=== PATIENT | male | born 1960 | race Caucasian/White ===

== ENCOUNTER 2018-02-20 08:46 | Day surgery (SDC) | payer OTHER ==
[2018-02-15 10:05] VITALS: BMI 37.0
[~2018-02-20 08:46] MED LIST: LACTATED RINGERS 1,000 ML IV SCH
[2018-02-20 09:04] VITALS: TEMP 97.6
[2018-02-20] MEDS ORDERED: PROPOFOL 10 MG/ML 20 ML VIAL IV ONE (10:11)
[2018-02-20] MEDS ORDERED: KETAMINE 10 MG/ML 20 ML VIAL ONE (10:11)
--- NOTE | 2018-02-20 10:12 | P.GSHP ---
History of Present Illness H&P Date: 02/20/18 Chief Complaint: Screening colonoscopy This is a 57-year-old male referred from [facility] clinic. Patient safe for screening colonoscopy. He's never had a colonoscopy before. Past Medical History Past Medical History: Asthma, GERD/Reflux, Hypertension, Sleep Apnea/CPAP/BIPAP Additional Past Medical History / Comment(s): seasonal allergies,occas. cough, has cpap History of Any Multi-Drug Resistant Organisms: None Reported Past Surgical History: Appendectomy Past Anesthesia/Blood Transfusion Reactions: No Reported Reaction Smoking Status: Never smoker - Past Family History Mother Family Medical History: No Reported History Medications and Allergies Home Medications Medication Instructions Recorded Confirmed Type Montelukast [Singulair] 10 mg PO DAILY 07/23/15 02/20/18 History Naproxen 500 mg PO Q12HR PRN 07/23/15 02/20/18 History Omeprazole [PriLOSEC] 20 mg PO DAILY 07/23/15 02/20/18 History Aspirin [Adult Low Dose Aspirin EC] 81 mg PO DAILY 04/19/16 02/20/18 History Budesonide-Formot 160-4.5 Mcg 2 puff INHALATION RT-BID 04/19/16 02/20/18 History [Symbicort 160-4.5 Mcg Inhaler] Atorvastatin [Lipitor] 40 mg PO HS 06/19/16 02/20/18 History Metoprolol Tartrate [Lopressor] 25 mg PO BID 06/19/16 02/20/18 History Vardenafil HCl [Levitra] 20 mg PO DAILY PRN 06/19/16 02/20/18 History Zolpidem [Ambien] 10 mg PO HS PRN #6 tab 06/19/16 02/20/18 Rx Allergies Allergy/AdvReac Type Severity Reaction Status Date / Time codeine Allergy Rash/Hives Verified 02/20/18 09:02 Surgical - Exam Vital Signs Temp Pulse Resp BP Pulse Ox 97.6 F 67 16 181/94 98 02/20/18 09:03 02/20/18 09:03 02/20/18 09:03 02/20/18 09:03 02/20/18 09:03 - General well developed, no distress - Eyes PERRL - ENT normal pinna - Neck no masses - Respiratory normal expansion - Cardiovascular Rhythm: regular - Abdomen Abdomen: soft, non tender Assessment and Plan Assessment: We will perform screening colonoscopy
--- NOTE | 2018-02-20 10:24 | P.OP ---
Date of Procedure: 02/20/18 Preoperative Diagnosis: Screening colonoscopy Postoperative Diagnosis: Normal colon Procedure(s) Performed: Colonoscopy Anesthesia: MAC Surgeon: Alex Melgar Pathology: none sent Condition: stable Disposition: PACU Description of Procedure: PROCEDURE: The patient was placed on the endoscopy table in the lateral position. Digital rectal examination was performed which revealed no abnormalities. The prostate was symmetrical without nodules. Flexible colonoscope was then placed in the patient's anus and passed throughout the entire colon. The ileocecal valve was visualized. The cecum, ascending, transverse, descending and sigmoid colon were normal. The rectum was normal as well. There were no masses, polyps or diverticula noted in the entire colon. SUMMARY OF FINDINGS: Normal colonoscopy.
[2018-02-20 11:11] VITALS: BP 150/80; PULSE 77; RESP 18
== END 2018-02-20 11:18 | disposition home or self-care (01) ==
LOC: ORWHC2ENDO 08:46
PROVIDERS: ATTEND Surgery
DX: Z12.11 Encounter for screening for malignant neoplasm of colon (principal); K21.9 Gastro-esophageal reflux disease without esophagitis; I10 Essential (primary) hypertension; E78.5 Hyperlipidemia, unspecified; J44.9 Chronic obstructive pulmonary disease, unspecified; G47.33 Obstructive sleep apnea (adult) (pediatric); Z99.89 Dependence on other enabling machines and devices; Z79.82 Long term (current) use of aspirin; Z79.51 Long term (current) use of inhaled steroids; Z79.899 Other long term (current) drug therapy; Z88.5 Allergy status to narcotic agent
CPT/HCPCS: J2704; G0121

== ENCOUNTER 2019-06-28 11:36 | Emergency (ER) | payer OTHER ==
[2019-06-28 11:48] VITALS: TEMP 98.4
[2019-06-28 12:06] LABS: Glucose,Whole Blood 329 mg/dL (75-99)
[2019-06-28] MEDS ORDERED: DIAZEPAM 5 MG/ML 2 ML INJ IVP STA (12:18)
[2019-06-28] MEDS ORDERED: SODIUM CHLORIDE 0.9% 1,000 ML IV STA (12:18)
[2019-06-28] MEDS ORDERED: MECLIZINE 25 MG TAB PO STA (12:18)
[2019-06-28] MEDS ORDERED: ONDANSETRON 4 MG/2 ML VIAL IVP STA (12:19)
--- NOTE | 2019-06-28 12:28 | ED ---
General Adult HPI - General Chief complaint: Dizziness Stated complaint: vision problems Time Seen by Provider: 06/28/19 11:45 Source: patient, RN notes reviewed, old records reviewed Mode of arrival: ambulatory Limitations: no limitations - History of Present Illness Initial comments: This is a 58-year-old male resents to the emergency department complaining of dizziness. 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 Patient states he came in and then has gotten continually worse per patient states anytime he moves his head everything starts to spin around. Patient states she's gets a slight headache and his temporal region bilaterally patient denies any numbness weakness. Patient denies any speech problems. Patient states he is very nauseated. Patient also states he has not had this before. Patient denies any new hearing deficit or ringing in ears. Patient states his vision appears to be a little blurred as well. Patient denies any chest pain palpitations difficulty breathing shortness of breath. Patient denies any abdominal pain. Patient denies any recent injury or fall. - Related Data Home Medications Medication Instructions Recorded Confirmed Montelukast [Singulair] 10 mg PO DAILY 07/23/15 02/20/18 Naproxen 500 mg PO Q12HR PRN 07/23/15 02/20/18 Omeprazole [PriLOSEC] 20 mg PO DAILY 07/23/15 02/20/18 Aspirin [Adult Low Dose Aspirin EC] 81 mg PO DAILY 04/19/16 02/20/18 Budesonide-Formot 160-4.5 Mcg 2 puff INHALATION RT-BID 04/19/16 02/20/18 [Symbicort 160-4.5 Mcg Inhaler] Atorvastatin [Lipitor] 40 mg PO HS 06/19/16 02/20/18 Metoprolol Tartrate [Lopressor] 25 mg PO BID 06/19/16 02/20/18 Vardenafil HCl [Levitra] 20 mg PO DAILY PRN 06/19/16 02/20/18 Previous Rx's Medication Instructions Recorded Zolpidem [Ambien] 10 mg PO HS PRN #6 tab 06/19/16 Meclizine [Antivert] 25 mg PO TID #20 tab 06/28/19 Allergies Allergy/AdvReac Type Severity Reaction Status Date / Time codeine Allergy Rash/Hives Verified 02/20/18 09:02 morphine Allergy Rash/Hives Verified 06/28/19 11:49 sulfacetamide Allergy Rash/Hives Verified 06/28/19 11:49 [From Sulfamide] Review of Systems ROS Statement: Those systems with pertinent positive or pertinent negative responses have been documented in the HPI. ROS Other: All systems not noted in ROS Statement are negative. Past Medical History Past Medical History: Asthma, GERD/Reflux, Hypertension, Sleep Apnea/CPAP/BIPAP Additional Past Medical History / Comment(s): seasonal allergies,occas. cough, has cpap History of Any Multi-Drug Resistant Organisms: None Reported Past Surgical History: Appendectomy Past Anesthesia/Blood Transfusion Reactions: No Reported Reaction Past Psychological History: No Psychological Hx Reported Smoking Status: Never smoker - Past Family History Mother Family Medical History: No Reported History General Exam - General Exam Comments Initial Comments: GENERAL: Patient is well-developed and well-nourished. Patient is nontoxic and well- hydrated and is in moderate distress. ENT: Neck is soft and supple. No significant lymphadenopathy is noted. Oropharynx is clear. Moist mucous membranes. Neck has full range of motion without eliciting any pain. EYES: The sclera were anicteric and conjunctiva were pink and moist. Extraocular movements were intact and pupils were equal round and reactive to light. Eyelids were unremarkable. PULMONARY: Unlabored respirations. Good breath sounds bilaterally. No audible rales rhonchi or wheezing was noted. CARDIOVASCULAR: There is a regular rate and rhythm without any murmurs gallops or rubs. ABDOMEN: Soft and nontender with normal bowel sounds. SKIN: Skin is clear with no lesions or rashes and otherwise unremarkable. NEUROLOGIC: Patient is alert and oriented x3. Cranial nerves II through XII are grossly intact. Motor and sensory are also intact. Normal speech, volume and content. Symmetrical smile. Cerebellar testing finger to nose was normal. MUSCULOSKELETAL: Normal extremities with adequate strength and full range of motion. No lower extremity swelling or edema. No calf tenderness. LYMPHATICS: No significant lymphadenopathy is noted PSYCHIATRIC: Normal psychiatric evaluation. Limitations: no limitations Course Vital Signs 06/28/19 06/28/19 11:44 15:09 Temperature 98.4 F Pulse Rate 69 71 Respiratory 16 16 Rate Blood Pressure 181/97 133/93 O2 Sat by Pulse 94 L 98 Oximetry Medical Decision Making - Medical Decision Making EKG shows normal sinus rhythm at 75 bpm MO interval 270 QRS 94 QT interval 398 QTC is 444 patient's EKG shows no acute abnormalities. CT of the brain shows no acute abnormality. CT angiogram of the head and neck show no acute abnormalities. Patient received Valium and Antivert and was feeling considerably better. Patient's sugar was elevated so I did give him some insulin here but he just got off the Medrol Dosepak this morning and he will be following up with his primary medical care doctor. - Lab Data Result diagrams: 06/28/19 11:59 06/28/19 15:01 Lab Results 06/28/19 06/28/19 06/28/19 Range/Units 11:59 11:59 11:59 WBC 9.6 (3.8-10.6) k/uL RBC 5.49 (4.30-5.90) m/uL Hgb 15.7 (13.0-17.5) gm/dL Hct 45.7 (39.0-53.0) % MCV 83.2 (80.0-100.0) fL MCH 28.6 (25.0-35.0) pg MCHC 34.3 (31.0-37.0) g/dL RDW 12.8 (11.5-15.5) % Plt Count 271 (150-450) k/uL Neutrophils % 69 % Lymphocytes % 21 % Monocytes % 6 % Eosinophils % 1 % Basophils % 2 % Neutrophils # 6.6 (1.3-7.7) k/uL Lymphocytes # 2.0 (1.0-4.8) k/uL Monocytes # 0.6 (0-1.0) k/uL Eosinophils # 0.1 (0-0.7) k/uL Basophils # 0.2 (0-0.2) k/uL PT 10.8 (9.0-12.0) sec INR 1.0 (<1.2) APTT 22.4 (22.0-30.0) sec Sodium (137-145) mmol/L Potassium (3.5-5.1) mmol/L Chloride (98-107) mmol/L Carbon Dioxide (22-30) mmol/L Anion Gap mmol/L BUN (9-20) mg/dL Creatinine (0.66-1.25) mg/dL Est GFR (CKD-EPI)AfAm (>60 ml/min/1.73 sqM) Est GFR (CKD-EPI)NonAf (>60 ml/min/1.73 sqM) Glucose (74-99) mg/dL POC Glucose (mg/dL) (75-99) mg/dL POC Glu Body Line Finisher ID Calcium (8.4-10.2) mg/dL Magnesium (1.6-2.3) mg/dL Total Bilirubin (0.2-1.3) mg/dL AST (17-59) U/L ALT (21-72) U/L Alkaline Phosphatase (38-126) U/L Troponin I (0.000-0.034) ng/mL Total Protein (6.3-8.2) g/dL Albumin (3.5-5.0) g/dL Urine Color Yellow Urine Appearance Clear (Clear) Urine pH 6.0 (5.0-8.0) Ur Specific Pella 1.042 H (1.001-1.035) Urine Protein Trace H (Negative) Urine Glucose (UA) 4+ H (Negative) Urine Ketones Trace H (Negative) Urine Blood Negative (Negative) Urine Nitrite Negative (Negative) Urine Bilirubin Negative (Negative) Urine Urobilinogen <2.0 (<2.0) mg/dL Ur Leukocyte Esterase Negative (Negative) 06/28/19 06/28/19 06/28/19 Range/Units 12:04 15:01 15:01 WBC (3.8-10.6) k/uL RBC (4.30-5.90) m/uL Hgb (13.0-17.5) gm/dL Hct (39.0-53.0) % MCV (80.0-100.0) fL MCH (25.0-35.0) pg MCHC (31.0-37.0) g/dL RDW (11.5-15.5) % Plt Count (150-450) k/uL Neutrophils % % Lymphocytes % % Monocytes % % Eosinophils % % Basophils % % Neutrophils # (1.3-7.7) k/uL Lymphocytes # (1.0-4.8) k/uL Monocytes # (0-1.0) k/uL Eosinophils # (0-0.7) k/uL Basophils # (0-0.2) k/uL PT (9.0-12.0) sec INR (<1.2) APTT (22.0-30.0) sec Sodium 139 (137-145) mmol/L Potassium 3.9 (3.5-5.1) mmol/L Chloride 106 (98-107) mmol/L Carbon Dioxide 28 (22-30) mmol/L Anion Gap 5 mmol/L BUN 19 (9-20) mg/dL Creatinine 0.91 (0.66-1.25) mg/dL Est GFR (CKD-EPI)AfAm >90 (>60 ml/min/1.73 sqM) Est GFR (CKD-EPI)NonAf >90 (>60 ml/min/1.73 sqM) Glucose 298 H (74-99) mg/dL POC Glucose (mg/dL) 329 H (75-99) mg/dL POC Glu Body Line Finisher ID Criss Card Calcium 8.2 L (8.4-10.2) mg/dL Magnesium 1.9 (1.6-2.3) mg/dL Total Bilirubin 1.0 (0.2-1.3) mg/dL AST 51 (17-59) U/L ALT 85 H (21-72) U/L Alkaline Phosphatase 117 (38-126) U/L Troponin I <0.012 (0.000-0.034) ng/mL Total Protein 6.2 L (6.3-8.2) g/dL Albumin 3.6 (3.5-5.0) g/dL Urine Color Urine Appearance (Clear) Urine pH (5.0-8.0) Ur Specific Pella (1.001-1.035) Urine Protein (Negative) Urine Glucose (UA) (Negative) Urine Ketones (Negative) Urine Blood (Negative) Urine Nitrite (Negative) Urine Bilirubin (Negative) Urine Urobilinogen (<2.0) mg/dL Ur Leukocyte Esterase (Negative) Disposition Clinical Impression: Vertigo, New onset type 2 diabetes mellitus Disposition: HOME SELF-CARE Condition: Good Instructions (If sedation given, give patient instructions): Vertigo (ED) Prescriptions: Meclizine [Antivert] 25 mg PO TID #20 tab Is patient prescribed a controlled substance at d/c from ED?: No Referrals: [facility],Clinic [Primary Care Provider] - 1-2 days Time of Disposition: 16:03
[2019-06-28 13:49] LABS: Basophils # (A) 0.2 k/uL (0-0.2); Basophils % (A) 2 %; Eosinophils # (A) 0.1 k/uL (0-0.7); Eosinophils % (A) 1 %; HCT 45.7 % (39.0-53.0); HGB 15.7 gm/dL (13.0-17.5); Lymphocytes % (A) 21 %; MCH 28.6 pg (25.0-35.0); MCHC 34.3 g/dL (31.0-37.0); MCV 83.2 fL (80.0-100.0); Mean Platelet Volume 7.6; Monocytes # (A) 0.6 k/uL (0-1.0); Monocytes % (A) 6 %; Neutrophils # (A) 6.6 k/uL (1.3-7.7); Neutrophils % (A) 69 %; Platelet Count 271 k/uL (150-450); RBC 5.49 m/uL (4.30-5.90); RDW 12.8 % (11.5-15.5); WBC 9.6 k/uL (3.8-10.6)
--- NOTE | 2019-06-28 13:57 | CT ---
EXAMINATION TYPE: CT brain wo con DATE OF EXAM: 06/28/2019 COMPARISON: Previous study dated 06/19/2016 HISTORY: vertigo CT DLP: 1088 mGycm Automated exposure control for dose reduction was used. FINDINGS: Central structures are midline. There is no evidence of hydrocephalus. No acute focal lesion, mass ef fect or midline shift is seen. I do not see evidence of intracranial blood. Visualized portions of the paranasal sinuses and mastoids are clear. The bony calvarium is intact. IMPRESSION: NO ACUTE INTRACRANIAL ABNORMALITY.
[2019-06-28 14:08] LABS: Appearance,Urine Clear (Clear); Bilirubin,Urine Negative (Negative); Blood,Urine Negative (Negative); Color,Urine Yellow; Glucose,Urine (UA) 4+ (Negative); Ketones,Urine Trace (Negative); Leukocyte Esterase,Urine Negative (Negative); Nitrite,Urine Negative (Negative); Partial Thromboplastin Time 22.4 sec (22.0-30.0); Protein,Urine Trace (Negative); Prothrombin Time 10.8 sec (9.0-12.0); Specific Gravity,Urine 1.042 (1.001-1.035); Urobilinogen,Urine <2.0 mg/dL (<2.0)
--- NOTE | 2019-06-28 14:30 | CT ---
EXAMINATION TYPE: CT angio head neck DATE OF EXAM: 06/28/2019 HISTORY: Vertigo COMPARISON: None CT DLP: mGycm. Automated Exposure Control for Dose Reduction was Utilized. TECHNIQUE: CTA scan of the neck is performed , patient injected with mL of , axial images are obtain ed, coronal and sagittal reformatted images are reviewed. Three-D reconstructed images are created on an independent workstation and reviewed. The contrast was Isovue 65 mL. There are 3-D post processed images. FINDINGS: There is normal branching pattern of the great vessels on the aortic arch. There is bilateral arteria l flow in the subclavian arteries. There is bilateral arterial flow in the vertebral arteries which a re fairly symmetric. There is arterial flow in the vertebrobasilar artery system. There is arterial flow in the common internal and external carotid arteries bilaterally. The carotid artery bifurcations appear widely patent. There is arterial flow in the anterior middle and posterior cerebral arteries. There is normal contra st opacification of the venous sinuses. There is no mass effect. There is no evidence of intracranial aneurysm or neovascularity. There is no mass effect. There is no evidence of hemodynamic stenosis of the intracranial arteries. IMPRESSION: Negative CT angiogram of the neck. Negative CT angiogram of the brain.
--- NOTE | 2019-06-28 14:31 | XR ---
EXAMINATION TYPE: XR chest 2V DATE OF EXAM: 06/28/2019 COMPARISON: NONE HISTORY: Chest pain TECHNIQUE: Frontal and lateral views of the chest are obtained. FINDINGS: There is no heart failure nor confluent pneumonic infiltrate. Costophrenic angles are brittany r. There are chest leads. Bony thorax is intact. IMPRESSION: No active cardiopulmonary disease.
[2019-06-28] MEDS ORDERED: KETOROLAC 30 MG/ML 1 ML VIAL IVP STA (15:16)
[2019-06-28 15:19] LABS: ALT 85 U/L (21-72); AST 51 U/L (17-59); African American GFR (CKD) >90 (>60 ml/min/1.73 sqM); Albumin 3.6 g/dL (3.5-5.0); Alkaline Phosphatase 117 U/L (38-126); Anion Gap 5 mmol/L; Blood Urea Nitrogen 19 mg/dL (9-20); Calcium 8.2 mg/dL (8.4-10.2); Carbon Dioxide 28 mmol/L (22-30); Chloride 106 mmol/L (98-107); Glucose 298 mg/dL (74-99); Magnesium 1.9 mg/dL (1.6-2.3); Potassium 3.9 mmol/L (3.5-5.1); Sodium 139 mmol/L (137-145); Total Protein 6.2 g/dL (6.3-8.2)
[2019-06-28] MEDS ORDERED: INSULIN ASPART (NovoLOG) 100 UNIT/ML VIAL SQ ONE (16:01)
[2019-06-28 16:17] VITALS: BP 150/93; PULSE 79; RESP 10
== END 2019-06-28 16:23 | disposition home or self-care (01) ==
LOC: EC 11:36
DX: E11.9 Type 2 diabetes mellitus without complications (principal); R42 Dizziness and giddiness; R51 Headache; R11.0 Nausea; J45.909 Unspecified asthma, uncomplicated; K21.9 Gastro-esophageal reflux disease without esophagitis; I10 Essential (primary) hypertension; G47.30 Sleep apnea, unspecified; Z88.2 Allergy status to sulfonamides; Z88.5 Allergy status to narcotic agent; Z79.51 Long term (current) use of inhaled steroids; Z79.82 Long term (current) use of aspirin; Z79.899 Other long term (current) drug therapy; Z99.89 Dependence on other enabling machines and devices; Z90.49 Acquired absence of other specified parts of digestive tract
CPT/HCPCS: 99285; 96374; 96375 ×2; 96361; 36415; 93005; 80053; 83735; 84484; 85025; 85610; 85730; 81003; 71046; 70496; 70450; 70498; J3360; J2405; J1885; Q9967

== ENCOUNTER 2020-03-31 21:27 | Emergency (ER) | payer OTHER ==
[2020-03-31 21:40] VITALS: RESP 20; TEMP 98.1
[2020-03-31] MEDS ORDERED: ONDANSETRON 4 MG/2 ML VIAL IVP STA (21:41)
--- NOTE | 2020-03-31 22:05 | XR ---
EXAMINATION TYPE: XR pelvis AP view DATE OF EXAM: 03/31/2020 COMPARISON: NONE HISTORY: Trauma. Pain. TECHNIQUE: Single view FINDINGS: Pelvic ring appears intact. Proximal femurs and hip joints appear intact. Sacroiliac joints appear normal. IMPRESSION: Negative exam. No fracture seen.
--- NOTE | 2020-03-31 22:08 | XR ---
EXAMINATION TYPE: XR chest 1V portable DATE OF EXAM: 03/31/2020 COMPARISON: 06/28/2019 HISTORY: Chest pain trauma. Fell from 8 foot ladder. TECHNIQUE: Single view FINDINGS: There is no heart failure nor confluent pneumonic infiltrate. There is no evidence of pleur al effusion or pneumothorax. I see no displaced rib fracture. There is probably some minimal atelect asis left lung base. IMPRESSION: Minimal atelectasis left lung base. No pneumothorax.
--- NOTE | 2020-03-31 22:20 | CT ---
EXAMINATION TYPE: CT brain cspine wo con DATE OF EXAM: 03/31/2020 COMPARISON: 07/23/2015 HISTORY: Fall with severe neck pain. Headache CT DLP: 2027.2 mGycm Automated exposure control for dose reduction was used. Exam performed with no contrast. Ventricles have normal size. There is no mass effect nor midline shift. There is no sign of intracran ial hemorrhage. The calvarium is intact. There is no evidence of cerebral edema. Skull base is intact . Cervical vertebra have normal alignment. There is hypertrophic degenerative disc changes from C4 to C 7. There is calcification of the posterior longitudinal ligament at the C6 level with some narrowing of the spinal canal. There is no compression fracture. There is multilevel narrowing of the spinal ca nal due to calcification and thickening along the posterior longitudinal ligament. The canal is also developmentally not adequate. IMPRESSION: Negative CT scan of the brain. No acute intracranial abnormality. No change compared to old exam. Spondylotic changes in the cervical spine with multilevel cervical spinal stenosis. There is moderate ly severe spinal stenosis at the C6 level due to thickening and calcification of the posterior longit udinal ligament. This appears slightly worse than old exam.
[2020-03-31] MEDS ORDERED: METOCLOPRAMIDE 5 MG/ML 2 ML VIAL IVP STA (22:26)
[2020-03-31 22:34] LABS: Basophils % (A) 0 %; Eosinophils # (A) 0.1 k/uL (0-0.7); Eosinophils % (A) 1 %; HCT 43.3 % (39.0-53.0); HGB 14.5 gm/dL (13.0-17.5); Lymphocytes # (A) 2.3 k/uL (1.0-4.8); Lymphocytes % (A) 26 %; MCH 27.9 pg (25.0-35.0); MCHC 33.5 g/dL (31.0-37.0); MCV 83.2 fL (80.0-100.0); Mean Platelet Volume 7.3; Monocytes # (A) 0.5 k/uL (0-1.0); Monocytes % (A) 6 %; Neutrophils # (A) 5.8 k/uL (1.3-7.7); Neutrophils % (A) 65 %; Platelet Count 253 k/uL (150-450); RBC 5.21 m/uL (4.30-5.90); RDW 13.4 % (11.5-15.5); WBC 8.8 k/uL (3.8-10.6)
[2020-03-31 22:43] LABS: INR 1.1 (<1.2); Partial Thromboplastin Time 22.5 sec (22.0-30.0); Prothrombin Time 10.8 sec (9.0-12.0)
[2020-03-31 22:47] LABS: ALT 61 U/L (4-49); AST 45 U/L (17-59); African American GFR (CKD) 73 (>60 ml/min/1.73 sqM); Albumin 4.1 g/dL (3.5-5.0); Alcohol <10 mg/dL; Alkaline Phosphatase 95 U/L (38-126); Anion Gap 7 mmol/L; Blood Urea Nitrogen 16 mg/dL (9-20); Calcium 8.7 mg/dL (8.4-10.2); Carbon Dioxide 26 mmol/L (22-30); Chloride 106 mmol/L (98-107); Glucose 143 mg/dL (74-99); Non-African American GFR(CKD) 63 (>60 ml/min/1.73 sqM); Potassium 3.7 mmol/L (3.5-5.1); Sodium 139 mmol/L (137-145); Total Bilirubin 0.6 mg/dL (0.2-1.3); Total Protein 6.6 g/dL (6.3-8.2)
--- NOTE | 2020-03-31 22:59 | XR ---
EXAMINATION TYPE: XR shoulder complete LT DATE OF EXAM: 03/31/2020 COMPARISON: NONE HISTORY: Fall. Shoulder pain TECHNIQUE: 3 views FINDINGS: There is some spurring at the glenohumeral joint. I see no fracture nor dislocation. AC lori nt appears normal. The left upper ribs appear intact. 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 No fracture seen.
--- NOTE | 2020-03-31 23:07 | ED ---
Fall HPI - General Chief Complaint: Fall Stated Complaint: fall Time Seen by Provider: 03/31/20 21:27 Source: patient, family, EMS, RN notes reviewed Mode of arrival: EMS - History of Present Illness Initial Comments: This is a 59-year-old male who was on a foot ladder when he apparently states the Q of from underneath him he ended up on the ground in soft sand the dirt flat on top of him. He denies a loss of consciousness does complain of head pain and some neck pain with some numbness to his left hand. Complains left shoulder pain. He does have a history of a recent injury to the left shoulder. He denies any back chest abdominal pain a loss of function to his upper or lower extremities at this time. He was brought in by EMS. He did have a cervical collar in place. MD Complaint: fall - Related Data Home Medications Medication Instructions Recorded Confirmed Montelukast [Singulair] 10 mg PO DAILY 07/23/15 02/20/18 Naproxen 500 mg PO Q12HR PRN 07/23/15 02/20/18 Omeprazole [PriLOSEC] 20 mg PO DAILY 07/23/15 02/20/18 Aspirin [Adult Low Dose Aspirin EC] 81 mg PO DAILY 04/19/16 02/20/18 Budesonide-Formot 160-4.5 Mcg 2 puff INHALATION RT-BID 04/19/16 02/20/18 [Symbicort 160-4.5 Mcg Inhaler] Atorvastatin [Lipitor] 40 mg PO HS 06/19/16 02/20/18 Metoprolol Tartrate [Lopressor] 25 mg PO BID 06/19/16 02/20/18 Vardenafil HCl [Levitra] 20 mg PO DAILY PRN 06/19/16 02/20/18 Previous Rx's Medication Instructions Recorded Zolpidem [Ambien] 10 mg PO HS PRN #6 tab 06/19/16 Meclizine [Antivert] 25 mg PO TID #20 tab 06/28/19 Orphenadrine [Norflex] 100 mg PO Q12H #7 tablet.er 03/31/20 Allergies Allergy/AdvReac Type Severity Reaction Status Date / Time codeine Allergy Rash/Hives Verified 03/31/20 21:40 morphine Allergy Rash/Hives Verified 08/19/20 21:40 sulfacetamide Allergy Rash/Hives Verified 03/31/20 21:40 [From Sulfamide] Review of Systems ROS Statement: Those systems with pertinent positive or pertinent negative responses have been documented in the HPI. ROS Other: All systems not noted in ROS Statement are negative. Past Medical History Past Medical History: Asthma, GERD/Reflux, Hypertension, Sleep Apnea/CPAP/BIPAP Additional Past Medical History / Comment(s): seasonal allergies,occas. cough, has cpap History of Any Multi-Drug Resistant Organisms: None Reported Past Surgical History: Appendectomy Past Anesthesia/Blood Transfusion Reactions: No Reported Reaction Past Psychological History: No Psychological Hx Reported Smoking Status: Never smoker Past Alcohol Use History: Rare Past Drug Use History: None Reported - Past Family History Mother Family Medical History: No Reported History General Exam - General Exam Comments Initial Comments: This is a well-developed well-nourished awake alert oriented times 3 male with a [place] Coma Scale coma scale 15 Limitations: no limitations General appearance: alert, anxious Head exam: Present: atraumatic, normocephalic, normal inspection Eye exam: Present: normal appearance, PERRL, EOMI. Absent: scleral icterus, conjunctival injection, periorbital swelling ENT exam: Present: normal exam, mucous membranes moist Neck exam: Present: normal inspection, other (Cervical collar in place no surgery or bruits no definitive step-off or crepitation is some tenderness palpation of the paraspinous musculature.). Absent: tenderness, meningismus, lymphadenopathy Respiratory exam: Present: normal lung sounds bilaterally. Absent: respiratory distress, wheezes, rales, rhonchi, stridor Cardiovascular Exam: Present: regular rate, normal rhythm, normal heart sounds. Absent: systolic murmur, diastolic murmur, rubs, gallop, clicks GI/Abdominal exam: Present: soft, normal bowel sounds. Absent: distended, tenderness, guarding, rebound, rigid, bruit, pulsatile mass Rectal exam: Present: deferred Extremities exam: Present: normal inspection, full ROM, tenderness (Tenderness palpation over left shoulder no step-off or crepitation no other extremity injuries noted good movement of all extremities no sensorimotor or basilar defic its), normal capillary refill. Absent: pedal edema, joint swelling, calf tenderness Back exam: Present: normal inspection Neurological exam: Present: alert, oriented X3, CN II-XII intact Psychiatric exam: Present: normal affect, normal mood Skin exam: Present: warm, dry, intact, normal color. Absent: rash Course Vital Signs 03/31/20 03/31/20 03/31/20 21:32 22:22 23:32 Temperature 98.1 F Pulse Rate 66 69 71 Respiratory 20 20 20 Rate Blood Pressure 167/98 153/103 156/93 O2 Sat by Pulse 97 97 96 Oximetry Medical Decision Making - Medical Decision Making I did reevaluate patient several occasions he did remove the cervical collar. Patient has some tenderness to palpation over the right posterior lateral neck musculature no midline tenderness no step-off or crepitation. The presentation is consistent with a cervical strain. Patient did get some relief after IV T oradol he does have Naprosyn at home I will write a prescription for Norflex for him. His daughter was a nurse's present as well as patient's patient will be discharged we did discuss the usual course of events for healing and recovery. - Lab Data Result diagrams: 03/31/20 22:15 03/31/20 22:15 Lab Results 03/31/20 03/31/20 03/31/20 Range/Units 22:15 22:15 22:15 WBC 8.8 (3.8-10.6) k/uL RBC 5.21 (4.30-5.90) m/uL Hgb 14.5 (13.0-17.5) gm/dL Hct 43.3 (39.0-53.0) % MCV 83.2 (80.0-100.0) fL MCH 27.9 (25.0-35.0) pg MCHC 33.5 (31.0-37.0) g/dL RDW 13.4 (11.5-15.5) % Plt Count 253 (150-450) k/uL Neutrophils % 65 % Lymphocytes % 26 % Monocytes % 6 % Eosinophils % 1 % Basophils % 0 % Neutrophils # 5.8 (1.3-7.7) k/uL Lymphocytes # 2.3 (1.0-4.8) k/uL Monocytes # 0.5 (0-1.0) k/uL Eosinophils # 0.1 (0-0.7) k/uL Basophils # 0.0 (0-0.2) k/uL PT 10.8 (9.0-12.0) sec INR 1.1 (<1.2) APTT 22.5 (22.0-30.0) sec Sodium 139 (137-145) mmol/L Potassium 3.7 (3.5-5.1) mmol/L Chloride 106 (98-107) mmol/L Carbon Dioxide 26 (22-30) mmol/L Anion Gap 7 mmol/L BUN 16 (9-20) mg/dL Creatinine 1.23 (0.66-1.25) mg/dL Est GFR (CKD-EPI)AfAm 73 (>60 ml/min/1.73 sqM) Est GFR (CKD-EPI)NonAf 63 (>60 ml/min/1.73 sqM) Glucose 143 H (74-99) mg/dL Calcium 8.7 (8.4-10.2) mg/dL Total Bilirubin 0.6 (0.2-1.3) mg/dL AST 45 (17-59) U/L ALT 61 H (4-49) U/L Alkaline Phosphatase 95 (38-126) U/L Troponin I (0.000-0.034) ng/mL Total Protein 6.6 (6.3-8.2) g/dL Albumin 4.1 (3.5-5.0) g/dL Serum Alcohol <10 mg/dL Blood Type Confirm 03/31/20 03/31/20 Range/Units 22:15 22:17 WBC (3.8-10.6) k/uL RBC (4.30-5.90) m/uL Hgb (13.0-17.5) gm/dL Hct (39.0-53.0) % MCV (80.0-100.0) fL MCH (25.0-35.0) pg MCHC (31.0-37.0) g/dL RDW (11.5-15.5) % Plt Count (150-450) k/uL Neutrophils % % Lymphocytes % % Monocytes % % Eosinophils % % Basophils % % Neutrophils # (1.3-7.7) k/uL Lymphocytes # (1.0-4.8) k/uL Monocytes # (0-1.0) k/uL Eosinophils # (0-0.7) k/uL Basophils # (0-0.2) k/uL PT (9.0-12.0) sec INR (<1.2) APTT (22.0-30.0) sec Sodium (137-145) mmol/L Potassium (3.5-5.1) mmol/L Chloride (98-107) mmol/L Carbon Dioxide (22-30) mmol/L Anion Gap mmol/L BUN (9-20) mg/dL Creatinine (0.66-1.25) mg/dL Est GFR (CKD-EPI)AfAm (>60 ml/min/1.73 sqM) Est GFR (CKD-EPI)NonAf (>60 ml/min/1.73 sqM) Glucose (74-99) mg/dL Calcium (8.4-10.2) mg/dL Total Bilirubin (0.2-1.3) mg/dL AST (17-59) U/L ALT (4-49) U/L Alkaline Phosphatase (38-126) U/L Troponin I 0.013 (0.000-0.034) ng/mL Total Protein (6.3-8.2) g/dL Albumin (3.5-5.0) g/dL Serum Alcohol mg/dL Blood Type Confirm A Positive - EKG Data -: EKG Interpreted by Me EKG shows normal: sinus rhythm EKG Comments: Sinus rhythm at 65. Interval 194 QRS 92 QT since QTC 446/[address]-T wave changes - Radiology Data Radiology results: report reviewed (I did review the imaging and report no acute findings.), image reviewed Disposition Clinical Impression: Fall, Cervical strain, acute, Left shoulder strain Disposition: HOME SELF-CARE Condition: Good Instructions (If sedation given, give patient instructions): Cervical Strain (DC), Rotator Cuff Injury (ED) Additional Instructions: Continue to use the Naprosyn you have a home as needed. Ice 24-48 hours and warm compresses afterwards. Prescriptions: Orphenadrine [Norflex] 100 mg PO Q12H #7 tablet.er Is patient prescribed a controlled substance at d/c from ED?: No Referrals: [facility],Clinic [Primary Care Provider] - 1-2 days
[2020-03-31] MEDS ORDERED: KETOROLAC 15 MG/ML 1 ML VIAL IVP STA (23:15)
[2020-03-31 23:33] VITALS: BP 156/93; PULSE 71
== END 2020-04-01 00:01 | disposition home or self-care (01) ==
LOC: EC 21:27
DX: S16.1XXA Strain of muscle, fascia and tendon at neck level, initial encounter (principal); S46.912A Strain of unspecified muscle, fascia and tendon at shoulder and upper arm level, left arm, initial encounter; K21.9 Gastro-esophageal reflux disease without esophagitis; I10 Essential (primary) hypertension; J45.909 Unspecified asthma, uncomplicated; G47.30 Sleep apnea, unspecified; Z79.51 Long term (current) use of inhaled steroids; Z79.82 Long term (current) use of aspirin; Z79.899 Other long term (current) drug therapy; Z88.5 Allergy status to narcotic agent; Z88.2 Allergy status to sulfonamides; Z99.89 Dependence on other enabling machines and devices; W19.XXXA Unspecified fall, initial encounter
CPT/HCPCS: 36415; 93005; 86900; 86901; 80053; 84484; 85025; 85610; 85730; 86850; 80320; 72170; 73030; 71045; 72125; 70450; 99285; 96374; 96375 ×2; J2765; J2405; J1885

== ENCOUNTER 2020-07-27 21:16 | Emergency (ER) | payer OTHER ==
[2020-07-27] MEDS ORDERED: PANTOPRAZOLE 40 MG/10 ML VIAL IVP STA (21:25)
[2020-07-27] MEDS ORDERED: ONDANSETRON 4 MG/2 ML VIAL IVP STA (21:25)
[2020-07-27] MEDS ORDERED: HYDROmorphone 0.5 MG/0.5 ML SYRINGE IVP STA (21:25)
[2020-07-27] MEDS ORDERED: SODIUM CHLORIDE 0.9% 1,000 ML IV STA (21:25)
--- NOTE | 2020-07-27 21:25 | ED ---
Abdominal Pain HPI - General Chief Complaint: Abdominal Pain Stated Complaint: ABD pain Time Seen by Provider: 07/27/20 21:23 Source: patient Mode of arrival: ambulatory Limitations: no limitations - History of Present Illness Initial Comments: 59-year-old male with history of diabetes presenting to emergency Department with chief complaint of abdominal pain. Patient reports the pain started earlier this morning and it goes from the left side across the abdomen to the right side. Patient reports this was a gradual onset pain but now the pain is sharp and cramping at the same time. Patient reports it comes and goes in ways. States he is also developed nausea with multiple episodes of nonbilious and nonbloody vomiting. He also reports having diarrhea over the last week after he was started on glipizide. He only takes metformin for his diabetes. Patient is about to be started on long acting insulin because his glucose is not well controlled. He denies any urinary symptoms. Denies any hematuria, hematochezia or melena. Denies testicular pain swelling or penile discharge. He denies any chest pain. Surgical history of appendectomy. - Related Data Home Medications Medication Instructions Recorded Confirmed Montelukast [Singulair] 10 mg PO DAILY 07/23/15 02/20/18 Naproxen 500 mg PO Q12HR PRN 07/23/15 02/20/18 Omeprazole [PriLOSEC] 20 mg PO DAILY 07/23/15 02/20/18 Aspirin [Adult Low Dose Aspirin EC] 81 mg PO DAILY 04/19/16 02/20/18 Budesonide-Formot 160-4.5 Mcg 2 puff INHALATION RT-BID 04/19/16 02/20/18 [Symbicort 160-4.5 Mcg Inhaler] Atorvastatin [Lipitor] 40 mg PO HS 06/19/16 02/20/18 Metoprolol Tartrate [Lopressor] 25 mg PO BID 06/19/16 02/20/18 Vardenafil HCl [Levitra] 20 mg PO DAILY PRN 06/19/16 02/20/18 Previous Rx's Medication Instructions Recorded Zolpidem [Ambien] 10 mg PO HS PRN #6 tab 06/19/16 Meclizine [Antivert] 25 mg PO TID #20 tab 06/28/19 Orphenadrine [Norflex] 100 mg PO Q12H #7 tablet.er 03/31/20 Ondansetron Odt [Zofran Odt] 4 mg PO Q8HR PRN #20 tab 07/27/20 Allergies Allergy/AdvReac Type Severity Reaction Status Date / Time codeine Allergy Rash/Hives Verified 07/27/20 21:21 morphine Allergy Rash/Hives Verified 03/31/20 21:40 sulfacetamide Allergy Rash/Hives Verified 03/31/20 21:40 [From Sulfamide] Review of Systems ROS Statement: Those systems with pertinent positive or pertinent negative responses have been documented in the HPI. ROS Other: All systems not noted in ROS Statement are negative. Past Medical History Past Medical History: Asthma, GERD/Reflux, Hypertension, Sleep Apnea/CPAP/BIPAP Additional Past Medical History / Comment(s): seasonal allergies,occas. cough, has cpap, positional apnea. History of Any Multi-Drug Resistant Organisms: None Reported Past Surgical History: Appendectomy Past Anesthesia/Blood Transfusion Reactions: No Reported Reaction Past Psychological History: No Psychological Hx Reported Smoking Status: Never smoker Past Alcohol Use History: Rare Past Drug Use History: None Reported - Past Family History Mother Family Medical History: No Reported History General Exam Limitations: no limitations General appearance: alert, in no apparent distress, obese Head exam: Present: atraumatic, normocephalic, normal inspection Eye exam: Present: normal appearance, PERRL, EOMI Pupils: Present: normal accommodation ENT exam: Present: normal exam, normal oropharynx, mucous membranes moist, TM's normal bilaterally, normal external ear exam Neck exam: Present: normal inspection, full ROM. Absent: tenderness Respiratory exam: Present: normal lung sounds bilaterally. Absent: respiratory distress, wheezes, rales Cardiovascular Exam: Present: regular rate, normal rhythm, normal heart sounds. Absent: systolic murmur, diastolic murmur GI/Abdominal exam: Present: soft, tenderness (Diffuse abdominal pain). Absent: distended, guarding, rebound, rigid Extremities exam: Present: normal inspection, full ROM, normal capillary refill. Absent: tenderness, pedal edema, joint swelling Back exam: Present: normal inspection, full ROM. Absent: tenderness, CVA tenderness (R), CVA tenderness (L) Neurological exam: Present: alert, oriented X3, normal gait Psychiatric exam: Present: normal affect, normal mood Skin exam: Present: warm, dry, intact, normal color Course Vital Signs 07/27/20 07/27/20 07/27/20 21:16 21:35 22:09 Temperature 98.2 F Pulse Rate 83 79 Respiratory 21 18 Rate Blood Pressure 194/125 158/106 Blood Pressure 150/104 [Left Arm Sitting] Blood Pressure 161/90 [Right Arm Sitting] O2 Sat by Pulse 98 94 L Oximetry 07/27/20 07/28/20 22:57 00:15 Temperature 97.6 F Pulse Rate 77 75 Respiratory 18 18 Rate Blood Pressure 146/93 155/98 Blood Pressure [Left Arm Sitting] Blood Pressure [Right Arm Sitting] O2 Sat by Pulse 93 L 95 Oximetry Medical Decision Making - Medical Decision Making 59-year-old male presenting to emergency Department with a chief complaint of abdominal pain nausea vomiting diarrhea. On physical examination, patient has diffuse abdominal pain. Patient was given Bentyl, antiemetics, IV fluids and analgesia. CBC shows mild leukocytosis of 12 care which I suspect is more reactive versus infectious. CMP and coags within normal limits. Initial troponin negative. EKG showing sinus rhythm. UA is unremarkable. Patient has had diarrhea for about 1 week after he began taking glipizide. However the nausea vomiting abdominal pain all started today with a gradual onset. No focal deficits. Equal and strong pulses in bilateral upper and lower extremities. CT of the abdomen reveals diverticulosis without diverticulitis. There is also an ileus with no detectable transition point. Patient does not have an appendix. On reevaluation, patient reports improvement in symptoms. Patient was advised to go on a clear liquid diet for the next 2-3 days. He was advised to follow with his primary care physician. Return parameters were thoroughly discussed the patient was understanding and agreeable. Case discussed with physician. - Lab Data Result diagrams: 07/27/20 21:49 07/27/20 21:49 Lab Results 07/27/20 07/27/20 07/27/20 Range/Units 21:49 21:49 21:49 WBC 12.0 H (3.8-10.6) k/uL RBC 5.90 (4.30-5.90) m/uL Hgb 16.3 (13.0-17.5) gm/dL Hct 48.4 (39.0-53.0) % MCV 82.1 (80.0-100.0) fL MCH 27.7 (25.0-35.0) pg MCHC 33.7 (31.0-37.0) g/dL RDW 13.1 (11.5-15.5) % Plt Count 284 (150-450) k/uL MPV 7.2 Neutrophils % 69 % Lymphocytes % 22 % Monocytes % 5 % Eosinophils % 2 % Basophils % 1 % Neutrophils # 8.3 H (1.3-7.7) k/uL Lymphocytes # 2.7 (1.0-4.8) k/uL Monocytes # 0.6 (0-1.0) k/uL Eosinophils # 0.2 (0-0.7) k/uL Basophils # 0.1 (0-0.2) k/uL PT (9.0-12.0) sec INR (<1.2) APTT (22.0-30.0) sec Sodium 139 (137-145) mmol/L Potassium 4.5 (3.5-5.1) mmol/L Chloride 107 (98-107) mmol/L Carbon Dioxide 23 (22-30) mmol/L Anion Gap 9 mmol/L BUN 15 (9-20) mg/dL Creatinine 1.09 (0.66-1.25) mg/dL Est GFR (CKD-EPI)AfAm 84 (>60 ml/min/1.73 sqM) Est GFR (CKD-EPI)NonAf 73 (>60 ml/min/1.73 sqM) Glucose 165 H (74-99) mg/dL Calcium 9.0 (8.4-10.2) mg/dL Total Bilirubin 0.9 (0.2-1.3) mg/dL AST 46 (17-59) U/L ALT 84 H (4-49) U/L Alkaline Phosphatase 100 (38-126) U/L Troponin I (0.000-0.034) ng/mL Total Protein 7.4 (6.3-8.2) g/dL Albumin 4.4 (3.5-5.0) g/dL Lipase 106 (23-300) U/L Urine Color Yellow Urine Appearance Clear (Clear) Urine pH 5.0 (5.0-8.0) Ur Specific [place] 1.050 H (1.001-1.035) Urine Protein 1+ H (Negative) Urine Glucose (UA) Negative (Negative) Urine Ketones Negative (Negative) Urine Blood Negative (Negative) Urine Nitrite Negative (Negative) Urine Bilirubin Negative (Negative) Urine Urobilinogen <2.0 (<2.0) mg/dL Ur Leukocyte Esterase Negative (Negative) Urine RBC 2 (0-5) /hpf Urine WBC 2 (0-5) /hpf Ur Squamous Epith Cells 1 (0-4) /hpf Urine Mucus Rare H (None) /hpf 07/27/20 07/27/20 Range/Units 21:49 21:49 WBC (3.8-10.6) k/uL RBC (4.30-5.90) m/uL Hgb (13.0-17.5) gm/dL Hct (39.0-53.0) % MCV (80.0-100.0) fL MCH (25.0-35.0) pg MCHC (31.0-37.0) g/dL RDW (11.5-15.5) % Plt Count (150-450) k/uL MPV Neutrophils % % Lymphocytes % % Monocytes % % Eosinophils % % Basophils % % Neutrophils # (1.3-7.7) k/uL Lymphocytes # (1.0-4.8) k/uL Monocytes # (0-1.0) k/uL Eosinophils # (0-0.7) k/uL Basophils # (0-0.2) k/uL PT 11.1 (9.0-12.0) sec INR 1.1 (<1.2) APTT 24.7 (22.0-30.0) sec Sodium (137-145) mmol/L Potassium (3.5-5.1) mmol/L Chloride (98-107) mmol/L Carbon Dioxide (22-30) mmol/L Anion Gap mmol/L BUN (9-20) mg/dL Creatinine (0.66-1.25) mg/dL Est GFR (CKD-EPI)AfAm (>60 ml/min/1.73 sqM) Est GFR (CKD-EPI)NonAf (>60 ml/min/1.73 sqM) Glucose (74-99) mg/dL Calcium (8.4-10.2) mg/dL Total Bilirubin (0.2-1.3) mg/dL AST (17-59) U/L ALT (4-49) U/L Alkaline Phosphatase (38-126) U/L Troponin I <0.012 (0.000-0.034) ng/mL Total Protein (6.3-8.2) g/dL Albumin (3.5-5.0) g/dL Lipase (23-300) U/L Urine Color Urine Appearance (Clear) Urine pH (5.0-8.0) Ur Specific [place] (1.001-1.035) Urine Protein (Negative) Urine Glucose (UA) (Negative) Urine Ketones (Negative) Urine Blood (Negative) Urine Nitrite (Negative) Urine Bilirubin (Negative) Urine Urobilinogen (<2.0) mg/dL Ur Leukocyte Esterase (Negative) Urine RBC (0-5) /hpf Urine WBC (0-5) /hpf Ur Squamous Epith Cells (0-4) /hpf Urine Mucus (None) /hpf - EKG Data EKG Comments: Sinus rhythm with no ST or T-wave changes Ventricular rate 78, VA 180, QRS 90, QTC 453. Disposition Clinical Impression: Ileus, Nausea vomiting and diarrhea Disposition: HOME SELF-CARE Condition: Stable Instructions (If sedation given, give patient instructions): Clear Liquid Diet (ED), Ileus (ED) Additional Instructions: Please follow clear liquid diet. Take prescribed medication as directed. Return to emergency department if symptoms worsen. Prescriptions: Ondansetron Odt [Zofran Odt] 4 mg PO Q8HR PRN #20 tab PRN Reason: Nausea Is patient prescribed a controlled substance at d/c from ED?: No Referrals: [facility],Clinic [Primary Care Provider] - 1-2 days Time of Disposition: 23:32
[2020-07-27] MEDS ORDERED: DICYCLOMINE 10 MG/ML 2 ML AMP IM STA (21:45)
[2020-07-27 21:57] LABS: Basophils # (A) 0.1 k/uL (0-0.2); Basophils % (A) 1 %; Eosinophils # (A) 0.2 k/uL (0-0.7); Eosinophils % (A) 2 %; HCT 48.4 % (39.0-53.0); HGB 16.3 gm/dL (13.0-17.5); Lymphocytes # (A) 2.7 k/uL (1.0-4.8); Lymphocytes % (A) 22 %; MCH 27.7 pg (25.0-35.0); MCHC 33.7 g/dL (31.0-37.0); MCV 82.1 fL (80.0-100.0); Mean Platelet Volume 7.2; Monocytes # (A) 0.6 k/uL (0-1.0); Monocytes % (A) 5 %; Neutrophils # (A) 8.3 k/uL (1.3-7.7); Neutrophils % (A) 69 %; Platelet Count 284 k/uL (150-450); RDW 13.1 % (11.5-15.5)
[2020-07-27 22:10] VITALS: RESP 18
[2020-07-27 22:18] LABS: Albumin 4.4 g/dL (3.5-5.0); Total Bilirubin 0.9 mg/dL (0.2-1.3); Total Protein 7.4 g/dL (6.3-8.2)
[2020-07-27 22:19] LABS: Potassium 4.5 mmol/L (3.5-5.1)
[2020-07-27 22:23] LABS: INR 1.1 (<1.2); Partial Thromboplastin Time 24.7 sec (22.0-30.0); Prothrombin Time 11.1 sec (9.0-12.0)
--- NOTE | 2020-07-27 23:06 | CT ---
EXAMINATION TYPE: CT abdomen pelvis w con DATE OF EXAM: 07/27/2020 COMPARISON: None HISTORY: DIFFUSE ABD PAIN CT DLP: 1947.8 mGycm Automated exposure control for dose reduction was used. CONTRAST: Performed with IV Contrast, patient injected with 100 mL of Isovue 300. Images obtained from the diaphragm to the floor the pelvis with IV contrast. There is some mild subsegmental atelectasis at the lung bases. There is no pleural effusion. Heart si ze is normal. There is no pericardial effusion. Stomach is intact. Liver spleen pancreas gallbladder appear intact. Bile ducts are not dilated. There is no evidence of pancreatic mass. There is no adrenal mass. Kidneys show satisfactory contrast opacification. There is no hydronephrosis. Ureters are not dilated. There is no retroperitoneal abigail opathy. Delayed images show normal renal excretion. Bladder distends smoothly. There is left-sided in guinal hernia that contains fat. Prostate is enlarged and measures 5.6 cm. There is no free fluid in the pelvis. There are colonic diverticula. There is no sign of diverticulitis. There are some mildly distended small bowel loops with air-fluid levels in the mid abdomen. Small bowel measures up to 3 cm . I see no intestinal wall thickening. Appendix is not definitely seen. There is no sign of thickened appendix. Terminal ileum appears normal. The lumbar vertebra have normal alignment. There is no compression fracture. There is mild vacuum dis c phenomenon. The bony pelvis is intact. There are a few small small bowel diverticula in the ileum. IMPRESSION: There is mild large and small bowel diverticulosis without diverticulitis. Distended ileum suggestive of small bowel ileus. No transition point seen.
[2020-07-27 23:14] LABS: Appearance,Urine Clear (Clear); Bilirubin,Urine Negative (Negative); Blood,Urine Negative (Negative); Color,Urine Yellow; Glucose,Urine (UA) Negative (Negative); Ketones,Urine Negative (Negative); Leukocyte Esterase,Urine Negative (Negative); Mucus,Urine Rare /hpf; Nitrite,Urine Negative (Negative); Protein,Urine 1+ (Negative); RBC,Urine 2 /hpf (0-5); Squamous Epithelial Cell,Urine 1 /hpf (0-4); Urobilinogen,Urine <2.0 mg/dL (<2.0); WBC,Urine 2 /hpf (0-5)
[2020-07-27] MEDS ORDERED: MECLIZINE 12.5 MG TAB PO STA (23:30)
[2020-07-28] MEDS ORDERED: ONDANSETRON 4 MG ODT STARTER PACK 2 TAB BTL PO STA (00:05)
[2020-07-28 00:20] VITALS: BP 155/98; PULSE 75; TEMP 97.6
== END 2020-07-28 00:25 | disposition home or self-care (01) ==
LOC: EC 21:16
DX: K56.7 Ileus, unspecified (principal); D72.829 Elevated white blood cell count, unspecified; K57.90 Diverticulosis of intestine, part unspecified, without perforation or abscess without bleeding; J45.909 Unspecified asthma, uncomplicated; K21.9 Gastro-esophageal reflux disease without esophagitis; I10 Essential (primary) hypertension; G47.30 Sleep apnea, unspecified; Z79.51 Long term (current) use of inhaled steroids; Z79.82 Long term (current) use of aspirin; Z79.899 Other long term (current) drug therapy; Z88.5 Allergy status to narcotic agent; Z88.2 Allergy status to sulfonamides; Z99.89 Dependence on other enabling machines and devices; Z90.89 Acquired absence of other organs
CPT/HCPCS: 36415; 93005; 80053; 83690; 84484; 85025; 85610; 85730; 81001; 74177; 99284; 96374; 96375 ×2; 96361 ×2; 96372; J0500; J2405; S0119; C9113; J1170; Q9967

== ENCOUNTER 2021-02-24 18:24 | Emergency (ER) | payer OTHER ==
[2021-02-24 18:50] VITALS: BP 134/91; PULSE 95; RESP 20; TEMP 98.1
[2021-02-24] MEDS ORDERED: SODIUM CHLORIDE 0.9% 50 ML IVPB ONE (20:00)
[2021-02-24] MEDS ORDERED: CASIRIVIMAB (REGN10933) (EUA) 600 MG, IMDEVIMAB (REGN10987) (EUA) 600 MG in SODIUM CHLO... IVPB ONE (20:15)
--- NOTE | 2021-02-24 20:32 | XR ---
EXAMINATION TYPE: XR chest 2V DATE OF EXAM: 02/24/2021 COMPARISON: NONE HISTORY: Short of breath TECHNIQUE: 2 views FINDINGS: Heart and mediastinum are normal. Lungs are clear. Costophrenic angles are clear. There are no hilar masses. Bony thorax is intact. IMPRESSION: Normal chest.
--- NOTE | 2021-02-24 20:46 | ED ---
URI HPI - General Chief Complaint: Upper Respiratory Infection Stated Complaint: BAM,COVID+ Time Seen by Provider: 02/24/21 19:00 Source: patient, RN notes reviewed Mode of arrival: ambulatory Limitations: no limitations - History of Present Illness Initial Comments: Patient is a 60-year-old male that presents to the emergency department complaining of mild upper respiratory tract symptoms for the past 3-4 days. He notes that he tested positive for Covid on 02/22/2021. He did show his positive test results. He was sent by his primary care to get the monoclonal antibody therapy. He notes he is also been vaccinated. Patient declined any shortness of breath difficulty breathing chest pain headache. He was a well-appearing 60-year-old male - Related Data Home Medications Medication Instructions Recorded Confirmed Montelukast [Singulair] 10 mg PO DAILY 07/23/15 02/20/18 Naproxen 500 mg PO Q12HR PRN 07/23/15 02/20/18 Omeprazole [PriLOSEC] 20 mg PO DAILY 07/23/15 02/20/18 Aspirin [Adult Low Dose Aspirin EC] 81 mg PO DAILY 04/19/16 02/20/18 Budesonide-Formot 160-4.5 Mcg 2 puff INHALATION RT-BID 04/19/16 02/20/18 [Symbicort 160-4.5 Mcg Inhaler] Atorvastatin [Lipitor] 40 mg PO HS 06/19/16 02/20/18 Metoprolol Tartrate [Lopressor] 25 mg PO BID 06/19/16 02/20/18 Vardenafil HCl [Levitra] 20 mg PO DAILY PRN 06/19/16 02/20/18 Previous Rx's Medication Instructions Recorded Zolpidem [Ambien] 10 mg PO HS PRN #6 tab 06/19/16 Meclizine [Antivert] 25 mg PO TID #20 tab 06/28/19 Orphenadrine [Norflex] 100 mg PO Q12H #7 tablet.er 03/31/20 Ondansetron Odt [Zofran Odt] 4 mg PO Q8HR PRN #20 tab 07/27/20 Allergies Allergy/AdvReac Type Severity Reaction Status Date / Time codeine Allergy Rash/Hives Verified 02/24/21 18:50 morphine Allergy Rash/Hives Verified 02/24/21 18:50 sulfacetamide Allergy Rash/Hives Verified 02/24/21 18:50 [From Sulfamide] Review of Systems ROS Statement: Those systems with pertinent positive or pertinent negative responses have been documented in the HPI. ROS Other: All systems not noted in ROS Statement are negative. Past Medical History Past Medical History: Asthma, GERD/Reflux, Hypertension, Sleep Apnea/CPAP/BIPAP Additional Past Medical History / Comment(s): seasonal allergies,occas. cough, has cpap, positional apnea. History of Any Multi-Drug Resistant Organisms: None Reported Past Surgical History: Appendectomy Past Anesthesia/Blood Transfusion Reactions: No Reported Reaction Past Psychological History: No Psychological Hx Reported Smoking Status: Never smoker Past Alcohol Use History: Rare Past Drug Use History: None Reported - Past Family History Mother Family Medical History: No Reported History General Exam Limitations: no limitations General appearance: alert, in no apparent distress Head exam: Present: atraumatic, normocephalic, normal inspection Eye exam: Present: normal appearance, PERRL, EOMI. Absent: scleral icterus, conjunctival injection, periorbital swelling Neck exam: Present: normal inspection Respiratory exam: Present: normal lung sounds bilaterally. Absent: respiratory distress, wheezes, rales, rhonchi, stridor Cardiovascular Exam: Present: regular rate, normal rhythm, normal heart sounds. Absent: systolic murmur, diastolic murmur, rubs, gallop, clicks Extremities exam: Present: normal inspection, full ROM, normal capillary refill. Absent: tenderness, pedal edema, joint swelling, calf tenderness Neurological exam: Present: alert, oriented X3 Psychiatric exam: Present: normal affect, normal mood Skin exam: Present: warm, dry, intact, normal color. Absent: rash Course Vital Signs 02/24/21 18:46 Temperature 98.1 F Pulse Rate 95 Respiratory 20 Rate Blood Pressure 134/91 O2 Sat by Pulse 98 Oximetry Medical Decision Making - Medical Decision Making 60-year-old male that presented to emergency department after getting up positive Covid test on 02/22/2021. He was sent by primary care to get monoclonal antibiotic therapy. Chest x-ray ordered. Chest x-ray negative. Monoclonal antibody therapy ordered. Patient was informed of the procedure and potential side effects and increased undergo infusion. Case discussed with Dr. Bautista, patient can discharge home after infusion with follow-up to primary care. Disposition Clinical Impression: COVID Disposition: HOME SELF-CARE Condition: Stable Instructions (If sedation given, give patient instructions): Coronavirus Disease 2019 (COVID-19) Additional Instructions: Please return to the Emergency Department if symptoms worsen or any other franny rns. Follow-up primary care in the next several days. Continue to do conservative management with Tylenol Motrin and oral fluid increase. Is patient prescribed a controlled substance at d/c from ED?: No Referrals: [facility],Clinic [Primary Care Provider] - 1-2 days Time of Disposition: 21:34
== END 2021-02-24 22:25 | disposition home or self-care (01) ==
LOC: EC 18:24
DX: U07.1 COVID-19 (principal); I10 Essential (primary) hypertension; J45.909 Unspecified asthma, uncomplicated; K21.9 Gastro-esophageal reflux disease without esophagitis; Z79.51 Long term (current) use of inhaled steroids; Z88.2 Allergy status to sulfonamides; Z88.5 Allergy status to narcotic agent; Z79.899 Other long term (current) drug therapy
CPT/HCPCS: 71046; 99283; 96365; Q0243

== ENCOUNTER → 2022-02-01 | Outpatient (CLI) | payer OTHER ==
--- NOTE | 2022-02-01 16:33 | CONS ---
CONSULTATION DATE OF SERVICE: 02/01/2022 61-year-old gentleman has been evaluated in [facility] for obstructive sleep apnea- hypopnea syndrome. HISTORY OF PRESENT ILLNESS SLEEP-WAKE EVALUATION: The patient has been diagnosed with obstructive sleep apnea about 10 years ago in another institution. Since that time he is using his CPAP equipment every night for the whole night and cannot sleep without CPAP. Presently, he has dream Station 1. CPAP unit which has been on recall from [employer]. Patient registered for getting a new machine but continued to use his machine because again he cannot sleep without CPAP. His sleep schedule from 11 p.m. to 7 or 9:00 am. No problems with falling asleep. No TV in bedroom. He usually sleeps on the side position. Occasionally, he may snore and he wakes up from sleep more than 6 times usually with episodes of nocturia. No history of hypnagogic hallucinations, sleep paralysis or cataplexy. During the day, sometimes patient feels sleepiness. [place] Sleepiness Scale increased to 10. I checked CPAP unit, which showed that the patient using it every night. Average usage 8.4 hours per night. Pressure is 11 cm of water. Mask fit at 99%, which is perfect. Apnea-hypopnea index although increased to 12.6 and 6% of periodic breathing has been documented by the machine. PAST MEDICAL HISTORY: Positive for hypertension, diabetes mellitus, acid reflux, allergy, headaches. PAST SURGICAL HISTORY: Appendectomy. MEDICATIONS: Loratadine 10 mg once a day, aspirin 81 mg once a day, pantoprazole 40 mg once a day, 10 mg times one, montelukast 10 mg x1, amlodipine 10 mg x1, atorvastatin 80 mg x1, losartan 50 mg x2, metformin 500 mg x2, insulin 40 units once a day. SOCIAL HISTORY: Negative for smoking, alcohol consumption occasional. FAMILY HISTORY: Hypertension, acid reflux, snoring. REVIEW OF SYSTEMS: Awakenings from sleep even while using CPAP equipment. PHYSICAL EXAMINATION: GENERAL: gentleman without distress. BP 133/84, HR 100, RR 16, height 5 feet 9-1/4 inches, weight 268.8 pounds, body mass index 39.3, temperature 97.4 oxygen saturation room air 97%. Oropharynx: Extremely low position of soft palate, Mallampati 4. Neck is extremely wide, neck 21 inches in circumference. Neck: Supple, no JVD. Thyroid is not palpable. LUNGS: Clear to percussion and to auscultation. Good air exchange. No wheezing or rhonchi. HEART: S1, S2 regular. No murmurs, gallops, or rubs. ABDOMEN: Obese. Soft and nontender. Bowel sounds are present. No organomegaly appreciated. EXTREMITIES: No clubbing or cyanosis. PHLEBOTOMY SUPPORT TECH: Awake, alert, and oriented X3. Cranial nerves 2 to 7 intact. There is no fasciculation or atrophy. noted. No focal deficits observed. IMPRESSION: 1. Obstructive sleep apnea-hypopnea syndrome for 10 years. The patient continues to use his CPAP equipment every night for the whole night. Reading from the machine showed increasing apnea-hypopnea index to 12.6. The patient has 6 awakenings from sleep, extremely low position of soft palate, Mallampati 4, wide neck; obstructive sleep apnea-hypopnea syndrome. 2. Obesity; body mass index 39.3. 3. Hypertension. 4. Diabetes mellitus. 5. History of acid reflux. 6. History of allergy. 7. Episodes of headaches. 8. Status post appendectomy. PLAN: 1. I adjusted AutoPAP to the range of the pressure 15 cm of water. 2. Patient should continue to use CPAP equipment every night for the whole night. 3. I will see patient for follow-up visit in 2 months to evaluate clinical response on changing of pressure. If patient will continue to have problems with multiple awakenings from sleep, we may proceed for the PAP titration. 4. Losing weight. 5. No driving if feeling sleepiness. 6. Sleep hygiene with regular time in bed for at least 8 hours. Thank you very much for referring this patient for consultation. Sincerely, Mor Soto MD, PhD, FAASM Diplomat of [place] [employer] Sleep Medicine Board of [place] [employer] [facility] [place] MMODL / IJN: [id number] /
== END ==
LOC: SLEEP 13:15
PROVIDERS: ATTEND Internal Medicine
DX: G47.33 Obstructive sleep apnea (adult) (pediatric) (principal); Z99.89 Dependence on other enabling machines and devices; E66.9 Obesity, unspecified; Z68.39 Body mass index [BMI] 39.0-39.9, adult; I10 Essential (primary) hypertension; E11.9 Type 2 diabetes mellitus without complications; Z87.19 Personal history of other diseases of the digestive system; Z87.09 Personal history of other diseases of the respiratory system; Z90.49 Acquired absence of other specified parts of digestive tract; Z79.4 Long term (current) use of insulin; Z79.84 Long term (current) use of oral hypoglycemic drugs; Z79.899 Other long term (current) drug therapy; Z88.5 Allergy status to narcotic agent; Z88.2 Allergy status to sulfonamides
CPT/HCPCS: 99211

== ENCOUNTER → 2022-05-15 | Outpatient (CLI) | payer OTHER ==
--- NOTE | 2022-05-15 11:55 | CT ---
EXAMINATION TYPE: CT sinus wo con DATE OF EXAM: 05/15/2022 COMPARISON: CT brain March 31, 2020 HISTORY: Chronic cough. Chronic sinusitis. CT DLP: 603.00 mGycm. Automated Exposure Control for Dose Reduction was Utilized. TECHNIQUE: CT scan of the sinuses is performed without contrast, axial images are obtained, coronal r eformatted images are also reviewed. FINDINGS: The paranasal sinuses including the frontal, ethmoid, sphenoid, and maxillary sinuses bila terally are well-aerated without abnormal opacification or suspicious air-fluid levels. The ostiomea abbi complex is patent bilaterally on coronal image 23. Visualized portion of mastoid air cells show no abnormal opacification. The globes are intact bilate rally. Some patchy cerumen deep in the external auditory canals bilaterally is present. Visualized b rain parenchyma is unremarkable. IMPRESSION: The sinuses are clear and the ostiomeatal complex is patent bilaterally.
== END | disposition home or self-care (01) ==
LOC: RADCTMAIN 10:10
PROVIDERS: ATTEND Otolaryngology
DX: R05.3 Chronic cough (principal)
CPT/HCPCS: 70486

== ENCOUNTER 2023-01-12 10:18 | Emergency (ER) | payer OTHER ==
[2023-01-12] MEDS ORDERED: FLUORESCEIN STRIPS 1 MG STRIP RIGHT EYE ONE (11:12)
--- NOTE | 2023-01-12 11:17 | ED ---
General Adult HPI - General Chief complaint: Eye Problems Stated complaint: r eye injury Time Seen by Provider: 01/12/23 10:48 Source: patient, RN notes reviewed Mode of arrival: ambulatory Limitations: no limitations - History of Present Illness Initial comments: 62-year-old male with past medical history significant for hypertension and diabetes presents to the emergency department with a chief complaint of right eye problem. Patient reports high problem that started last night. He is complaining of pain with movement. He reports that his noticed a bulge to his he this morning. He reports blurred vision. Denies injury or trauma. Denies contact lens use. Denies any fevers, purulent discharge, vision loss, headache, flashes or floaters, loss of vision. - Related Data Home Medications Medication Instructions Recorded Confirmed Montelukast [Singulair] 10 mg PO DAILY 07/23/15 02/20/18 Naproxen 500 mg PO Q12HR PRN 07/23/15 02/20/18 Omeprazole [PriLOSEC] 20 mg PO DAILY 07/23/15 02/20/18 Aspirin [Adult Low Dose Aspirin EC] 81 mg PO DAILY 04/19/16 02/20/18 Budesonide-Formot 160-4.5 Mcg 2 puff INHALATION RT-BID 04/19/16 02/20/18 [Symbicort 160-4.5 Mcg Inhaler] Atorvastatin [Lipitor] 40 mg PO HS 06/19/16 02/20/18 Metoprolol Tartrate [Lopressor] 25 mg PO BID 06/19/16 02/20/18 Vardenafil HCl [Levitra] 20 mg PO DAILY PRN 06/19/16 02/20/18 Previous Rx's Medication Instructions Recorded Zolpidem [Ambien] 10 mg PO HS PRN #6 tab 06/19/16 Meclizine [Antivert] 25 mg PO TID #20 tab 06/28/19 Orphenadrine [Norflex] 100 mg PO Q12H #7 tablet.er 03/31/20 Ondansetron Odt [Zofran Odt] 4 mg PO Q8HR PRN #20 tab 07/27/20 Allergies Allergy/AdvReac Type Severity Reaction Status Date / Time codeine Allergy Rash/Hives Verified 01/12/23 10:35 morphine Allergy Rash/Hives Verified 01/12/23 10:35 sulfacetamide Allergy Rash/Hives Verified 01/12/23 10:35 [From Sulfamide] Review of Systems ROS Statement: Those systems with pertinent positive or pertinent negative responses have been documented in the HPI. ROS Other: All systems not noted in ROS Statement are negative. Past Medical History Past Medical History: Asthma, Diabetes Mellitus, GERD/Reflux, Hypertension, Sleep Apnea/CPAP/BIPAP Additional Past Medical History / Comment(s): seasonal allergies,occas. cough, has cpap, positional apnea. History of Any Multi-Drug Resistant Organisms: None Reported Past Surgical History: Appendectomy Past Anesthesia/Blood Transfusion Reactions: No Reported Reaction Past Psychological History: No Psychological Hx Reported Smoking Status: Never smoker Past Alcohol Use History: Rare Past Drug Use History: None Reported - Past Family History Mother Family Medical History: No Reported History General Exam - General Exam Comments Initial Comments: General: Alert, in no acute distress Head: atraumatic normocephalic. Eyes PERRL, EOMI intact, mucous membranes moist Respiratory: Lungs clear to auscultation bilaterally Cardiovascular: Heart rate regular rate and rhythm Abdominal: Soft without guarding or rebound Extremities: Normal inspection with full range of motion and normal capillary refill Neuroogic: alert and oriented 3, CN II-XII intact, able to ambulate with steady gait Skin: warm dry and intact with normal coloral Eye: Visual acuity performed on patient. 20/40 of the right 20/25 of the left Extraocular eye movements are intact. Right eye is mildly injected. No discharge noted. The reflex present in both eyes. Ocular pressures 18 in the left, 15 in the right Limitations: no limitations Course Vital Signs 01/12/23 01/12/23 10:33 12:30 Temperature 98.2 F 98.1 F Pulse Rate 83 77 Respiratory 18 16 Rate Blood Pressure 137/82 129/69 O2 Sat by Pulse 99 99 Oximetry Medical Decision Making - Medical Decision Making Was pt. sent in by a medical professional or institution (HERNANDEZ Adamson, DRAFTER (CAD) ELECTR[employer], urgent care, hospital, or [facility]...) When possible be specific @ -[No] Did you speak to anyone other than the patient for history (EMS, parent, family, police, friend...)? What history was obtained from this source @ -[No] Did you review nursing and triage notes (agree or disagree)? Why? @ -[I reviewed and agree with nursing and triage notes] Were old charts reviewed (outside hosp., previous admission, EMS record, old EKG, old radiological studies, urgent care reports/EKG's, [facility] records)? Report findings @ -[No old charts were reviewed] Differential Diagnosis (chest pain, altered mental status, abdominal pain women, abdominal pain men, vaginal bleeding, weakness, fever, dyspnea, syncope, headache, dizziness, GI bleed, back pain, seizure, CVA, palpatations, mental health, musculoskeletal)? @ -[not applicable] EKG interpreted by me (3pts min.). @ -[As above] X-rays interpreted by me (1pt min.). @ -[None done] CT interpreted by me (1pt min.). @ -[None done] U/S interpreted by me (1pt. min.). @ -[None done] What testing was considered but not performed or refused? (CT, X-rays, U/S, labs)? Why? @ -[None] What meds were considered but not given or refused? Why? @ -[None] Did you discuss the management of the patient with other professionals (professionals i.e. , PA, DRAFTER (CAD) ELECTRICAL, lab, RT, psych nurse, social sciences lecturer, hog slaughterer, teacher, police or patrol park officer, trimming caser)? Give summary @ -East discussed with Dr. Mcclain who recommends the patient follow up with his office outpatient. They report they have an appointment at 3 PM for the patient. Was smoking cessation discussed for >3mins.? @ -[No] Was critical care preformed (if so, how long)? @ -[No] Were there social determinants of health that impacted care today? How? (Homelessness, low income, unemployed, alcoholism, drug addiction, transportation, low edu. Level, literacy, decrease access to med. care, care home, rehab)? @ -[No] Was there de-escalation of care discussed even if they declined (Discuss DNR or withdrawal of care, Hospice)? DNR status @ -[No] What co-morbidities impacted this encounter? (DM, HTN, Smoking, COPD, CAD, Cancer, CVA, ARF, Chemo, Hep., AIDS, mental health diagnosis, sleep apnea, morbid obesity)? @ -[None] Was patient admitted / discharged? Hospital course, mention meds given and route, prescriptions, significant lab abnormalities, going to OR and other pertinent info. @ -Discharged. This is a 62-year-old male who presents the emergency department with eye problem. Patient had a thorough history and physical exam performed in the ED. Physical exam essentially unremarkable. Heart rate regular rate and rhythm, lungs are to auscultation bilaterally, abdomen soft non-tender. Right eye with ocular movements intact. Pupils are equal and reactive. Visual acuity right eye is 20/40. I pressure is 15. With Dr. Ruiz, truck mechanic on-call who recommends the patient be discharged and to have him follow-up with his office this afternoon. Patient is agreeable to the plan. And able tingling with a steady gait. . Return precautions were discussed at length. Patient discharged in stable condition. Case discussed with Dr. Cordero, [facility] who agrees with plan of care Undiagnosed new problem with uncertain prognosis? @ -[No] Drug Therapy requiring intensive monitoring for toxicity (Heparin, Nitro, Insulin, Cardizem)? @ -[No] Were any procedures done? @ -[No] Diagnosis/symptom? @ -Right Eye problem Acute, or Chronic, or Acute on Chronic? @ Acute Uncomplicated (without systemic symptoms) or Complicated (systemic symptoms)? @ -uncomplicated Side effects of treatment? @ -[No] Exacerbation, Progression, or Severe Exacerbation? @ -[No] Poses a threat to life or bodily function? How? (Chest pain, [place], [place], pneumonia, PE, COPD, DKA, ARF, appy, cholecystitis, CVA, Diverticulitis, Homicidal, Suicidal, threat to staff... and all critical care pts) @ -low likelihood Disposition Clinical Impression: Mass of right eye Disposition: HOME SELF-CARE Condition: Stable Additional Instructions: Please head to Dr. Levine in [place] after discharge Please return to the nearest emergency department with sudden vision loss, blurred vision, headache, Is patient prescribed a controlled substance at d/c from ED?: No Referrals: [facility],Clinic [Primary Care Provider] - 1-2 days Luis Ruiz MD [STAFF PHYSICIAN] - 1-2 days Time of Disposition: 12:12
[2023-01-12] MEDS ORDERED: ONDANSETRON 4 MG ODT STARTER PACK 2 TAB BTL PO STA (12:24)
[2023-01-12 12:32] VITALS: BP 129/69; PULSE 77; RESP 16; TEMP 98.1
== END 2023-01-12 12:32 | disposition home or self-care (01) ==
LOC: EC 10:18
DX: H53.8 Other visual disturbances (principal); I10 Essential (primary) hypertension; E11.9 Type 2 diabetes mellitus without complications; G47.30 Sleep apnea, unspecified; J45.909 Unspecified asthma, uncomplicated; K21.9 Gastro-esophageal reflux disease without esophagitis; Z79.51 Long term (current) use of inhaled steroids; Z79.82 Long term (current) use of aspirin; Z79.899 Other long term (current) drug therapy; Z88.2 Allergy status to sulfonamides; Z88.5 Allergy status to narcotic agent
CPT/HCPCS: 99283; S0119

== ENCOUNTER 2023-04-04 01:52 | Inpatient (IN) | payer OTHER ==
[2023-04-04] MEDS ORDERED: KETOROLAC 15 MG/ML 1 ML VIAL IVP STA ×2 (02:26→04:21)
--- NOTE | 2023-04-04 02:31 | ED ---
General Adult HPI - General Chief complaint: Back Pain/Injury Stated complaint: BACK PAIN Time Seen by Provider: 04/04/23 02:20 Source: patient Mode of arrival: ambulatory Limitations: no limitations - History of Present Illness Initial comments: Dictation was produced using [employer] dictation software. please excuse any grammatical, word or spelling errors. Chief Complaint: 62-year-old male presents emergency Department with colicky right back pain History of Present Illness: Patient 62-year-old male for the last 6 hours he's been having colicky right-sided flank pain. Patient states that he was [place] when his symptoms started. He has no history of kidney stones. The last hour he is developed nausea and vomiting. Patient denies any radiation to the groin. No abdominal pain. The ROS documented in this emergency department record has been reviewed and confirmed by me. Those systems with pertinent positive or negative responses have been documented in the HPI. All other systems are other negative and/or noncontributory. - Related Data Home Medications Medication Instructions Recorded Confirmed Montelukast [Singulair] 10 mg PO DAILY 07/23/15 02/20/18 Naproxen 500 mg PO Q12HR PRN 07/23/15 02/20/18 Omeprazole [PriLOSEC] 20 mg PO DAILY 07/23/15 02/20/18 Aspirin [Adult Low Dose Aspirin EC] 81 mg PO DAILY 04/19/16 02/20/18 Budesonide-Formot 160-4.5 Mcg 2 puff INHALATION RT-BID 04/19/16 02/20/18 [Symbicort 160-4.5 Mcg Inhaler] Atorvastatin [Lipitor] 40 mg PO HS 06/19/16 02/20/18 Metoprolol Tartrate [Lopressor] 25 mg PO BID 06/19/16 02/20/18 Vardenafil HCl [Levitra] 20 mg PO DAILY PRN 06/19/16 02/20/18 Previous Rx's Medication Instructions Recorded Zolpidem [Ambien] 10 mg PO HS PRN #6 tab 06/19/16 Meclizine [Antivert] 25 mg PO TID #20 tab 06/28/19 Orphenadrine [Norflex] 100 mg PO Q12H #7 tablet.er 03/31/20 Ondansetron Odt [Zofran Odt] 4 mg PO Q8HR PRN #20 tab 07/27/20 Allergies Allergy/AdvReac Type Severity Reaction Status Date / Time codeine Allergy Rash/Hives Verified 04/04/23 02:08 morphine Allergy Rash/Hives Verified 04/04/23 02:08 sulfacetamide Allergy Rash/Hives Verified 04/04/23 02:08 [From Sulfamide] Review of Systems ROS Statement: Those systems with pertinent positive or pertinent negative responses have been documented in the HPI. ROS Other: All systems not noted in ROS Statement are negative. Past Medical History Past Medical History: Asthma, Diabetes Mellitus, GERD/Reflux, Hypertension, Sleep Apnea/CPAP/BIPAP Additional Past Medical History / Comment(s): seasonal allergies,occas. cough, has cpap, positional apnea. History of Any Multi-Drug Resistant Organisms: None Reported Past Surgical History: Appendectomy Past Anesthesia/Blood Transfusion Reactions: No Reported Reaction Past Psychological History: No Psychological Hx Reported Smoking Status: Never smoker Past Alcohol Use History: Rare Past Drug Use History: None Reported - Past Family History Mother Family Medical History: No Reported History General Exam - General Exam Comments Initial Comments: PHYSICAL EXAM: General Impression: Alert and oriented x3, no acute distress secondary to pain HEENT: Normocephalic atraumatic, extra-ocular movements intact, pupils equal and reactive to light bilaterally, mucous membranes moist. Cardiovascular: Heart regular rate and rhythm Chest: Able to complete full sentences, no retractions, no tachypnea Abdomen: abdomen soft, non-tender, non-distended, no organomegaly Musculoskeletal: Pulses present and equal in all extremities, no peripheral edema Motor: no focal deficits noted Neurological: CN II-XII grossly intact, no focal motor or sensory deficits noted Skin: Intact with no visualized rashes Psych: Normal affect and mood Limitations: no limitations Course Vital Signs 04/04/23 04/04/23 04/04/23 02:06 02:13 06:05 Temperature 97.7 F 97.0 F L Pulse Rate 92 76 64 Respiratory 20 20 18 Rate Blood Pressure 172/102 152/87 138/68 O2 Sat by Pulse 97 97 96 Oximetry Medical Decision Making - Medical Decision Making Was pt. sent in by a medical professional or institution (, PA, [employer], urgent care, hospital, or fci...) When possible be specific @ -No Did you speak to anyone other than the patient for history (EMS, parent, family, police, friend...)? What history was obtained from this source @ -No Did you review nursing and triage notes (agree or disagree)? Why? @ -I reviewed and agree with nursing and triage notes Were old charts reviewed (outside hosp., previous admission, EMS record, old EKG, old radiological studies, urgent care reports/EKG's, fci records)? Report findings @ -No old charts were reviewed Differential Diagnosis (chest pain, altered mental status, abdominal pain women, abdominal pain men, vaginal bleeding, musculoskeletal, weakness, fever, dyspnea, syncope, headache, dizziness, GI bleed, back pain, seizure, CVA, palpatations, mental health)? @ -Differential Abdominal Pain Men: Appendicitis, cholecystitis, diverticulosis, ischemic bowel, pancreatitis, hepatitis, UTI, gastroenteritis, AAA, incarcerated hernia, bowel obstruction, constipation, inflammatory bowel, hepatitis, peptic ulcer disease, splenic infarction, perforated viscus, testicular torsion, this is not meant to be an all-inclusive list EKG interpreted by me (3pts min.). @ -None done X-rays interpreted by me (1pt min.). @ -None done CT interpreted by me (1pt min.). @ - right-sided nephrolithiasis with obstructing stone in distal right ureter U/S interpreted by me (1pt. min.). @ -None done What testing was considered but not performed or refused? (CT, X-rays, U/S, labs)? Why? @ -None What meds were considered but not given or refused? Why? @ -None Did you discuss the management of the patient with other professionals (professionals i.e. , PA, [employer], lab, RT, psych nurse, psychotherapist social worker, grounds/maintenance specialist, teacher, asset protection officer, case briefer)? Give summary @ -Case discussed with on-call urology, Dr. Quintero for admission Was smoking cessation discussed for >3mins.? @ -No Was critical care preformed (if so, how long)? @ -No Were there social determinants of health that impacted care today? How? (Homelessness, low income, unemployed, alcoholism, drug addiction, transportation, low edu. Level, literacy, decrease access to med. care, prison, rehab)? @ -No Was there de-escalation of care discussed even if they declined (Discuss DNR or withdrawal of care, Hospice)? DNR status @ -No What co-morbidities impacted this encounter? (DM, HTN, Smoking, COPD, CAD, Cancer, CVA, ARF, Chemo, Hep., AIDS, mental health diagnosis, sleep apnea, morbid obesity)? @ -None Was patient admitted / discharged? Hospital course, mention meds given and route, prescriptions, significant lab abnormalities, going to OR and other pertinent info. @ -62-year-old male presents emergency Department with right-sided flank pain as upon arrival are within acceptable limits. Laboratory evaluation shows mild stress-induced leukocytosis. Slightly elevated renal markers. Urinalysis shows red blood cells of 97. No signs of urinary tract infection. CT shows obstructing nephrolithiasis with 3 mm stone in the distal ureter. Patient provided bedside at 7:55 AM after having had fluids and analgesics. Symptoms are still severe. Clinical presentation consistent with intractable kidney stone pain. Case discussed Dr. Quintero for admission. Undiagnosed new problem with uncertain prognosis? @ -No Drug Therapy requiring intensive monitoring for toxicity (Heparin, Nitro, Insulin, Cardizem)? @ -No Were any procedures done? @ -No Diagnosis/symptom? Acute, or Chronic, or Acute on Chronic? Uncomplicated (without systemic symptoms) or Complicated (systemic symptoms)? @ -1. Obstructing nephrolithiasis, complicated by intractable pain Side effects of treatment? @ -No Exacerbation, Progression, or Severe Exacerbation? @ -No Poses a threat to life or bodily function? How? (Chest pain, [place], [place], pneumonia, PE, COPD, DKA, ARF, appy, cholecystitis, CVA, Diverticulitis, Homicidal, Suicidal, threat to staff... and all critical care pts) @ -No - Lab Data Result diagrams: 04/04/23 02:44 04/04/23 02:44 Lab Results 04/04/23 04/04/23 04/04/23 Range/Units 02:44 02:44 02:44 WBC 11.0 H (3.8-10.6) k/uL RBC 4.36 (4.30-5.90) m/uL Hgb 12.8 L (13.0-17.5) gm/dL Hct 37.7 L (39.0-53.0) % MCV 86.5 (80.0-100.0) fL MCH 29.3 (25.0-35.0) pg MCHC 33.9 (31.0-37.0) g/dL RDW 13.3 (11.5-15.5) % Plt Count 248 (150-450) k/uL MPV 7.7 Neutrophils % 85 % Lymphocytes % 9 % Monocytes % 5 % Eosinophils % 0 % Basophils % 0 % Neutrophils # 9.4 H (1.3-7.7) k/uL Lymphocytes # 1.0 (1.0-4.8) k/uL Monocytes # 0.5 (0-1.0) k/uL Eosinophils # 0.0 (0-0.7) k/uL Basophils # 0.0 (0-0.2) k/uL Sodium 137 (137-145) mmol/L Potassium 4.3 (3.5-5.1) mmol/L Chloride 106 (98-107) mmol/L Carbon Dioxide 22 (22-30) mmol/L Anion Gap 9 mmol/L BUN 40 H (9-20) mg/dL Creatinine 1.75 H (0.66-1.25) mg/dL Est GFR (CKD-EPI)AfAm 47 (>60 ml/min/1.73 sqM) Est GFR (CKD-EPI)NonAf 40 (>60 ml/min/1.73 sqM) Glucose 222 H (74-99) mg/dL Calcium 8.6 (8.4-10.2) mg/dL Urine Color Yellow Urine Appearance Cloudy (Clear) Urine pH 5.0 (5.0-8.0) Ur Specific [place] 1.026 (1.001-1.035) Urine Protein Negative (Negative) Urine Glucose (UA) 1+ H (Negative) Urine Ketones Negative (Negative) Urine Blood Moderate H (Negative) Urine Nitrite Negative (Negative) Urine Bilirubin Negative (Negative) Urine Urobilinogen <2.0 (<2.0) mg/dL Ur Leukocyte Esterase Negative (Negative) Urine RBC 97 H (0-5) /hpf Urine WBC 1 (0-5) /hpf Ur Squamous Epith Cells 1 (0-4) /hpf Uric Acid Crystals Moderate H (None) /hpf Hyaline Casts 8 H (0-2) /lpf Urine Mucus Rare H (None) /hpf Disposition Clinical Impression: Kidney stone Disposition: ADMITTED IP TO THIS HOSP Condition: Fair Referrals: [facility],Clinic [Primary Care Provider] - 1-2 days Decision Time: 07:55
[2023-04-04 03:02] LABS: African American GFR (CKD) 47 (>60 ml/min/1.73 sqM); Anion Gap 9 mmol/L; Blood Urea Nitrogen 40 mg/dL (9-20); Calcium 8.6 mg/dL (8.4-10.2); Carbon Dioxide 22 mmol/L (22-30); Chloride 106 mmol/L (98-107); Glucose 222 mg/dL (74-99); Non-African American GFR(CKD) 40 (>60 ml/min/1.73 sqM); Potassium 4.3 mmol/L (3.5-5.1); Sodium 137 mmol/L (137-145)
[2023-04-04 03:08] LABS: Basophils % (A) 0 %; Eosinophils % (A) 0 %; HCT 37.7 % (39.0-53.0); HGB 12.8 gm/dL (13.0-17.5); Lymphocytes % (A) 9 %; MCH 29.3 pg (25.0-35.0); MCHC 33.9 g/dL (31.0-37.0); MCV 86.5 fL (80.0-100.0); Mean Platelet Volume 7.7; Monocytes # (A) 0.5 k/uL (0-1.0); Monocytes % (A) 5 %; Neutrophils # (A) 9.4 k/uL (1.3-7.7); Neutrophils % (A) 85 %; Platelet Count 248 k/uL (150-450); RBC 4.36 m/uL (4.30-5.90); RDW 13.3 % (11.5-15.5)
[2023-04-04 03:44] LABS: Appearance,Urine Cloudy (Clear); Bilirubin,Urine Negative (Negative); Blood,Urine Moderate (Negative); Color,Urine Yellow; Glucose,Urine (UA) 1+ (Negative); Hyaline Casts,Urine 8 /lpf (0-2); Ketones,Urine Negative (Negative); Leukocyte Esterase,Urine Negative (Negative); Mucus,Urine Rare /hpf; Nitrite,Urine Negative (Negative); Protein,Urine Negative (Negative); RBC,Urine 97 /hpf (0-5); Specific Gravity,Urine 1.026 (1.001-1.035); Squamous Epithelial Cell,Urine 1 /hpf (0-4); Uric Acid Crystals,Urine Moderate /hpf; Urobilinogen,Urine <2.0 mg/dL (<2.0); WBC,Urine 1 /hpf (0-5)
--- NOTE | 2023-04-04 07:42 | CT ---
EXAMINATION TYPE: CT abdomen pelvis wo con DATE OF EXAM: 04/04/2023 COMPARISON: 07/27/2020 INDICATION: Abdominal pain right-sided kidney stone DLP: 1472 mGycm, Automated exposure control for dose reduction was used. CONTRAST: 0 mL of Isovue 300. Study performed without Oral Contrast TECHNIQUE: Axial images were obtained from above the diaphragm to the pubic rami in the axial plane a t 5 mm thick sections. Reconstructed images are reviewed on the computer in the coronal plane. FINDINGS: Limited CT sections are obtained the lung bases. The lung bases are clear. Minimal pericardial effu vidal may be present. CT ABDOMEN: Liver: Normal Spleen: Normal Pancreas: Normal Adrenal glands: The adrenal glands are normal. Gallbladder: Normal Kidneys: No masses are evident. No cysts are present. There is a 0.3 cm calcification in the mid rig ht hemipelvis which appears to be within the right ureter. There is mild right hydroureter some periu reteral inflammatory change may be present. Minimal prominence of the right renal collecting system i s present. Aorta: Normal Inferior vena cava: Normal. CT PELVIS: Fat-containing left inguinal hernia may be present. No loops of bowel are involved. Loops of bowel within the abdomen and pelvis are normal. There are loops of bowel which are incom pletely distended or lack oral contrast limiting their evaluation. Appendix: Not identified. No dilated tubular structure or inflammatory changes are evident. Urinary bladder: Small right urinary bladder diverticulum may be present. Genitourinary structures: Prostate is prominent. Osseous structures: No suspicious lytic or sclerotic lesions. IMPRESSIONS: 1. 0.3 cm partially obstructing mid right hemipelvis ureteral stone. Mild right hydroureter and mini mal prominence of the right renal collecting system is present.
[2023-04-04] MEDS ORDERED: MORPHINE SULFATE 4 MG/ML SYRINGE IV STA (07:48)
[2023-04-04] MEDS ORDERED: SODIUM CHLORIDE 0.9% 1,000 ML IV STA ×2 (07:48)
[2023-04-04] MEDS ORDERED: ONDANSETRON 4 MG/2 ML VIAL IVP STA ×2 (07:48→08:33)
[2023-04-04] MEDS ORDERED: NALOXONE 0.4 MG/ML 1 ML VIAL IV PRN (07:50)
[2023-04-04] MEDS ORDERED: ACETAMINOPHEN IV (For NPO) 1,000 MG in EMPTY BAG 1 BAG IVPB STA (08:33)
--- NOTE | 2023-04-04 10:05 | P.GSHP ---
History of Present Illness H&P Date: 04/04/23 Chief Complaint: Right renal colic The patient is a 62-year-old white male with no prior history of urolithiasis. Yesterday evening, he experienced acute onset of right flank pain associated with nausea and vomiting. His symptoms have been intractable. CT scan shows moderate right hydronephrosis due to a 3 mm right distal ureteral calculus. - Constitutional Constitutional: Denies chills, Denies fever - Gastrointestinal Gastrointestinal: Reports nausea, Reports vomiting - Genitourinary (Male) Genitourinary: Reports flank pain, Reports kidney stones, Denies dysuria, Denies hematuria Past Medical History Past Medical History: Asthma, Diabetes Mellitus, GERD/Reflux, Hypertension, Sleep Apnea/CPAP/BIPAP Additional Past Medical History / Comment(s): seasonal allergies,occas. cough, has cpap, positional apnea. History of Any Multi-Drug Resistant Organisms: None Reported Past Surgical History: Appendectomy Past Anesthesia/Blood Transfusion Reactions: No Reported Reaction Past Psychological History: No Psychological Hx Reported Smoking Status: Never smoker Past Alcohol Use History: Rare Past Drug Use History: None Reported - Past Family History Mother Family Medical History: No Reported History Medications and Allergies Home Medications Medication Instructions Recorded Confirmed Type Montelukast [Singulair] 10 mg PO DAILY 07/23/15 02/20/18 History Naproxen 500 mg PO Q12HR PRN 07/23/15 02/20/18 History Omeprazole [PriLOSEC] 20 mg PO DAILY 07/23/15 02/20/18 History Aspirin [Adult Low Dose Aspirin EC] 81 mg PO DAILY 04/19/16 02/20/18 History Budesonide-Formot 160-4.5 Mcg 2 puff INHALATION RT-BID 04/19/16 02/20/18 History [Symbicort 160-4.5 Mcg Inhaler] Atorvastatin [Lipitor] 40 mg PO HS 06/19/16 02/20/18 History Metoprolol Tartrate [Lopressor] 25 mg PO BID 06/19/16 02/20/18 History Vardenafil HCl [Levitra] 20 mg PO DAILY PRN 06/19/16 02/20/18 History Zolpidem [Ambien] 10 mg PO HS PRN #6 tab 06/19/16 02/20/18 Rx Meclizine [Antivert] 25 mg PO TID #20 tab 06/28/19 Rx Orphenadrine [Norflex] 100 mg PO Q12H #7 tablet.er 03/31/20 Rx Ondansetron Odt [Zofran Odt] 4 mg PO Q8HR PRN #20 tab 07/27/20 Rx Allergies Allergy/AdvReac Type Severity Reaction Status Date / Time codeine Allergy Rash/Hives Verified 04/04/23 02:08 morphine Allergy Rash/Hives Verified 04/04/23 02:08 sulfacetamide Allergy Rash/Hives Verified 04/04/23 02:08 [From Sulfamide] Surgical - Exam Vital Signs Temp Pulse Resp BP Pulse Ox 97.7 F 92 20 172/102 97 04/04/23 02:06 04/04/23 02:06 04/04/23 02:06 04/04/23 02:06 04/04/23 02:06 - General well developed, well nourished, severe pain - Neck no masses, trachea midline - Respiratory normal respiratory effort - Abdomen Soft, non-tender, non-distended, no mass. No left CVA tenderness. Moderate right CVA tenderness. - Psychiatric oriented to time, oriented to person, oriented to place, speech is normal, memory intact Results - Labs 04/04/23 02:44 04/04/23 02:44 Abnormal Lab Results - Last 24 Hours (Table) 04/04/23 04/04/23 04/04/23 Range/Units 02:44 02:44 02:44 WBC 11.0 H (3.8-10.6) k/uL Hgb 12.8 L (13.0-17.5) gm/dL Hct 37.7 L (39.0-53.0) % Neutrophils # 9.4 H (1.3-7.7) k/uL BUN 40 H (9-20) mg/dL Creatinine 1.75 H (0.66-1.25) mg/dL Glucose 222 H (74-99) mg/dL Urine Glucose (UA) 1+ H (Negative) Urine Blood Moderate H (Negative) Urine RBC 97 H (0-5) /hpf Uric Acid Crystals Moderate H (None) /hpf Hyaline Casts 8 H (0-2) /lpf Urine Mucus Rare H (None) /hpf Diabetes panel 04/04/23 Range/Units 02:44 Sodium 137 (137-145) mmol/L Potassium 4.3 (3.5-5.1) mmol/L Chloride 106 (98-107) mmol/L Carbon Dioxide 22 (22-30) mmol/L BUN 40 H (9-20) mg/dL Creatinine 1.75 H (0.66-1.25) mg/dL Glucose 222 H (74-99) mg/dL Calcium 8.6 (8.4-10.2) mg/dL Calcium panel 04/04/23 Range/Units 02:44 Calcium 8.6 (8.4-10.2) mg/dL Pituitary panel 04/04/23 Range/Units 02:44 Sodium 137 (137-145) mmol/L Potassium 4.3 (3.5-5.1) mmol/L Chloride 106 (98-107) mmol/L Carbon Dioxide 22 (22-30) mmol/L BUN 40 H (9-20) mg/dL Creatinine 1.75 H (0.66-1.25) mg/dL Glucose 222 H (74-99) mg/dL Calcium 8.6 (8.4-10.2) mg/dL Adrenal panel 04/04/23 Range/Units 02:44 Sodium 137 (137-145) mmol/L Potassium 4.3 (3.5-5.1) mmol/L Chloride 106 (98-107) mmol/L Carbon Dioxide 22 (22-30) mmol/L BUN 40 H (9-20) mg/dL Creatinine 1.75 H (0.66-1.25) mg/dL Glucose 222 H (74-99) mg/dL Calcium 8.6 (8.4-10.2) mg/dL - Imaging CT scan - abdomen: report reviewed, image reviewed Assessment and Plan (1) Calculus of ureter Current Visit: Yes Status: Acute Code(s): N20.1 - CALCULUS OF URETER SNOMED Code(s): 78071821 (2) Hydronephrosis with renal and ureteral calculous obstruction Current Visit: Yes Status: Acute Code(s): N13.2 - HYDRONEPHROSIS WITH RENAL AND URETERAL CALCULOUS OBSTRUCTION SNOMED Code(s): 409394858 Plan: The patient is admitted for parenteral analgesics, antibiotics, and IV hydration. He was advised that the calculus has a greater than 75% chance of passing. However, his pain is severe and intractable, and he thus desires intervention. I have advised him to undergo cystoscopy with right ureteral stent insertion, hopefully later today, to relieve ureteral obstruction. He would then require a secondary procedure consisting of cystoscopy, right ureteral stent removal, right ureteroscopy with laser lithotripsy and/or stone basketing in 2-3 weeks. He was made aware of potential risks, which include anesthesia, ureteral injury, and inability to successfully place a stent. He wishes to proceed with this. Time with Patient: Greater than 30
[2023-04-04] MEDS: HYDROmorphone 0.5 MG/0.5 ML SYRINGE IVP PRN ×2 (10:21→18:26)
[2023-04-04 12:49] LABS: Glucose,Whole Blood 139 mg/dL (70-110)
[2023-04-04] MEDS ORDERED: SODIUM CHLORIDE 0.9% 1,000 ML IV ONE (14:57)
[2023-04-04 15:03] LABS: Glucose,Whole Blood 149 mg/dL (70-110)
[2023-04-04] MEDS ORDERED: MIDAZOLAM 2 MG/2 ML VIAL ONE (16:05)
[2023-04-04] MEDS ORDERED: fentaNYL (PF) 50 MCG/ML 2 ML AMP ONE (16:05)
[2023-04-04] MEDS ORDERED: SUCCINYLCHOLINE CHLORIDE 200 MG/10 ML VIAL IV ONE (16:05)
[2023-04-04] MEDS ORDERED: PROPOFOL 10 MG/ML 20 ML VIAL IV ONE (16:05)
[2023-04-04] MEDS ORDERED: LIDOCAINE 4% LTA KIT (4 ML) TOPICAL ONE (16:05)
[2023-04-04] MEDS ORDERED: LIDOCAINE 2% INJ 20 MG/ML (2 ML VIAL) ONE (16:05)
[2023-04-04] MEDS ORDERED: IOPAMIDOL-370 100ML BTL MISCELLANE ONE (16:55)
[2023-04-04] MEDS ORDERED: LACTATED RINGERS 1,000 ML IV ONE (17:10)
--- NOTE | 2023-04-04 17:32 | P.OP ---
Date of Procedure: 04/04/23 Preoperative Diagnosis: Right ureteral calculus Postoperative Diagnosis: Same Procedure(s) Performed: Cystoscopy, right ureteroscopy, right ureteral stent insertion Anesthesia: MATTEOA Surgeon: Joseph Dave Estimated Blood Loss (ml): 10 IV fluids (ml): 700 Pathology: other (Right ureteral calculus, sent for chemical analysis) Condition: stable Disposition: PACU Indications for Procedure: The patient is a 62-year-old white male with no prior history of urolithiasis. Yesterday evening, he experienced acute onset of right flank pain associated with nausea and vomiting. His symptoms have been intractable. CT scan shows moderate right hydronephrosis due to a 3 mm right distal ureteral calculus, and he desires ureteroscopic removal of the calculus. Operative Findings: Right distal ureteral calculus at ureterovesical junction, successfully removed. Description of Procedure: The patient was taken to the operating room and placed in the dorsolithotomy position, with legs supported in Mk stirrups. The external genitalia was prepped and draped sterilely. The 30 lens was used to introduce the 22-Khmer Storz cystoscopic sheath through the urethra and into the bladder under direct vision. The prostatic urethra showed evidence of significant lateral lobe enlargement along with a small median lobe. The bladder was examined in its entirety. No tumors were seen. The left ureteral orifice appeared normal. A calculus was impacted at the right ureteral orifice. The cystoscope was removed, and the A[facility]I semirigid ureteroscope was advanced into the bladder under direct vision. Some oozing was noted from the vesicle neck, making identification of the right ureteral orifice difficult. Ultimately, the ureteral orifice was identified and a calculus was no longer seen at the orifice. The ureteral orifice was cannulated, and the ureteroscope was slowly advanced. However, the caliber of the ureter was narrowed and the ureteroscope could not be advanced beyond this point. Therefore, a 0.035 inch Glidewire was passed through the ureteroscope and up to the right renal pelvis. The ureteroscope was removed, and a 15-Khmer, 4 cm balloon dilating catheter was passed over the wire and used to dilate the distal ureter. Once this was completed, ureteroscopy was repeated and it was possible to advance the ureteroscope up to the right ureteral pelvic junction. No calculi were seen within the ureter. As the ureteroscope was withdrawn, the Glidewire was passed through the ureteroscope and up to the right renal pelvis. Pullout ureteroscopy showed no evidence of ureteral trauma. The Glidewire was backloaded into the cystoscope, which was passed into the bladder. A 26 cm, 4.8-Khmer double-J ureteral stent was placed over the wire. Proper stent positioning was verified fluoroscopically and endoscopically. The bladder was emptied, and the calculus was retrieved. It was sent for chemical analysis. The cystoscope was then removed, and the string attached to the stent was secured to the patient's penis using a Tegaderm dressing. The patient tolerated the procedure well and was taken to the recovery room in stable condition.
--- NOTE | 2023-04-04 17:54 | FL ---
Intraoperative/procedural fluoroscopic services were provided for cystoscopy with right ureteral sten t insertion. Total fluoroscopy time is 18.7 seconds with a total of 1 submitted image to PACS. Total DAP 3.2329 Gycm2. Please see the operative note for further details.
[2023-04-04] MEDS: ONDANSETRON 4 MG/2 ML VIAL IVP PRN (18:16)
[2023-04-04] MEDS ORDERED: KETOROLAC 15 MG/ML 1 ML VIAL IVP PRN (18:38)
[2023-04-04] MEDS: hydrALAZINE HCL 25 MG TAB PO SCH (20:22)
[2023-04-04] MEDS: LOSARTAN 50 MG TAB PO SCH (20:22)
[2023-04-04] MEDS: metFORMIN 500 MG TAB PO SCH (20:22)
[2023-04-04] MEDS: PANTOPRAZOLE 40 MG TABLET PO SCH (20:22)
[2023-04-04] MEDS: NAPROXEN 250 MG TAB PO SCH (20:22)
[2023-04-04] MEDS ORDERED: INSULIN DETEMIR (LEVEMIR) 100 UNIT/ML SYR SQ SCH (21:00)
[2023-04-04] MEDS ORDERED: ATORVASTATIN 80 MG TAB PO SCH (21:00)
[2023-04-04 22:06] VITALS: RESP 18
[2023-04-05] MEDS: HYDROmorphone 0.5 MG/0.5 ML SYRINGE IVP PRN (04:52)
[2023-04-05] MEDS: ONDANSETRON 4 MG/2 ML VIAL IVP PRN (07:26)
[2023-04-05 07:33] VITALS: BP 143/79; PULSE 59; TEMP 97.8
--- NOTE | 2023-04-05 08:28 | P.DS ---
Providers Date of admission: 04/04/23 07:51 Expected date of discharge: 04/05/23 Attending physician: Joseph Dave Primary care physician: [facility] Clinic - Discharge Diagnosis(es) (1) Calculus of ureter Current Visit: Yes Status: Acute (2) Hydronephrosis with renal and ureteral calculous obstruction Current Visit: Yes Status: Acute Hospital Course: The patient was admitted and treated with IV hydration, parenteral analgesics, and parenteral antibiotics. He desired ureteroscopic removal of the calculus. Cystoscopy revealed a calculus impacted at the right ureteral orifice, which ultimately passed into the bladder. Right ureteroscopy was performed to confirm the absence of any additional ureteral calculi, and a ureteral stent was placed. The patient experienced pain and nausea following the procedure, which was much improved the morning of discharge, though he did report mild nausea at that time. Urine was blood-tinged. He was afebrile with stable vital signs. Procedures: Cystoscopy, right ureteroscopy, right ureteral stent insertion on 04/04/2023. Patient Condition at Discharge: Good Plan - Discharge Summary New Discharge Prescriptions: New HYDROcodone/APAP 5-325MG [Gormania 5-325] 1 - 2 tab PO Q4HR PRN #6 tab PRN Reason: Severe Pain (Scale 7 To 10) Ketorolac [Toradol] 10 mg PO Q6HR PRN #6 tab PRN Reason: Mild To Moderate Pain (1 - 6) Ondansetron [Zofran] 4 mg PO Q6HR PRN #10 tab PRN Reason: Nausea And Vomiting No Action Omeprazole [PriLOSEC] 20 mg PO BID Naproxen 500 mg PO BID Aspirin [Adult Low Dose Aspirin EC] 81 mg PO DAILY metFORMIN HCL [Glucophage] 500 mg PO BID Insulin Glargine,Hum.rec.anlog [Insulin Glargine Solostar] 40 units SQ HS Empagliflozin [Jardiance] 10 mg PO DAILY Atorvastatin Calcium [Lipitor] 80 mg PO HS Losartan [Cozaar] 50 mg PO BID Loratadine [Claritin] 10 mg PO DAILY hydrALAZINE HCL 25 mg PO TID amLODIPine [Norvasc] 10 mg PO DAILY Tamsulosin HCl [Flomax] 0.4 mg PO DAILY Discharge Medication List Naproxen 500 mg PO BID 07/23/15 [History] Omeprazole [PriLOSEC] 20 mg PO BID 07/23/15 [History] Aspirin [Adult Low Dose Aspirin EC] 81 mg PO DAILY 04/19/16 [History] Atorvastatin Calcium [Lipitor] 80 mg PO HS 04/04/23 [History] Empagliflozin [Jardiance] 10 mg PO DAILY 04/04/23 [History] Insulin Glargine,Hum.rec.anlog [Insulin Glargine Solostar] 40 units SQ HS 04/04/23 [History] Loratadine [Claritin] 10 mg PO DAILY 04/04/23 [History] Losartan [Cozaar] 50 mg PO BID 04/04/23 [History] Tamsulosin HCl [Flomax] 0.4 mg PO DAILY 04/04/23 [History] amLODIPine [Norvasc] 10 mg PO DAILY 04/04/23 [History] hydrALAZINE HCL 25 mg PO TID 04/04/23 [History] metFORMIN HCL [Glucophage] 500 mg PO BID 04/04/23 [History] HYDROcodone/APAP 5-325MG [Gormania 5-325] 1 - 2 tab PO Q4HR PRN #6 tab 04/05/23 [Rx] Ketorolac [Toradol] 10 mg PO Q6HR PRN #6 tab 04/05/23 [Rx] Ondansetron [Zofran] 4 mg PO Q6HR PRN #10 tab 04/05/23 [Rx] Follow up Appointment(s)/Referral(s): [facility],Clinic [Primary Care Provider] - 1-2 days Activity/Diet/Wound Care/Special Instructions: Drink plenty of fluids. Diet as tolerated. Activity as tolerated. Discharge Disposition: HOME SELF-CARE
[2023-04-05] MEDS: PANTOPRAZOLE 40 MG TABLET PO SCH (08:32)
[2023-04-05] MEDS: LOSARTAN 50 MG TAB PO SCH (08:32)
[2023-04-05] MEDS: NAPROXEN 250 MG TAB PO SCH (08:32)
[2023-04-05] MEDS: metFORMIN 500 MG TAB PO SCH (08:32)
[2023-04-05] MEDS: hydrALAZINE HCL 25 MG TAB PO SCH (08:32)
[2023-04-05] MEDS ORDERED: ASPIRIN 81 MG PO SCH (09:00)
[2023-04-05] MEDS ORDERED: LORATADINE 10 MG TAB PO SCH (09:00)
[2023-04-05] MEDS ORDERED: DAPAGLIFLOZIN PROPANEDIOL 5 MG TABLET PO SCH (09:00)
[2023-04-05] MEDS ORDERED: TAMSULOSIN 0.4 MG CAP.ER.24H PO SCH (09:00)
[2023-04-05] MEDS ORDERED: amLODIPine 10 MG TAB PO SCH (09:00)
== END 2023-04-05 10:46 | disposition home or self-care (01) | DRG 661 ==
LOC: EC 01:52 → 4SSUR 07:51
PROVIDERS: ADMIT Urology; ATTEND Urology
PROC: 0TC68ZZ Extirpation of Matter from Right Ureter, Via Natural or Artificial Opening Endoscopic (ICD-10-PCS; principal; 2023-04-04 08:25)
PROC: 0T768DZ Dilation of Right Ureter with Intraluminal Device, Via Natural or Artificial Opening Endoscopic (ICD-10-PCS; principal; 2023-04-04 08:25)
DX: N13.2 Hydronephrosis with renal and ureteral calculous obstruction (principal); I10 Essential (primary) hypertension; E11.9 Type 2 diabetes mellitus without complications; K21.9 Gastro-esophageal reflux disease without esophagitis; J45.909 Unspecified asthma, uncomplicated; G47.30 Sleep apnea, unspecified; Z88.5 Allergy status to narcotic agent; Z88.8 Allergy status to other drugs, medicaments and biological substances; Z88.2 Allergy status to sulfonamides; Z79.899 Other long term (current) drug therapy; Z79.82 Long term (current) use of aspirin; Z79.51 Long term (current) use of inhaled steroids
CPT/HCPCS: 36415; 74176; 80048; 81001; 82365; 85025; 96361; 96374; 96375; 96376; 99285

== ENCOUNTER 2023-04-09 23:10 | Inpatient (IN) | payer OTHER ==
[2023-04-09 23:18] VITALS: TEMP 97.9
[2023-04-10] MEDS ORDERED: KETOROLAC 15 MG/ML 1 ML VIAL IVP STA (00:36)
[2023-04-10] MEDS ORDERED: ONDANSETRON 4 MG/2 ML VIAL IVP STA (00:36)
[2023-04-10] MEDS ORDERED: SODIUM CHLORIDE 0.9% 1,000 ML IV STA ×3 (00:36→02:07)
[2023-04-10 01:37] LABS: Basophils % (A) 0 %; Eosinophils # (A) 0.1 k/uL (0-0.7); Eosinophils % (A) 1 %; HCT 43.5 % (39.0-53.0); HGB 14.6 gm/dL (13.0-17.5); Lymphocytes # (A) 1.5 k/uL (1.0-4.8); Lymphocytes % (A) 10 %; MCH 28.9 pg (25.0-35.0); MCHC 33.6 g/dL (31.0-37.0); MCV 85.8 fL (80.0-100.0); Mean Platelet Volume 7.8; Monocytes # (A) 0.8 k/uL (0-1.0); Monocytes % (A) 6 %; Neutrophils # (A) 12.2 k/uL (1.3-7.7); Neutrophils % (A) 82 %; Platelet Count 300 k/uL (150-450); RBC 5.06 m/uL (4.30-5.90); RDW 13.3 % (11.5-15.5); WBC 14.8 k/uL (3.8-10.6)
[2023-04-10 01:39] LABS: ALT 24 U/L (4-49); AST 23 U/L (17-59); African American GFR (CKD) 42 (>60 ml/min/1.73 sqM); Albumin 3.9 g/dL (3.5-5.0); Alkaline Phosphatase 98 U/L (38-126); Anion Gap 9 mmol/L; Blood Urea Nitrogen 35 mg/dL (9-20); Carbon Dioxide 28 mmol/L (22-30); Chloride 99 mmol/L (98-107); Glucose 156 mg/dL (74-99); Lipase 113 U/L (23-300); Non-African American GFR(CKD) 36 (>60 ml/min/1.73 sqM); Potassium 3.9 mmol/L (3.5-5.1); Sodium 136 mmol/L (137-145); Total Bilirubin 0.7 mg/dL (0.2-1.3); Total Protein 6.9 g/dL (6.3-8.2)
[2023-04-10 01:40] LABS: Amorphous Sediment,Urine Few /hpf; Appearance,Urine Cloudy (Clear); Bacteria,Urine Moderate /hpf; Bilirubin,Urine Negative (Negative); Blood,Urine Large (Negative); Color,Urine Yellow; Glucose,Urine (UA) Trace (Negative); Hyaline Casts,Urine 32 /lpf (0-2); Ketones,Urine Negative (Negative); Leukocyte Esterase,Urine Large (Negative); Mucus,Urine Occasional /hpf; Nitrite,Urine Negative (Negative); Protein,Urine 1+ (Negative); RBC,Urine >182 /hpf (0-5); Specific Gravity,Urine 1.025 (1.001-1.035); Squamous Epithelial Cell,Urine <1 /hpf (0-4); Urobilinogen,Urine <2.0 mg/dL (<2.0); WBC,Urine 86 /hpf (0-5)
--- NOTE | 2023-04-10 02:57 | ED ---
Back Pain HPI - General Source: patient Limitations: no limitations <Marline Fisher - Last Filed: 04/12/23 16:01> <Darin Bautista - Last Filed: 04/13/23 00:19> - General Chief Complaint: Back Pain/Injury Stated Complaint: kidney stones Time Seen by Provider: 04/10/23 00:29 - History of Present Illness Initial Comments: Patient is 62-year-old male who presents the emergency department for right back pain. Patient had kidney stone removal and stent placement with Dr. Dave on 04/04. States he has been feeling well and barely using pain medication until tonight. He has pain in his right back similar to his previous pain however has new onset burning with urination and increased blood in urine.. He denies fever and chills. No abdominal pain. He's had nausea with several episodes of vomiting today. Denies change in bowel pattern. Patient was supposed to get stent removed this Sunday. (Marline Fishre) - Related Data Home Medications Medication Instructions Recorded Confirmed Naproxen 500 mg PO BID 07/23/15 04/10/23 Omeprazole [PriLOSEC] 20 mg PO BID 07/23/15 04/10/23 Aspirin [Adult Low Dose Aspirin EC] 81 mg PO DAILY 04/19/16 04/10/23 Atorvastatin Calcium [Lipitor] 80 mg PO HS 04/04/23 04/10/23 Empagliflozin [Jardiance] 10 mg PO DAILY 04/04/23 04/10/23 Insulin Glargine,Hum.rec.anlog 40 units SQ HS 04/04/23 04/10/23 [Insulin Glargine Solostar] Loratadine [Claritin] 10 mg PO DAILY 04/04/23 04/10/23 Losartan [Cozaar] 50 mg PO BID 04/04/23 04/10/23 Tamsulosin HCl [Flomax] 0.4 mg PO DAILY 04/04/23 04/10/23 amLODIPine [Norvasc] 10 mg PO DAILY 04/04/23 04/10/23 hydrALAZINE HCL 25 mg PO TID 04/04/23 04/10/23 metFORMIN HCL [Glucophage] 500 mg PO BID 04/04/23 04/10/23 Previous Rx's Medication Instructions Recorded HYDROcodone/APAP 5-325MG [[place] 1 - 2 tab PO Q4HR PRN #6 tab 04/05/23 5-325] Ketorolac [Toradol] 10 mg PO Q6HR PRN #6 tab 04/05/23 Ondansetron [Zofran] 4 mg PO Q6HR PRN #10 tab 04/05/23 cefUROXime axetiL [Ceftin] 500 mg PO BID 4 Days #8 tab 04/10/23 Allergies Allergy/AdvReac Type Severity Reaction Status Date / Time codeine Allergy Hypotension Verified 04/10/23 07:02 lisinopril Allergy Unknown Verified 04/10/23 07:02 morphine Allergy Rash/Hives Verified 04/10/23 07:02 sulfacetamide Allergy Rash/Hives Verified 04/10/23 07:02 [From Sulfamide] hydrocodone AdvReac Flushing Verified 04/10/23 07:02 Review of Systems ROS Other: All systems not noted in ROS Statement are negative. <Marline Fisher - Last Filed: 04/12/23 16:01> ROS Other: All systems not noted in ROS Statement are negative. <Darin Bautista - Last Filed: 04/13/23 00:19> ROS Statement: Those systems with pertinent positive or pertinent negative responses have been documented in the HPI. Past Medical History Past Medical History: Asthma, Diabetes Mellitus, GERD/Reflux, Hypertension, Sleep Apnea/CPAP/BIPAP Additional Past Medical History / Comment(s): seasonal allergies,occas. cough, has cpap, positional apnea. History of Any Multi-Drug Resistant Organisms: None Reported Past Surgical History: Appendectomy Past Anesthesia/Blood Transfusion Reactions: No Reported Reaction Past Psychological History: No Psychological Hx Reported Smoking Status: Never smoker Past Alcohol Use History: Rare Past Drug Use History: None Reported - Past Family History Mother Family Medical History: No Reported History <Marline Fisher - Last Filed: 04/12/23 16:01> General Exam Limitations: no limitations General appearance: alert Eye exam: Present: normal appearance, PERRL, EOMI. Absent: scleral icterus, conjunctival injection, periorbital swelling Respiratory exam: Present: normal lung sounds bilaterally. Absent: respiratory distress, wheezes, rales, rhonchi, stridor Cardiovascular Exam: Present: regular rate, normal rhythm, normal heart sounds. Absent: systolic murmur, diastolic murmur, rubs, gallop, clicks GI/Abdominal exam: Present: soft, normal bowel sounds. Absent: distended, tenderness, guarding, rebound, rigid Back exam: Present: normal inspection, full ROM, CVA tenderness (R). Absent: CVA tenderness (L) Neurological exam: Present: alert Psychiatric exam: Present: normal affect, normal mood Skin exam: Present: warm, dry, intact, normal color. Absent: rash <Marline Fisher - Last Filed: 04/12/23 16:01> Course Vital Signs 04/09/23 04/10/23 04/10/23 23:14 04:21 06:45 Temperature 97.9 F Pulse Rate 102 H 72 66 Respiratory 18 16 16 Rate Blood Pressure 180/110 90/51 107/65 O2 Sat by Pulse 97 97 98 Oximetry 04/10/23 04/10/23 04/10/23 08:30 12:00 14:39 Temperature Pulse Rate 64 70 77 Respiratory 18 14 17 Rate Blood Pressure 104/68 117/74 120/74 O2 Sat by Pulse 99 95 99 Oximetry Medical Decision Making - Lab Data Result diagrams: 04/10/23 01:10 04/10/23 01:10 <Marline Fisher - Last Filed: 04/12/23 16:01> - Lab Data Result diagrams: 04/10/23 01:10 04/10/23 01:10 <Darin Bautista - Last Filed: 04/13/23 00:19> - Medical Decision Making Was pt. sent in by a medical professional or institution (, PA, FAREBOX REPAIRER, urgent care, hospital, or skilled nursing...) When possible be specific @ -No Did you speak to anyone other than the patient for history (EMS, parent, family, police, friend...)? What history was obtained from this source @ -No Did you review nursing and triage notes (agree or disagree)? Why? @ -I reviewed and agree with nursing and triage notes Were old charts reviewed (outside hosp., previous admission, EMS record, old EKG, old radiological studies, urgent care reports/EKG's, skilled nursing records)? Report findings @ Reviewed recent admission and urology operating note patient had kidney stone and stent placement Differential Diagnosis (chest pain, altered mental status, abdominal pain women, abdominal pain men, vaginal bleeding, weakness, fever, dyspnea, syncope, headache, dizziness, GI bleed, back pain, seizure, CVA, palpatations, mental health)? @ -Differential Abdominal Pain Men: Appendicitis, cholecystitis, diverticulosis, ischemic bowel, pancreatitis, hepatitis, UTI, gastroenteritis, AAA, incarcerated hernia, bowel obstruction, constipation, inflammatory bowel, hepatitis, peptic ulcer disease, splenic infarction, perforated viscus, testicular torsion, this is not meant to be an all-inclusive list EKG interpreted by me (3pts min.). @ -As above X-rays interpreted by me (1pt min.). @ -None done CT interpreted by me (1pt min.). @ -None done U/S interpreted by me (1pt. min.). @ -None done What testing was considered but not performed or refused? (CT, X-rays, U/S, labs)? Why? @ -None What meds were considered but not given or refused? Why? @ -None Did you discuss the management of the patient with other professionals (geraldo duran i.e. , PA, FAREBOX REPAIRER, lab, RT, psych nurse, rn social work, meat molder, teacher, field artillery officer, leather case finisher)? Give summary @ -No Was smoking cessation discussed for >3mins.? @ -No Was critical care preformed (if so, how long)? @ -No Were there social determinants of health that impacted care today? How? (Homelessness, low income, unemployed, alcoholism, drug addiction, transportati on, low edu. Level, literacy, decrease access to med. care, residential, rehab)? @ -No Was there de-escalation of care discussed even if they declined (Discuss DNR or withdrawal of care, Hospice)? DNR status @ -No What co-morbidities impacted this encounter? (DM, HTN, Smoking, COPD, CAD, Cancer, CVA, ARF, Chemo, Hep., AIDS, mental health diagnosis, sleep apnea, morbid obesity)? @ -None Was patient admitted / discharged? Hospital course, mention meds given and route, prescriptions, significant lab abnormalities, going to OR and other pertinent info. @ -Patient presenting with right back pain and dysuria after recent kidney stone removal and stent placement. He is afebrile.Laboratory studies reveal leukocytosis of 14.8, increased from previous visit 11.0. There is acute kidney injury, creatinine at 1.92, BUN 35. Urinalysis shows evidence of infection. Blood cultures obtained and patient started on IV Rocephin. He was given large IV bolus. His pain improved significantly. Patient did not have any further episodes of vomiting. Patient to be admitted for UTI, concern for pyelephritis, and LELIA. Case discussed with Dr. Kuhn who accepts admission. Upon discussing admission with patient and he expresses concern with severe headache he has had for 2 weeks. Pain is around his temples. States he feels numbness around his lips. Denies visual symptoms denies focal weakness. Denies recent head trauma and fall. Patient is very anxious he expresses concern for aneurysm. No personal family history of aneurysm. Patient requesting CT he states he is supposed to get one outpatient on Sunday. CT obtained results pending Undiagnosed new problem with uncertain prognosis? @ -No Drug Therapy requiring intensive monitoring for toxicity (Heparin, Nitro, Insulin, Cardizem)? @ -No Were any procedures done? @ -No Diagnosis/symptom? @ -UTI, LELIA, headache Acute, or Chronic, or Acute on Chronic? @ acute Uncomplicated (without systemic symptoms) or Complicated (systemic symptoms)? @ -uncomplicated Side effects of treatment? @ -No Exacerbation, Progression, or Severe Exacerbation? @ -No Poses a threat to life or bodily function? How? (Chest pain, [place], [place], pneumonia, PE, COPD, DKA, ARF, appy, cholecystitis, CVA, Diverticulitis, Homicidal, Suicidal, threat to staff... and all critical care pts) @ Yes Dr. Bautista is my attending (Marline Fisher) CT abdomen and pelvis is interpreted by myself reveals no evidence of obvious acute process. Patient has right-sided ureteral stent present without any obvious acute issue. Patient's brain CT is interpreted by myself and showed no obvious acute intracranial process. (Darin Bautista) - Lab Data Lab Results 04/10/23 04/10/23 04/10/23 Range/Units 01:10 01:10 01:10 WBC 14.8 H (3.8-10.6) k/uL RBC 5.06 (4.30-5.90) m/uL Hgb 14.6 (13.0-17.5) gm/dL Hct 43.5 (39.0-53.0) % MCV 85.8 (80.0-100.0) fL MCH 28.9 (25.0-35.0) pg MCHC 33.6 (31.0-37.0) g/dL RDW 13.3 (11.5-15.5) % Plt Count 300 (150-450) k/uL MPV 7.8 Neutrophils % 82 % Lymphocytes % 10 % Monocytes % 6 % Eosinophils % 1 % Basophils % 0 % Neutrophils # 12.2 H (1.3-7.7) k/uL Lymphocytes # 1.5 (1.0-4.8) k/uL Monocytes # 0.8 (0-1.0) k/uL Eosinophils # 0.1 (0-0.7) k/uL Basophils # 0.0 (0-0.2) k/uL Sodium 136 L (137-145) mmol/L Potassium 3.9 (3.5-5.1) mmol/L Chloride 99 (98-107) mmol/L Carbon Dioxide 28 (22-30) mmol/L Anion Gap 9 mmol/L BUN 35 H (9-20) mg/dL Creatinine 1.92 H (0.66-1.25) mg/dL Est GFR (CKD-EPI)AfAm 42 (>60 ml/min/1.73 sqM) Est GFR (CKD-EPI)NonAf 36 (>60 ml/min/1.73 sqM) Glucose 156 H (74-99) mg/dL Plasma Lactic Acid Ap (0.7-2.0) mmol/L Calcium 9.0 (8.4-10.2) mg/dL Total Bilirubin 0.7 (0.2-1.3) mg/dL AST 23 (17-59) U/L ALT 24 (4-49) U/L Alkaline Phosphatase 98 (38-126) U/L Total Protein 6.9 (6.3-8.2) g/dL Albumin 3.9 (3.5-5.0) g/dL Lipase 113 (23-300) U/L Urine Color Yellow Urine Appearance Cloudy (Clear) Urine pH 5.0 (5.0-8.0) Ur Specific [place] 1.025 (1.001-1.035) Urine Protein 1+ H (Negative) Urine Glucose (UA) Trace H (Negative) Urine Ketones Negative (Negative) Urine Blood Large H (Negative) Urine Nitrite Negative (Negative) Urine Bilirubin Negative (Negative) Urine Urobilinogen <2.0 (<2.0) mg/dL Ur Leukocyte Esterase Large H (Negative) Urine RBC >182 H (0-5) /hpf Urine WBC 86 H (0-5) /hpf Ur Squamous Epith Cells <1 (0-4) /hpf Amorphous Sediment Few H (None) /hpf Urine Bacteria Moderate H (None) /hpf Hyaline Casts 32 H (0-2) /lpf Urine Mucus Occasional H (None) /hpf 04/10/23 Range/Units 01:10 WBC (3.8-10.6) k/uL RBC (4.30-5.90) m/uL Hgb (13.0-17.5) gm/dL Hct (39.0-53.0) % MCV (80.0-100.0) fL MCH (25.0-35.0) pg MCHC (31.0-37.0) g/dL RDW (11.5-15.5) % Plt Count (150-450) k/uL MPV Neutrophils % % Lymphocytes % % Monocytes % % Eosinophils % % Basophils % % Neutrophils # (1.3-7.7) k/uL Lymphocytes # (1.0-4.8) k/uL Monocytes # (0-1.0) k/uL Eosinophils # (0-0.7) k/uL Basophils # (0-0.2) k/uL Sodium (137-145) mmol/L Potassium (3.5-5.1) mmol/L Chloride (98-107) mmol/L Carbon Dioxide (22-30) mmol/L Anion Gap mmol/L BUN (9-20) mg/dL Creatinine (0.66-1.25) mg/dL Est GFR (CKD-EPI)AfAm (>60 ml/min/1.73 sqM) Est GFR (CKD-EPI)NonAf (>60 ml/min/1.73 sqM) Glucose (74-99) mg/dL Plasma Lactic Acid Ap 1.2 (0.7-2.0) mmol/L Calcium (8.4-10.2) mg/dL Total Bilirubin (0.2-1.3) mg/dL AST (17-59) U/L ALT (4-49) U/L Alkaline Phosphatase (38-126) U/L Total Protein (6.3-8.2) g/dL Albumin (3.5-5.0) g/dL Lipase (23-300) U/L Urine Color Urine Appearance (Clear) Urine pH (5.0-8.0) Ur Specific [place] (1.001-1.035) Urine Protein (Negative) Urine Glucose (UA) (Negative) Urine Ketones (Negative) Urine Blood (Negative) Urine Nitrite (Negative) Urine Bilirubin (Negative) Urine Urobilinogen (<2.0) mg/dL Ur Leukocyte Esterase (Negative) Urine RBC (0-5) /hpf Urine WBC (0-5) /hpf Ur Squamous Epith Cells (0-4) /hpf Amorphous Sediment (None) /hpf Urine Bacteria (None) /hpf Hyaline Casts (0-2) /lpf Urine Mucus (None) /hpf Disposition <Marline Fisher - Last Filed: 04/12/23 16:01> <Darin Bautista - Last Filed: 04/13/23 00:19> Clinical Impression: UTI (urinary tract infection), LELIA (acute kidney injury), Headache Disposition: ADMITTED IP TO THIS HOSP Condition: Fair
--- NOTE | 2023-04-10 05:12 | P.HPIM ---
History of Present Illness H&P Date: 04/10/23 Patient is a 62-year-old male with a PMH of recent right-sided kidney stone status post ureteroscopic removal with stent placement on 04/04 who presented to the emergency room with complaints of right flank pain, nausea, and dysuria. The patient reports that he is doing well following the recent removal of right- sided kidney stone with stent placement until earlier tonight when he initially developed a mild right-sided flank pain, similar to his initial onset of the kidney stone. The patient quickly worsened to a 10 out of 10, with associated nausea without emesis, with no alleviating or exacerbating features. He denied experiencing fevers or chills. Also denied chest pain, shortness of breath, cough. The patient does also report a headache ongoing for the past several months for which he was scheduled [facility] Patient did request however that the emergency room provider ordered a CT brain which was performed. The report was not available for review at the time of documentation. CT abdomen and pelvis was obtained by her report would not be available for several hours thereby study was reviewed with the ED provider. No obvious stones or hydronephrosis noted as per the ED provider. The patient was afebrile in the emergency room. Laboratory evaluation was remarkable for leukocytosis at 14.8, sodium 136, BUN 35, and creatinine 1.92 with a UA grossly abnormal. ED documentation reviewed and case discussed with ED provider. Review of systems: Pertinent positives and negatives as discussed in HPI, a complete review of s ystems was performed and all other systems are negative. Physical examination: Vital signs reviewed General: non toxic, no distress, appears at stated age, normal weight Derm: no unusual rashes/lesions, warm Head: atraumatic, normocephalic, symmetric Eyes: EOMI, no lid lag, anicteric sclera, pupils equal round reactive to light ENT: Nose and ears atraumatic Neck: No cervical lymphadenopathy, trachea midline, supple Mouth: no lip lesion, mucus membranes moist Cardiovascular: S1S2 reg, no murmur, positive dorsalis pedis pulse bilateral, no edema Lungs: CTA bilateral, no rhonchi, no rales, no accessory muscle use Abdominal: soft, right CVA tenderness noted, no guarding Ext: muscle strength 5 out of 5 in all 4 extremities grossly, no gross muscle atrophy, no contractures, Neuro: CN II-XI grossly intact, no gross focal neuro deficits Psych: Alert, oriented, appropriate affect Assessment: # Right-sided pyelonephritis # Acute kidney injury Imaging: CT abdomen and pelvis was obtained by her report would not be available for several hours thereby study was reviewed with the ED provider. No obvious stones or hydronephrosis noted as per the ED provider. Data Review: The patient was afebrile in the emergency room. Laboratory evaluation was r emarkable for leukocytosis at 14.8, sodium 136, BUN 35, and creatinine 1.92 with a UA grossly abnormal. Plan: Continue ceftriaxone 2 g every 24 hours Follow-up urine culture F/u BMP C/w IVFs NS 130 ml/hr Pain control DVT prophylaxis: Lovenox subq The patient is admitted with an anticipated greater than 2 midnight stay for evaluation of pyelonephritis CODE STATUS: Full Code Discussed with: Patient Anticipated discharge place: Home Past Medical History Past Medical History: Asthma, Diabetes Mellitus, GERD/Reflux, Hypertension, Sleep Apnea/CPAP/BIPAP Additional Past Medical History / Comment(s): seasonal allergies,occas. cough, has cpap, positional apnea. History of Any Multi-Drug Resistant Organisms: None Reported Past Surgical History: Appendectomy Past Anesthesia/Blood Transfusion Reactions: No Reported Reaction Past Psychological History: No Psychological Hx Reported Smoking Status: Never smoker Past Alcohol Use History: Rare Past Drug Use History: None Reported - Past Family History Mother Family Medical History: No Reported History Medications and Allergies Home Medications Medication Instructions Recorded Confirmed Type Naproxen 500 mg PO BID 07/23/15 04/04/23 History Omeprazole [PriLOSEC] 20 mg PO BID 07/23/15 04/04/23 History Aspirin [Adult Low Dose Aspirin EC] 81 mg PO DAILY 04/19/16 04/04/23 History Atorvastatin Calcium [Lipitor] 80 mg PO HS 04/04/23 04/04/23 History Empagliflozin [Jardiance] 10 mg PO DAILY 04/04/23 04/04/23 History Insulin Glargine,Hum.rec.anlog 40 units SQ HS 04/04/23 04/04/23 History [Insulin Glargine Solostar] Loratadine [Claritin] 10 mg PO DAILY 04/04/23 04/04/23 History Losartan [Cozaar] 50 mg PO BID 04/04/23 04/04/23 History Tamsulosin HCl [Flomax] 0.4 mg PO DAILY 04/04/23 04/04/23 History amLODIPine [Norvasc] 10 mg PO DAILY 04/04/23 04/04/23 History hydrALAZINE HCL 25 mg PO TID 04/04/23 04/04/23 History metFORMIN HCL [Glucophage] 500 mg PO BID 04/04/23 04/04/23 History HYDROcodone/APAP 5-325MG [[place] 1 - 2 tab PO Q4HR PRN #6 tab 04/05/23 Rx 5-325] Ketorolac [Toradol] 10 mg PO Q6HR PRN #6 tab 04/05/23 Rx Ondansetron [Zofran] 4 mg PO Q6HR PRN #10 tab 04/05/23 Rx Allergies Allergy/AdvReac Type Severity Reaction Status Date / Time codeine Allergy Hypotension Verified 04/04/23 14:47 lisinopril Allergy Unknown Verified 04/04/23 14:47 morphine Allergy Rash/Hives Verified 04/04/23 14:47 sulfacetamide Allergy Rash/Hives Verified 04/04/23 14:47 [From Sulfamide] hydrocodone AdvReac Flushing Verified 04/04/23 14:47 Physical Exam Vitals: Vital Signs Temp Pulse Resp BP Pulse Ox 04/10/23 04:21 72 16 90/51 97 04/09/23 23:14 97.9 F 102 H 18 180/110 97 Intake and Output 04/09/23 04/09/23 04/10/23 14:59 22:59 06:59 Other: Weight 119.748 kg Results CBC & Chem 7: 04/10/23 01:10 04/10/23 01:10 Labs: Abnormal Lab Results - Last 24 Hours (Table) 04/10/23 04/10/23 04/10/23 Range/Units 01:10 01:10 01:10 WBC 14.8 H (3.8-10.6) k/uL Neutrophils # 12.2 H (1.3-7.7) k/uL Sodium 136 L (137-145) mmol/L BUN 35 H (9-20) mg/dL Creatinine 1.92 H (0.66-1.25) mg/dL Glucose 156 H (74-99) mg/dL Urine Protein 1+ H (Negative) Urine Glucose (UA) Trace H (Negative) Urine Blood Large H (Negative) Ur Leukocyte Esterase Large H (Negative) Urine RBC >182 H (0-5) /hpf Urine WBC 86 H (0-5) /hpf Amorphous Sediment Few H (None) /hpf Urine Bacteria Moderate H (None) /hpf Hyaline Casts 32 H (0-2) /lpf Urine Mucus Occasional H (None) /hpf
--- NOTE | 2023-04-10 05:40 | CT ---
EXAMINATION TYPE: CT abdomen pelvis wo con DATE OF EXAM: 04/10/2023 HISTORY: Pt. had kidney stone removed x5 days ago. Pt. c/o N/V, lower abdominal and right flank pain CT DLP: 1360.4 mGycm. Automated Exposure Control for Dose Reduction was Utilized. TECHNIQUE: CT scan of the abdomen and pelvis is performed without oral or IV contrast. COMPARISON: Prior CT 6 days ago FINDINGS: Within the limitations of a non-contrast study, the following observations are made. LUNG BASES: Mild bibasilar linear atelectasis and/or scarring is redemonstrated. Some coronary artery calcification is again seen. Trace pericardial effusion redemonstrated LIVER/GB: No significant abnormality is appreciated. PANCREAS: Mild generalized atrophy redemonstrated. SPLEEN: Incidental small splenule axial image 46 redemonstrated. ADRENALS: No significant abnormality is seen. KIDNEYS: No left-sided renal calculus or hydronephrosis. New right double-J ureter stent. I do not distinctly see prior visualized 3 mm distal right ureter ca lculus. No new right renal or ureter calculus clearly seen. No intraluminal calculus in the poorly di stended bladder. No right-sided hydronephrosis. Small right lateral bladder diverticulum axial image 136 redemonstrated. BOWEL: No significant abnormality is seen. GENITAL ORGANS: Enlarged prostate consistent with BPH. Adjacent tiny pelvic phleboliths redemonstrate d. LYMPH NODES: No greater than 1cm abdominal or pelvic lymph nodes are appreciated. OSSEOUS STRUCTURES: Sacralized left L5 segment redemonstrated. OTHER: Small fat-containing left inguinal hernia redemonstrated. Stable tiny fat-containing umbilical hernia sagittal image 80. IMPRESSION: There is new right double-J ureter stent which appears satisfactory in position. Prior vi sualized 3 mm distal ureter calculus not clearly seen. No new right sided calculi or worsening hydron ephrosis. No new or acute finding seen on noncontrast CT.
--- NOTE | 2023-04-10 05:42 | CT ---
EXAMINATION TYPE: CT brain wo con DATE OF EXAM: 04/10/2023 HISTORY: Pt. c/o N/V,HEADACHE,PT TO HAVE CATSCAN ON SUNDAY FOR SAME ISSUE, DOING TODAY INSTEAD CT DLP: 1262.4 mGycm. Automated Exposure Control for Dose Reduction was Utilized. TECHNIQUE: CT scan of the head is performed without contrast. COMPARISON: CT brain March 31, 2020. FINDINGS: There is no acute intracranial hemorrhage or midline shift identified. Ventricles and sul ci within normal limits in size for patient's age. Allen-white matter differentiation is preserved. S oft tissue density consistent with cerumen is seen in the deep right external auditory canal axial im age 15. The globes are intact and the visualized sinuses are clear. IMPRESSION: No acute intracranial hemorrhage or midline shift. No significant change from prior CT.
[2023-04-10] MEDS ORDERED: NALOXONE 0.4 MG/ML 1 ML VIAL IV PRN (05:43)
[2023-04-10] MEDS ORDERED: ACETAMINOPHEN TAB 325 MG TAB PO PRN (05:43)
[2023-04-10] MEDS ORDERED: ONDANSETRON 4 MG/2 ML VIAL IVP PRN (06:00)
[2023-04-10] MEDS ORDERED: KETOROLAC 15 MG/ML 1 ML VIAL IVP PRN (08:00)
[2023-04-10] MEDS ORDERED: SODIUM CHLORIDE 0.9% 1,000 ML IV SCH (08:45)
--- NOTE | 2023-04-10 08:47 | P.GSCN ---
History of Present Illness Consult date: 04/10/23 History of present illness: 62-year-old gentleman recently in the hospital with a right ureteral calculus. This required surgery by to remove the stone. A stent was placed. He had been doing well over the weekend but developed severe pain and in the emergency room last night. He had no fever. He had nausea and vomiting flank pain. He feels much better this morning. He is due to have the stent removed tomorrow. The patient had a computed tomography scan in the emergency room identifying the right double-J catheter without any other abnormality noted. Review of Systems All systems: negative - Constitutional Denies fever, Denies weight loss - EENT Eyes: denies blurred vision Ears, nose, mouth and throat: Denies dysphagia - Cardiovascular Denies chest pain, Denies shortness of breath - Respiratory Denies cough, Denies 7 - Gastrointestinal Reports as per HPI - Genitourinary Denies dysuria, Denies hematuria - Integumentary Denies rash, Denies unusual bruising - Neurological Denies headaches, Denies syncope - Hematologic/Lymphatic Denies easy bleeding, Denies easy bruising Past Medical History Past Medical History: Asthma, Diabetes Mellitus, GERD/Reflux, Hypertension, Sleep Apnea/CPAP/BIPAP Additional Past Medical History / Comment(s): seasonal allergies,occas. cough, has cpap, positional apnea. History of Any Multi-Drug Resistant Organisms: None Reported Past Surgical History: Appendectomy Past Anesthesia/Blood Transfusion Reactions: No Reported Reaction Past Psychological History: No Psychological Hx Reported Smoking Status: Never smoker Past Alcohol Use History: Rare Past Drug Use History: None Reported - Past Family History Mother Family Medical History: No Reported History Medications and Allergies Home Medications Medication Instructions Recorded Confirmed Type Naproxen 500 mg PO BID 07/23/15 04/10/23 History Omeprazole [PriLOSEC] 20 mg PO BID 07/23/15 04/10/23 History Aspirin [Adult Low Dose Aspirin EC] 81 mg PO DAILY 04/19/16 04/10/23 History Atorvastatin Calcium [Lipitor] 80 mg PO HS 04/04/23 04/10/23 History Empagliflozin [Jardiance] 10 mg PO DAILY 04/04/23 04/10/23 History Insulin Glargine,Hum.rec.anlog 40 units SQ 04/04/23 04/10/23 History [Insulin Glargine Solostar] Loratadine [Claritin] 10 mg PO DAILY 04/04/23 04/10/23 History Losartan [Cozaar] 50 mg PO BID 04/04/23 04/10/23 History Tamsulosin HCl [Flomax] 0.4 mg PO DAILY 04/04/23 04/10/23 History amLODIPine [Norvasc] 10 mg PO DAILY 04/04/23 04/10/23 History hydrALAZINE HCL 25 mg PO TID 04/04/23 04/10/23 History metFORMIN HCL [Glucophage] 500 mg PO BID 04/04/23 04/10/23 History HYDROcodone/APAP 5-325MG [[place] 1 - 2 tab PO Q4HR PRN #6 tab 04/05/23 04/10/23 R x 5-325] Ketorolac [Toradol] 10 mg PO Q6HR PRN #6 tab 04/05/23 04/10/23 Rx Ondansetron [Zofran] 4 mg PO Q6HR PRN #10 tab 04/05/23 04/10/23 Rx Allergies Allergy/AdvReac Type Severity Reaction Status Date / Time codeine Allergy Hypotension Verified 04/10/23 07:02 lisinopril Allergy Unknown Verified 04/10/23 07:02 morphine Allergy Rash/Hives Verified 04/10/23 07:02 sulfacetamide Allergy Rash/Hives Verified 04/10/23 07:02 [From Sulfamide] hydrocodone AdvReac Flushing Verified 04/10/23 07:02 Surgical - Exam Vital Signs Temp Pulse Resp BP Pulse Ox 97.9 F 102 H 18 180/110 97 04/09/23 23:14 04/09/23 23:14 04/09/23 23:14 04/09/23 23:14 04/09/23 23:14 - General well developed, well nourished, no distress - Eyes normal ocular movement, no icteric - ENT no hearing loss, no congestion - Neck no masses, trachea midline - Respiratory normal respiratory effort, clear to auscultation - Abdomen Abdomen: soft, non tender, no guarding, no rigid, no rebound - Integumentary no rash, no abnormal pigmentation - Neurologic no disoriented, no combative - Psychiatric oriented to time, oriented to person, oriented to place, speech is normal, memory intact Results - Labs 04/10/23 01:10 04/10/23 01:10 Abnormal Lab Results - Last 24 Hours (Table) 04/10/23 04/10/23 04/10/23 Range/Units 01:10 01:10 01:10 WBC 14.8 H (3.8-10.6) k/uL Neutrophils # 12.2 H (1.3-7.7) k/uL Sodium 136 L (137-145) mmol/L BUN 35 H (9-20) mg/dL Creatinine 1.92 H (0.66-1.25) mg/dL Glucose 156 H (74-99) mg/dL Urine Protein 1+ H (Negative) Urine Glucose (UA) Trace H (Negative) Urine Blood Large H (Negative) Ur Leukocyte Esterase Large H (Negative) Urine RBC >182 H (0-5) /hpf Urine WBC 86 H (0-5) /hpf Amorphous Sediment Few H (None) /hpf Urine Bacteria Moderate H (None) /hpf Hyaline Casts 32 H (0-2) /lpf Urine Mucus Occasional H (None) /hpf Diabetes panel 04/10/23 Range/Units 01:10 Sodium 136 L (137-145) mmol/L Potassium 3.9 (3.5-5.1) mmol/L Chloride 99 (98-107) mmol/L Carbon Dioxide 28 (22-30) mmol/L BUN 35 H (9-20) mg/dL Creatinine 1.92 H (0.66-1.25) mg/dL Glucose 156 H (74-99) mg/dL Calcium 9.0 (8.4-10.2) mg/dL AST 23 (17-59) U/L ALT 24 (4-49) U/L Alkaline Phosphatase 98 (38-126) U/L Total Protein 6.9 (6.3-8.2) g/dL Albumin 3.9 (3.5-5.0) g/dL Calcium panel 04/10/23 Range/Units 01:10 Calcium 9.0 (8.4-10.2) mg/dL Albumin 3.9 (3.5-5.0) g/dL Pituitary panel 04/10/23 Range/Units 01:10 Sodium 136 L (137-145) mmol/L Potassium 3.9 (3.5-5.1) mmol/L Chloride 99 (98-107) mmol/L Carbon Dioxide 28 (22-30) mmol/L BUN 35 H (9-20) mg/dL Creatinine 1.92 H (0.66-1.25) mg/dL Glucose 156 H (74-99) mg/dL Calcium 9.0 (8.4-10.2) mg/dL Adrenal panel 04/10/23 Range/Units 01:10 Sodium 136 L (137-145) mmol/L Potassium 3.9 (3.5-5.1) mmol/L Chloride 99 (98-107) mmol/L Carbon Dioxide 28 (22-30) mmol/L BUN 35 H (9-20) mg/dL Creatinine 1.92 H (0.66-1.25) mg/dL Glucose 156 H (74-99) mg/dL Calcium 9.0 (8.4-10.2) mg/dL Total Bilirubin 0.7 (0.2-1.3) mg/dL AST 23 (17-59) U/L ALT 24 (4-49) U/L Alkaline Phosphatase 98 (38-126) U/L Total Protein 6.9 (6.3-8.2) g/dL Albumin 3.9 (3.5-5.0) g/dL - Imaging CT scan - abdomen: report reviewed, image reviewed CT scan - pelvis: report reviewed, image reviewed Assessment and Plan Assessment: Impression: Stent pain, right ureter status post right ureteroscopy laser lithotripsy with stent placement. Recommendations: Patient is comfortable from a urologic standpoint he can be discharged home. He should follow-up with tomorrow for stent removal.
[2023-04-10 08:49] LABS: Glucose,Whole Blood 84 mg/dL (70-110)
[2023-04-10] MEDS ORDERED: ENOXAPARIN 40 MG/0.4 ML SYRINGE SQ SCH (09:00)
[2023-04-10] MEDS ORDERED: diphenhydrAMINE 50 MG/ML 1 ML VIAL IVP STA (11:12)
[2023-04-10] MEDS ORDERED: PROCHLORPERAZINE INJ 10 MG/2 ML VIAL IVP STA (11:12)
[2023-04-10] MEDS ORDERED: ACETAMINOPHEN IV (For NPO) 1,000 MG in EMPTY BAG 1 BAG IVPB STA (11:12)
--- NOTE | 2023-04-10 13:52 | P.DS ---
Providers Date of admission: 04/10/23 05:44 Expected date of discharge: 04/10/23 Attending physician: Bella Kuhn MD Consults: 04/10/23 05:43 Consult Physician Routine Consulting Provider: Daniel Grant Consult Reason/Comments: uti, recent ureteral stent Do you want consulting provider notified?: Yes Primary care physician: [facility] Hospital Course: Discharge Diagnosis: Acute cystitis with hematuria status post recent ureteral stent placement. Patient discharged home on Ceftin 500 mg twice daily for an additional 4 days to complete antibiotic treatment course of 5 days. Patient instructed to return to the emergency department immediately if he develops a fever or return of flank pain, or becomes unable to urinate. Acute kidney injury, creatinine 1.9 with baseline creatinine of 1.0. Patient discharged home with prescription for repeat BMP in 3 days. Patient received a total of 3 L of IV fluid hydration during hospitalization. He was instructed to hold Toradol, losartan, and naproxen and that he may resume these medications only once instructed by or cleared by urologist after follow-up labs are completed in 3 days. Leukocytosis, likely reactive however patient does have a diagnosed UTI. Patient was discharged home with antibiotics for treatment of acute cystitis with hematuria. Patient provided with prescription to have repeat labs completed in 3 days. Urologist, Dr. Grant stated patient may be discharged and he will follow up with patient's urine culture results and repeat labs and place additional orders as indicated based upon these findings. Urine cultures and blood culture was sent to lab for evaluation at time of admission. Hospital Course: Patient is a very pleasant 62-year-old male with a past medical history of recently diagnosed right ureteral calculus and underwent right ureteroscopy and laser lithotripsy with stent placement on 04/04/[address] Grant, urologist.. Patient was discharged home and reported initially feeling well but later developing severe right lower flank pain accompanied by nausea, vomiting, and dysuria. Patient reports initially the pain felt like he was passing a kidney stone as he previously had in the past but reports this pain quickly worsened so he came to the emergency department for evaluation. He underwent CT abdomen and pelvis without contrast which revealed a new right double-J ureter stent which reported to be in satisfactory position. Prior visualized 3 mm distal ureteral calculus was not seen and no new right sided calculi or worsening hydronephrosis was present. Patient also reports headache 5 days and a brain CT was completed which was negative for acute intercranial process with no significant changes noted when compared to previous CT completed 03/31/2020. Labs were completed and reviewed. CBC showing elevated WBC count of 14.8. BMP showing acute kidney injury with BUN of 35, creatinine 1.92, and GFR of 36 with baseline creatinine of 1.0. Liver profile was unremarkable. Lipase also normal findings at 113. Urinalysis was positive for protein, glucose, blood, leukocytes, greater than 182 RBCs, and 86 WBCs. Patient was started on IV fluid hydration for acute kidney injury and antibiotics with Rocephin 2 g IVPB for treatment of acute cystitis with hematuria and admitted under our services. He was medicated with Offirmev, Benadryl, and Compazine for treatment of headache. Patient reported for resolution of previous reported right lower flank pain and headache and was requesting discharge. He was evaluated by urologist who plans on removing ureteral stent later this week. Discussed in detail with urologist, Dr. Villa concerns of discharge with recurrent UTI, leukocytosis, and acute kidney injury. He is requesting patient be discharged and follow-up in his office for further evaluation and scheduling of ureteral stent removal this week. Dr. Grant reports he will follow up on patient's urine culture results and repeat labs for close monitoring of renal function and leukocytosis outpatient. Patient instructed that he may be discharged but will need to follow up as directed and take antibiotics exactly as prescribed. Patient discharged home on Ceftin 500 mg twice daily for an additional 4 days to complete a full 5 day treatment course with antibiotics. Patient also instructed verbally and with written instructions to hold Toradol, losartan, and naproxen and that he may resume these medications once instructed by or cleared by urologist after follow-up labs are completed in 3 days. Patient instructed he will need to return to the emergency department immediately if he develops a fever, return of flank pain, or he becomes unable to urinate.Patient discharged at this time and instructed he will need to follow up with his PCP in 1-2 days and urologist as scheduled. Physical exam: Vital signs reviewed and stable. General: Nontoxic, no distress and appears stated age. Derm: Skin warm and dry, normal coloration for ethnicity. Head: Atraumatic, normocephalic and symmetric. Eyes: EOMs intact, no lid lag, and anicteric sclera Mouth: no lip lesions, mucus membranes moist Cardiovascular: regular rate and rhythm with normal S1S2, no murmur, positive posterior tibial pulses bilaterally, and cap refill < 2 seconds. Lungs: Respirations even, regular, and unlabored on room air. Lungs CTA bilaterally, no rhonchi, no rales, no wheezing, and no accessory muscle usage. Abdominal: soft, nontender to palpation, no guarding, no appreciable organomegaly. No CVA tenderness. Ext: ROM intact. No gross muscle atrophy, no edema, no contractures Neuro: Speech clear, face symmetrical and CN II-XII grossly intact with no noted focal neuro deficits Psych: Alert and oriented to person, place, time, and situation. Appropriate and pleasant affect. A total of 38 minutes of time were spent preparing this complex discharge summary. Pt was discharged on 04/10/23 at 1:50 PM. Patient was seen independently by Nurse Practitioner. This document was prepared using [employer] dictation software. Please allow for errors in metrology specialist while rare they do occur. Kevin Alfaro NP rendered care for this patient independently, reviewed the findings and plan as documented in the note above. I did not physically speak with or examine the patient on this date. Patient Condition at Discharge: Fair Plan - Discharge Summary New Discharge Prescriptions: New cefUROXime axetiL [Ceftin] 500 mg PO BID 4 Days #8 tab Continue Omeprazole [PriLOSEC] 20 mg PO BID Aspirin [Adult Low Dose Aspirin EC] 81 mg PO DAILY metFORMIN HCL [Glucophage] 500 mg PO BID Insulin Glargine,Hum.rec.anlog [Insulin Glargine Solostar] 40 units SQ HS Empagliflozin [Jardiance] 10 mg PO DAILY Atorvastatin Calcium [Lipitor] 80 mg PO HS Loratadine [Claritin] 10 mg PO DAILY HYDROcodone/APAP 5-325MG [[place] 5-325] 1 - 2 tab PO Q4HR PRN #6 tab PRN Reason: Severe Pain (Scale 7 To 10) hydrALAZINE HCL 25 mg PO TID amLODIPine [Norvasc] 10 mg PO DAILY Tamsulosin HCl [Flomax] 0.4 mg PO DAILY Ondansetron [Zofran] 4 mg PO Q6HR PRN #10 tab PRN Reason: Nausea And Vomiting No Action Naproxen 500 mg PO BID Losartan [Cozaar] 50 mg PO BID Ketorolac [Toradol] 10 mg PO Q6HR PRN #6 tab PRN Reason: Mild To Moderate Pain (1 - 6) Discharge Medication List Naproxen 500 mg PO BID 07/23/15 [History] Omeprazole [PriLOSEC] 20 mg PO BID 07/23/15 [History] Aspirin [Adult Low Dose Aspirin EC] 81 mg PO DAILY 04/19/16 [History] Atorvastatin Calcium [Lipitor] 80 mg PO HS 04/04/23 [History] Empagliflozin [Jardiance] 10 mg PO DAILY 04/04/23 [History] Insulin Glargine,Hum.rec.anlog [Insulin Glargine Solostar] 40 units SQ HS 04/04/23 [History] Loratadine [Claritin] 10 mg PO DAILY 04/04/23 [History] Losartan [Cozaar] 50 mg PO BID 04/04/23 [History] Tamsulosin HCl [Flomax] 0.4 mg PO DAILY 04/04/23 [History] amLODIPine [Norvasc] 10 mg PO DAILY 04/04/23 [History] hydrALAZINE HCL 25 mg PO TID 04/04/23 [History] metFORMIN HCL [Glucophage] 500 mg PO BID 04/04/23 [History] HYDROcodone/APAP 5-325MG [[place] 5-325] 1 - 2 tab PO Q4HR PRN #6 tab 04/05/23 [Rx] Ketorolac [Toradol] 10 mg PO Q6HR PRN #6 tab 04/05/23 [Rx] Ondansetron [Zofran] 4 mg PO Q6HR PRN #10 tab 04/05/23 [Rx] cefUROXime axetiL [Ceftin] 500 mg PO BID 4 Days #8 tab 04/10/23 [Rx] Follow up Appointment(s)/Referral(s): Daniel Grant MD [STAFF PHYSICIAN] - 3 Days [facility]Clinic [Primary Care Provider] - 1-2 days Ambulatory/Diagnostic Orders: Basic Metabolic Panel [LAB.AMB] Time Frame: 3 Days, Location: None Selected Complete Blood Count w/diff [LAB.AMB] Time Frame: 3 Days, Location: None Selected Patient Instructions/Handouts: Kidney Stones (DC), Urinary Tract Infection in Men (DC), Acute Headache (ED) Activity/Diet/Wound Care/Special Instructions: Activity: As tolerated. Take breaks as needed. Diet: Heart healthy and carb consistent diet. Avoid salts, or foods with hidden salts such as canned or boxed foods and frozen dinners. Extra salt makes your heart work harder and traps the fluid in your body for longer. Special Instructions: Take all of your medications as directed and remember to keep all of your doctor's appointments and follow-up as needed. Hold naproxen, Toradol, and losartan 3 days until repeat labs are completed and you are instructed/cleared to resume by your urologist Dr. Grant whom stated he will be following up with your urine cultures results and renal function later this week when your stent is removed. It is also important for you to return to the emergency department immediately if you develop a fever, return of flank pain or you become unable to urinate. Thank you for allowing us to participate in your care, it was truly a pleasure having you for our patient!!! Discharge Disposition: HOME SELF-CARE
[2023-04-10 14:40] VITALS: BP 120/74; PULSE 77; RESP 17
== END 2023-04-10 14:56 | disposition home or self-care (01) | DRG 690 ==
LOC: EC 23:10 → 4SSUR 04-10 05:44
PROVIDERS: ADMIT Internal Medicine; ATTEND Internal Medicine
DX: N30.01 Acute cystitis with hematuria (principal); N17.9 Acute kidney failure, unspecified; B95.61 Methicillin susceptible Staphylococcus aureus infection as the cause of diseases classified elsewhere; I10 Essential (primary) hypertension; G47.30 Sleep apnea, unspecified; J45.909 Unspecified asthma, uncomplicated; E11.9 Type 2 diabetes mellitus without complications; K21.9 Gastro-esophageal reflux disease without esophagitis; Z79.82 Long term (current) use of aspirin; Z79.84 Long term (current) use of oral hypoglycemic drugs; Z79.899 Other long term (current) drug therapy; Z87.442 Personal history of urinary calculi; Z88.5 Allergy status to narcotic agent; Z79.4 Long term (current) use of insulin
CPT/HCPCS: 36415; 70450; 74176; 80053; 81001; 83605; 83690; 85025; 87040; 87077; 87086; 87186; 96361; 96365; 96367; 96372; 96375; 96376; 99285

== ENCOUNTER → 2023-04-13 | Outpatient (CLI) | payer OTHER ==
--- NOTE | 2023-04-13 14:11 | CT ---
EXAMINATION TYPE: CT brain wo con CT DLP: 1071.8 mGycm, Automated exposure control for dose reduction was used. DATE OF EXAM: 04/13/2023 12:06 PM COMPARISON: Prior CT Brain from 04/10/2023 . CLINICAL INDICATION:Male, 62 years old with history of R51.9, Headaches x1 month. TECHNIQUE: Brain: Multiple axial CT images of the brain were obtained without IV contrast. Coronal and sagittal reformats reviewed. FINDINGS: Brain: Extra-axial spaces: No abnormal extra-axial fluid collections. Ventricular system: Within normal limits Cerebral parenchyma: No acute intraparenchymal hemorrhage or mass effect. The vargas-white junction is well differentiated. Cerebellum: Unremarkable. Mass effect: No evidence of midline shift. Intracranial vasculature: unremarkable Soft tissues: Normal. Calvarium/osseous structures: No depressed skull fracture. Paranasal sinuses and mastoid air cells: Mild scattered paranasal sinus disease. Cerumen in the right external auditory canal. Visualized orbits: Orbital contents are intact. IMPRESSION: No acute intracranial process.
== END | disposition home or self-care (01) ==
LOC: RADCTMAIN 11:50
DX: R51.9 Headache, unspecified (principal)
CPT/HCPCS: 70450

== ENCOUNTER → 2023-04-27 | Outpatient (CLI) | payer OTHER | END | disposition home or self-care (01) | LOC: LABPAT 12:19 | PROVIDERS: ATTEND Orthopaedic Surgery | DX: Z01.812 Encounter for preprocedural laboratory examination (principal); Z22.322 Carrier or suspected carrier of Methicillin resistant Staphylococcus aureus; M19.012 Primary osteoarthritis, left shoulder | CPT/HCPCS: 84550; 87070 ==

== ENCOUNTER → 2024-01-14 | Outpatient (CLI) | payer MEDICARE, OTHER | END | disposition home or self-care (01) | LOC: LABWHC1 08:33 | PROVIDERS: ATTEND Urology | DX: R97.20 Elevated prostate specific antigen [PSA] (principal) | CPT/HCPCS: 36415; 83036; 84153 ==

== ENCOUNTER → 2024-03-04 | Outpatient (CLI) | payer OTHER ==
--- NOTE | 2024-03-05 11:10 | MR ---
EXAMINATION TYPE: MR Prostate wo/w con DATE OF EXAM: 03/04/2024 9:09 AM COMPARISON: None. CLINICAL INDICATION:Male, 63 years old with history of R97.20 ELEVATED PROSTATE SPECIFIC ANTIGEN [PSA ]; Elevated PSA. TECHNIQUE: Multi-planar, multi-sequence imaging of the pelvis is performed prior to and following the uncomplicated administration of bolus intravenous gadolinium. CONTRAST: 11.5 Gadavist Interpretive Criteria: PI-RADS v2.1 SERUM PSA: 6--24 = 7.15 5-1424 = 1.1 SURGICAL PATHOLOGY: No data available. FINDINGS: Prostatic dimensions: 5.8 x 7.5 x 5.1 cm. Ellipsoid Volume:116.16 (PSA density=0.06 ng/mL/mL) CENTRAL GLAND (Central and Transition Zones/CZ+TZ): Multiple bilateral, heterogenous appearing hypertrophic stromal nodules, without suspicious lesion. M edian lobe hypertrophy with protrusion into the base of the bladder. (PI-RADS 2) PERIPHERAL ZONE (PZ): Bilateral linear, indistinct wedgelike areas of low ADC, and low T2 signal, No evidence of masslike a bnormality, or localized perfusional hypervascularity, to further suggest a focus of clinically signi ficant prostate cancer. (PI-RADS 2) SEMINAL VESICLES (SV): Symmetric and unremarkable. PERIPROSTATIC TISSUES: Unremarkable. LYMPH NODES: No enlarged pelvic lymph node. REMAINING PELVIS: Bladder wall is within normal limits given distention. There is a right bladder wall diverticulum. No abnormal free or organized intrapelvic fluid collection. No pathologic bowel dilation or mural thickening. Left fat containing inguinal hernia OSSEOUS STRUCTURES: No suspicious osseous abnormality. IMPRESSION: 1. No specific features for high-risk prostate cancer. Maximum PI-RADS score: 2. 2. Substantial BPH, estimated gland volume 116.16 mL. 3. No suspicious osseous lesion. No lymphadenopathy. No evidence of prostate adenocarcinoma involving the periprostatic tissues. 4. Right bladder wall diverticulum.
== END | disposition home or self-care (01) ==
LOC: RADMRIMAIN 01-19 08:56
PROVIDERS: ATTEND Urology
DX: N40.0 Benign prostatic hyperplasia without lower urinary tract symptoms (principal); R97.20 Elevated prostate specific antigen [PSA]; N32.3 Diverticulum of bladder
CPT/HCPCS: 72197; A9585

== ENCOUNTER 2024-03-09 16:22 | Emergency (ER) | payer OTHER ==
[2024-03-09 16:41] VITALS: TEMP 98.7
--- NOTE | 2024-03-09 18:16 | ED ---
Eye Problem HPI - General Chief complaint: Eye Problems Stated complaint: Right eye pain Time Seen by Provider: 03/09/24 16:40 Source: patient, RN notes reviewed Mode of arrival: ambulatory Limitations: no limitations - History of Present Illness Initial comments: This is a 63-year-old male presents to the ER for chief complaint of right eye pain and pressure that started yesterday evening. Patient states that he was watching television when the pain started and states that has been worsening over the past day. Patient denies vomiting. Endorses photophobia. Denies contact use or previous ophthalmologic surgeries of the eye. Denies changes in vision such as blurry vision, double vision, decreased visual acuity. He states that he was cutting the grass yesterday morning however denies any obvious foreign bodies into the eye. - Related Data Home Medications Medication Instructions Recorded Confirmed Naproxen 500 mg PO BID 07/23/15 04/10/23 Omeprazole [PriLOSEC] 20 mg PO BID 07/23/15 04/10/23 Aspirin [Adult Low Dose Aspirin EC] 81 mg PO DAILY 04/19/16 04/10/23 Atorvastatin Calcium [Lipitor] 80 mg PO HS 04/04/23 04/10/23 Empagliflozin [Jardiance] 10 mg PO DAILY 04/04/23 04/10/23 Insulin Glargine,Hum.rec.anlog 40 units SQ 04/04/23 04/10/23 [Insulin Glargine Solostar] Loratadine [Claritin] 10 mg PO DAILY 04/04/23 04/10/23 Losartan [Cozaar] 50 mg PO BID 04/04/23 04/10/23 Tamsulosin HCl [Flomax] 0.4 mg PO DAILY 04/04/23 04/10/23 amLODIPine [Norvasc] 10 mg PO DAILY 04/04/23 04/10/23 hydrALAZINE HCL 25 mg PO TID 04/04/23 04/10/23 metFORMIN HCL [Glucophage] 500 mg PO BID 04/04/23 04/10/23 Previous Rx's Medication Instructions Recorded HYDROcodone/APAP 5-325MG [[place] 1 - 2 tab PO Q4HR PRN #6 tab 04/05/23 5-325] Ketorolac [Toradol] 10 mg PO Q6HR PRN #6 tab 04/05/23 Ondansetron [Zofran] 4 mg PO Q6HR PRN #10 tab 04/05/23 cefUROXime axetiL [Ceftin] 500 mg PO BID 4 Days #8 tab 04/10/23 Allergies Allergy/AdvReac Type Severity Reaction Status Date / Time codeine Allergy Hypotension Verified 03/09/24 16:41 lisinopril Allergy Unknown Verified 03/09/24 16:41 morphine Allergy Rash/Hives Verified 03/09/24 16:41 sulfacetamide Allergy Rash/Hives Verified 03/09/24 16:41 [From Sulfamide] hydrocodone AdvReac Flushing Verified 03/09/24 16:41 Review of Systems ROS Statement: Those systems with pertinent positive or pertinent negative responses have been documented in the HPI. ROS Other: All systems not noted in ROS Statement are negative. Past Medical History Past Medical History: Asthma, Diabetes Mellitus, GERD/Reflux, Hypertension, Sleep Apnea/CPAP/BIPAP Additional Past Medical History / Comment(s): seasonal allergies,occas. cough, has cpap, positional apnea. History of Any Multi-Drug Resistant Organisms: None Reported Past Surgical History: Appendectomy Past Anesthesia/Blood Transfusion Reactions: No Reported Reaction Past Psychological History: No Psychological Hx Reported Smoking Status: Never smoker Past Alcohol Use History: Rare Past Drug Use History: None Reported - Past Family History Mother Family Medical History: No Reported History General Exam - General Exam Comments Initial Comments: Visual Physical Exam Vital signs reviewed General: Well-appearing, nontoxic, no acute distress. Head: Normocephalic, atraumatic Eyes: PERRLA, EOMI ENT: Airway patent Chest: Nonlabored breathing Skin: No visual rash, normal skin tone Neuro: Alert and oriented 3 Musculoskeletal: No gross abnormalities Limitations: no limitations General appearance: alert, in no apparent distress Head exam: Present: atraumatic, normocephalic, normal inspection Expanded Eyelids: Normal Inspection: Bilateral Pupils: Regular, Round: Bilateral Sclera/Conjunctival: Injection: Right (superior right edema) Visual acuity (R) = 20/: 30 Visual acuity (L) = 20/: 30 With correction: No IOP (R) in mmH IOP (L) in mmH IOP measured with: Tonopen ENT exam: Present: normal exam, mucous membranes moist Neck exam: Present: normal inspection. Absent: tenderness, meningismus, lymphadenopathy Respiratory exam: Present: normal lung sounds bilaterally. Absent: respiratory distress, wheezes, rales, rhonchi, stridor Cardiovascular Exam: Present: regular rate, normal rhythm, normal heart sounds. Absent: systolic murmur, diastolic murmur, rubs, gallop, clicks GI/Abdominal exam: Present: soft, normal bowel sounds. Absent: distended, tenderness, guarding, rebound, rigid Extremities exam: Present: normal inspection, full ROM, normal capillary refill. Absent: tenderness, pedal edema, joint swelling, calf tenderness Back exam: Present: normal inspection Neurological exam: Present: alert, oriented X3, CN II-XII intact Psychiatric exam: Present: normal affect, normal mood Skin exam: Present: warm, dry, intact, normal color. Absent: rash Course Vital Signs 03/09/24 03/09/24 16:40 20:06 Temperature 98.7 F Pulse Rate 96 80 Respiratory 18 16 Rate Blood Pressure 114/77 111/73 O2 Sat by Pulse 98 97 Oximetry Medical Decision Making - Medical Decision Making Was pt. sent in by a medical professional or institution (, PA, SHOW GIRL, urgent care, hospital, or halfway...) When possible be specific @ -No Did you speak to anyone other than the patient for history (EMS, parent, family, police, friend...)? What history was obtained from this source @ -No Did you review nursing and triage notes (agree or disagree)? Why? @ -I reviewed and agree with nursing and triage notes Were old charts reviewed (outside hosp., previous admission, EMS record, old EKG, old radiological studies, urgent care reports/EKG's, halfway records)? Report findings @ -No old charts were reviewed Differential Diagnosis (chest pain, altered mental status, abdominal pain women, abdominal pain men, vaginal bleeding, weakness, fever, dyspnea, syncope, headache, dizziness, GI bleed, back pain, seizure, CVA, palpatations, mental health, musculoskeletal)? @ -conjunctivitis, glaucoma, corneal abrasion, foreign body in eye, keratitis, this list is not all inclusive EKG interpreted by me (3pts min.). @ -none X-rays interpreted by me (1pt min.). @ -None done CT interpreted by me (1pt min.). @ -None done U/S interpreted by me (1pt. min.). @ -None done What testing was considered but not performed or refused? (CT, X-rays, U/S, labs)? Why? @ -None What meds were considered but not given or refused? Why? @ -None Did you discuss the management of the patient with other professionals (professionals i.e. DrIrma, PA, SHOW GIRL, lab, RT, psych nurse, social sciences professor, manager acute, teacher, debt recovery officer, corrections caseworker)? Give summary @ -No Was smoking cessation discussed for >3mins.? @ -No Was critical care preformed (if so, how long)? @ -No Were there social determinants of health that impacted care today? How? (Homelessness, low income, unemployed, alcoholism, drug addiction, transportation, low edu. Level, literacy, decrease access to med. care, [facility], rehab)? @ -No Was there de-escalation of care discussed even if they declined (Discuss DNR or withdrawal of care, Hospice)? DNR status @ -No What co-morbidities impacted this encounter? (DM, HTN, Smoking, COPD, CAD, Cancer, CVA, ARF, Chemo, Hep., AIDS, mental health diagnosis, sleep apnea, morbid obesity)? @ -None Was patient admitted / discharged? Hospital course, mention meds given and route, prescriptions, significant lab abnormalities, going to OR and other pertinent info. @ -Discharged. 63-year-old male with right eye pain. On examination patient's right eye is noted to be mildly injected. Visual acuity intact bilaterally and eye pressures within normal range. Patient has mild photophobia to the right. Mcintosh lamp examination with direct fluorescein staining there is no signs of corneal abrasion, however there are signs of scleral edema consistent with conjunctivitis after potential foreign body exposure. thorough inspection of the eyes did not reveal foreign body. Patient provided with dose of TobraDex antibiotic and steroid drops in the emergency department instructed to continue antibiotic drops over the next 5 days. All questions answered at bedside and strict return parameters bonilla the patient as well as understanding. Discussed with Dr. French Undiagnosed new problem with uncertain prognosis? @ -No Drug Therapy requiring intensive monitoring for toxicity (Heparin, Nitro, Insulin, Cardizem)? @ -No Were any procedures done? @ -No Diagnosis/symptom? @ -conjunctivitis following likley foreign body in eye, eye irritation Acute, or Chronic, or Acute on Chronic? @ -acute Uncomplicated (without systemic symptoms) or Complicated (systemic symptoms)? @ -uncomplicated Side effects of treatment? @ -No Exacerbation, Progression, or Severe Exacerbation? @ -No Poses a threat to life or bodily function? How? (Chest pain, [place], [place], pneumonia, PE, COPD, DKA, ARF, appy, cholecystitis, CVA, Diverticulitis, Homicidal, Suicidal, threat to staff... and all critical care pts) @ -No Disposition Clinical Impression: Conjunctivitis, Eye irritation Disposition: HOME SELF-CARE Condition: Good Instructions (If sedation given, give patient instructions): Conjunctivitis (ED) Additional Instructions: return to the emergency department for any new or worsening symptoms. Continue to use topical solution on the right eye 2 drops every 6 hours for 3 days. Is patient prescribed a controlled substance at d/c from ED?: No Referrals: [facility],Clinic [Primary Care Provider] - 1-2 days Time of Disposition: 19:49
[2024-03-09] MEDS: FLUORESCEIN STRIPS 1 MG STRIP RIGHT EYE ONE (18:38)
[2024-03-09] MEDS: PROPARACAINE 0.5% OPHTH DROPS 15 ML BTL RIGHT EYE STA (18:38)
[2024-03-09] MEDS: TOBRAMYCIN 0.3% OPHTH DROPS 5 ML BTL RIGHT EYE STA (20:05)
[2024-03-09 20:14] VITALS: BP 111/73; PULSE 80; RESP 16
== END 2024-03-09 20:06 | disposition home or self-care (01) ==
LOC: EC 16:22
DX: H10.9 Unspecified conjunctivitis (principal); Z88.5 Allergy status to narcotic agent; Z88.8 Allergy status to other drugs, medicaments and biological substances
CPT/HCPCS: 99283

== ENCOUNTER 2024-05-15 10:55 | Emergency (ER) | payer OTHER, MEDICARE ==
--- NOTE | 2024-05-15 11:29 | XR ---
EXAMINATION TYPE: XR chest 2V DATE OF EXAM: 05/15/2024 COMPARISON: 12/23/2023 HISTORY: Difficulty breathing TECHNIQUE: Frontal and lateral views of the chest are obtained. FINDINGS: There is no focal air space opacity, pleural effusion, or pneumothorax seen. The cardiac silhouette size is within normal limits. The osseous structures are intact. IMPRESSION: No acute cardiopulmonary process. [facility], Workstation: [email or web address] 05/15/2024 11:27 AM
--- NOTE | 2024-05-15 11:45 | ED ---
General Adult HPI - General Chief complaint: Shortness of Breath Stated complaint: Covid+,FRANCISCO Time Seen by Provider: 05/15/24 11:10 Source: patient, RN notes reviewed, old records reviewed Mode of arrival: ambulatory Limitations: no limitations - History of Present Illness Initial comments: This is a 63-year-old male who presents to the emergency department stating that he has been fatigued had a sore throat and has a little bit of shortness of breath. Patient states that started yesterday he took a COVID test and it was positive. Patient denies any fever but states she has had the chills. Patient denies coughing up any sputum. Patient denies any palpitations. Patient has chest pain. Patient has any back pain. Patient denies any abdominal pain patient [place] nausea vomiting or diarrhea. - Related Data Home Medications Medication Instructions Recorded Confirmed Naproxen 500 mg PO BID 07/23/15 04/10/23 Omeprazole [PriLOSEC] 20 mg PO BID 07/23/15 04/10/23 Aspirin [Adult Low Dose Aspirin EC] 81 mg PO DAILY 04/19/16 04/10/23 Atorvastatin Calcium [Lipitor] 80 mg PO HS 04/04/23 04/10/23 Empagliflozin [Jardiance] 10 mg PO DAILY 04/04/23 04/10/23 Insulin Glargine,Hum.rec.anlog 40 units SQ HS 04/04/23 04/10/23 [Insulin Glargine Solostar] Loratadine [Claritin] 10 mg PO DAILY 04/04/23 04/10/23 Losartan [Cozaar] 50 mg PO BID 04/04/23 04/10/23 Tamsulosin HCl [Flomax] 0.4 mg PO DAILY 04/04/23 04/10/23 amLODIPine [Norvasc] 10 mg PO DAILY 04/04/23 04/10/23 hydrALAZINE HCL 25 mg PO TID 04/04/23 04/10/23 metFORMIN HCL [Glucophage] 500 mg PO BID 04/04/23 04/10/23 Previous Rx's Medication Instructions Recorded HYDROcodone/APAP 5-325MG [[place] 1 - 2 tab PO Q4HR PRN #6 tab 04/05/23 5-325] Ketorolac [Toradol] 10 mg PO Q6HR PRN #6 tab 04/05/23 Ondansetron [Zofran] 4 mg PO Q6HR PRN #10 tab 04/05/23 cefUROXime axetiL [Ceftin] 500 mg PO BID 4 Days #8 tab 04/10/23 Albuterol Inhaler [Ventolin Hfa 1 - 2 puff INHALATION Q6HR PRN #2 05/15/24 Inhaler] each dexAMETHasone [Decadron] 6 mg PO DAILY 5 Days #5 tab 05/15/24 Allergies Allergy/AdvReac Type Severity Reaction Status Date / Time codeine Allergy Hypotension Verified 05/15/24 11:02 lisinopril Allergy Unknown Verified 05/15/24 11:02 morphine Allergy Rash/Hives Verified 05/15/24 11:02 sulfacetamide Allergy Rash/Hives Verified 05/15/24 11:02 [From Sulfamide] hydrocodone AdvReac Flushing Verified 05/15/24 11:02 Review of Systems ROS Statement: Those systems with pertinent positive or pertinent negative responses have been documented in the HPI. ROS Other: All systems not noted in ROS Statement are negative. Past Medical History Past Medical History: Asthma, Diabetes Mellitus, GERD/Reflux, Hypertension, Sleep Apnea/CPAP/BIPAP Additional Past Medical History / Comment(s): seasonal allergies,occas. cough, has cpap, positional apnea. History of Any Multi-Drug Resistant Organisms: None Reported Past Surgical History: Appendectomy Past Anesthesia/Blood Transfusion Reactions: No Reported Reaction Past Psychological History: No Psychological Hx Reported Smoking Status: Never smoker Past Alcohol Use History: Rare Past Drug Use History: None Reported - Past Family History Mother Family Medical History: No Reported History General Exam - General Exam Comments Initial Comments: GENERAL: Patient is well-developed and well-nourished. Patient is nontoxic and well- hydrated and is in mild distress. ENT: Neck is soft and supple. No significant lymphadenopathy is noted. Oropharynx is clear. Moist mucous membranes. Neck has full range of motion without eliciting any pain. EYES: The sclera were anicteric and conjunctiva were pink and moist. Extraocular movements were intact and pupils were equal round and reactive to light. Eyelids were unremarkable. PULMONARY: Unlabored respirations. Good breath sounds bilaterally. Patient has some mild expiratory wheezing. CARDIOVASCULAR: There is a regular rate and rhythm without any murmurs gallops or rubs. ABDOMEN: Soft and nontender with normal bowel sounds. SKIN: Skin is clear with no lesions or rashes and otherwise unremarkable. NEUROLOGIC: Patient is alert and oriented x3. Cranial nerves II through XII are grossly intact. Motor and sensory are also intact. Normal speech, volume and content. Symmetrical smile. MUSCULOSKELETAL: Normal extremities with adequate strength and full range of motion. Patient has 1+ edema bilaterally LYMPHATICS: No significant lymphadenopathy is noted PSYCHIATRIC: Normal psychiatric evaluation. Limitations: no limitations Course Vital Signs 05/15/24 05/15/24 10:58 11:36 Temperature 98.4 F Pulse Rate 99 91 Respiratory 20 Rate Blood Pressure 122/72 O2 Sat by Pulse 99 100 Oximetry Medical Decision Making - Medical Decision Making EKG is interpreted by myself. EKG shows a sinus rhythm at 81 bpm. [place] interval is 197 QRS is 95 QT interval 378 QTc is 415. Patient's EKG shows no ST segment ovation or depression. Was pt. sent in by a medical professional or institution (, PA, KEY WORKER, urgent care, hospital, or fci...) When possible be specific @ -No Did you speak to anyone other than the patient for history (EMS, parent, family, police, friend...)? What history was obtained from this source @ -No Did you review nursing and triage notes (agree or disagree)? Why? @ -I reviewed and agree with nursing and triage notes Were old charts reviewed (outside hosp., previous admission, EMS record, old EKG, old radiological studies, urgent care reports/EKG's, fci records)? Report findings @ -No old charts were reviewed Differential Diagnosis? @ -Differential Dyspnea: Coronary syndrome, arrhythmia, tamponade, asthma, COPD, pulmonary embolism, pneumonia, COVID, pneumothorax, pulmonary effusion, anaphylaxis, diabetic ketoacidosis, flailed chest, pulmonary contusion, diaphragmatic rupture, anemia, neuromuscular, this is not meant to be an all-inclusive list. EKG interpreted by me (3pts min.). @ -As above X-rays interpreted by me (1pt min.). @ -Chest x-ray shows no acute normality CT interpreted by me (1pt min.). @ -None done U/S interpreted by me (1pt. min.). @ -None done What testing was considered but not performed or refused? (CT, X-rays, U/S, labs)? Why? @ -None What meds were considered but not given or refused? Why? @ -None Did you discuss the management of the patient with other professionals (professionals i.e. , PA, KEY WORKER, lab, RT, psych nurse, public health social worker, staff training and development manager, teacher, family preservation officer, caseworker protective services)? Give summary @ -No Was smoking cessation discussed for >3mins.? @ -No Was critical care preformed (if so, how long)? @ -No Were there social determinants of health that impacted care today? How? (Homelessness, low income, unemployed, alcoholism, drug addiction, transporta tion, low edu. Level, literacy, decrease access to med. care, correction, rehab)? @ -No Was there de-escalation of care discussed even if they declined (Discuss DNR or withdrawal of care, Hospice)? DNR status @ -No What co-morbidities impacted this encounter? (DM, HTN, Smoking, COPD, CAD, Cancer, CVA, ARF, Chemo, Hep., AIDS, mental health diagnosis, sleep apnea, morbid obesity)? @ -None Was patient admitted / discharged? Hospital course, mention meds given and route, prescriptions, significant lab abnormalities, going to OR and other pertinent info. @ -Patient received Motrin Tylenol and albuterol inhaler and Decadron and patient also received some IV fluids. I went back in the room after all the lab work was back and he was COVID-positive he stated he felt considerably better and was ready to go home. Undiagnosed new problem with uncertain prognosis? @ -No Drug Therapy requiring intensive monitoring for toxicity (Heparin, Nitro, Insulin, Cardizem)? @ -No Were any procedures done? @ -No Diagnosis/symptom? @ -COVID-19 Acute, or Chronic, or Acute on Chronic? @ -Acute Uncomplicated (without systemic symptoms) or Complicated (systemic symptoms)? @ -Complicated Side effects of treatment? @ -No Exacerbation, Progression, or Severe Exacerbation? @ -No Poses a threat to life or bodily function? How? (Chest pain, [place], [place], pneumonia, PE, COPD, DKA, ARF, appy, cholecystitis, CVA, Diverticulitis, Homicidal, Suicidal, threat to staff... and all critical care pts) @ -No - Lab Data Result diagrams: 05/15/24 11:53 05/15/24 11:53 Lab Results 05/15/24 05/15/24 05/15/24 Range/Units 11:53 11:53 11:53 WBC 9.7 (3.8-10.6) k/uL RBC 4.76 (4.30-5.90) m/uL Hgb 13.6 (13.0-17.5) gm/dL Hct 40.1 (39.0-53.0) % MCV 84.2 (80.0-100.0) fL MCH 28.7 (25.0-35.0) pg MCHC 34.0 (31.0-37.0) g/dL RDW 13.6 (11.5-15.5) % Plt Count 279 (150-450) k/uL MPV 8.1 Neutrophils % 73 % Lymphocytes % 16 % Monocytes % 7 % Eosinophils % 2 % Basophils % 1 % Neutrophils # 7.0 (1.3-7.7) k/uL Lymphocytes # 1.5 (1.0-4.8) k/uL Monocytes # 0.7 (0-1.0) k/uL Eosinophils # 0.2 (0-0.7) k/uL Basophils # 0.0 (0-0.2) k/uL Sodium 140 (137-145) mmol/L Potassium 4.0 (3.5-5.1) mmol/L Chloride 108 H (98-107) mmol/L Carbon Dioxide 24 (22-30) mmol/L Anion Gap 8 mmol/L BUN 22 H (9-20) mg/dL Creatinine 1.43 H (0.66-1.25) mg/dL Est GFR (CKD-EPI)AfAm 59 (>60 ml/min/1.73 sqM) Est GFR (CKD-EPI)NonAf 51 (>60 ml/min/1.73 sqM) Glucose 107 H (74-99) mg/dL Plasma Lactic Acid Ap 1.7 (0.7-2.0) mmol/L Calcium 8.7 (8.4-10.2) mg/dL Magnesium 1.5 L (1.6-2.3) mg/dL Total Bilirubin 1.2 (0.2-1.3) mg/dL AST 28 (17-59) U/L ALT 20 (4-49) U/L Alkaline Phosphatase 93 (38-126) U/L Total Protein 6.4 (6.3-8.2) g/dL Albumin 3.9 (3.5-5.0) g/dL Influenza Type A (PCR) (Not Detectd) Influenza Type B (PCR) (Not Detectd) RSV (PCR) (Not Detectd) SARS-CoV-2 (PCR) (Not Detectd) 05/15/24 Range/Units 11:53 WBC (3.8-10.6) k/uL RBC (4.30-5.90) m/uL Hgb (13.0-17.5) gm/dL Hct (39.0-53.0) % MCV (80.0-100.0) fL MCH (25.0-35.0) pg MCHC (31.0-37.0) g/dL RDW (11.5-15.5) % Plt Count (150-450) k/uL MPV Neutrophils % % Lymphocytes % % Monocytes % % Eosinophils % % Basophils % % Neutrophils # (1.3-7.7) k/uL Lymphocytes # (1.0-4.8) k/uL Monocytes # (0-1.0) k/uL Eosinophils # (0-0.7) k/uL Basophils # (0-0.2) k/uL Sodium (137-145) mmol/L Potassium (3.5-5.1) mmol/L Chloride (98-107) mmol/L Carbon Dioxide (22-30) mmol/L Anion Gap mmol/L BUN (9-20) mg/dL Creatinine (0.66-1.25) mg/dL Est GFR (CKD-EPI)AfAm (>60 ml/min/1.73 sqM) Est GFR (CKD-EPI)NonAf (>60 ml/min/1.73 sqM) Glucose (74-99) mg/dL Plasma Lactic Acid Ap (0.7-2.0) mmol/L Calcium (8.4-10.2) mg/dL Magnesium (1.6-2.3) mg/dL Total Bilirubin (0.2-1.3) mg/dL AST (17-59) U/L ALT (4-49) U/L Alkaline Phosphatase (38-126) U/L Total Protein (6.3-8.2) g/dL Albumin (3.5-5.0) g/dL Influenza Type A (PCR) Not Detected (Not Detectd) Influenza Type B (PCR) Not Detected (Not Detectd) RSV (PCR) Not Detected (Not Detectd) SARS-CoV-2 (PCR) Detected A (Not Detectd) Disposition Clinical Impression: COVID-19 Disposition: HOME SELF-CARE Condition: Good Instructions (If sedation given, give patient instructions): COVID-19 (Coronavirus Disease 2019) (ED) Prescriptions: dexAMETHasone [Decadron] 6 mg PO DAILY 5 Days #5 tab Albuterol Inhaler [Ventolin Hfa Inhaler] 1 - 2 puff INHALATION Q6HR PRN #2 each PRN Reason: Difficulty breathing Is patient prescribed a controlled substance at d/c from ED?: No Referrals: [facility],Clinic [Primary Care Provider] - 1-2 days Time of Disposition: 13:16
[2024-05-15] MEDS: ALBUTEROL HFA INHALER INHALATION STA (12:01)
[2024-05-15] MEDS: ACETAMINOPHEN TAB 500 MG TAB PO STA (12:02)
[2024-05-15] MEDS: KETOROLAC 15 MG/ML 1 ML VIAL IVP STA (12:03)
[2024-05-15] MEDS: SODIUM CHLORIDE 0.9% 500 ML 500 ML IV STA (12:04)
[2024-05-15] MEDS: DEXAMETHASONE SOD PHOSPHATE 10 MG/ML 1 ML VIAL IVP STA (12:04)
[2024-05-15 12:09] LABS: Basophils % (A) 1 %; Eosinophils # (A) 0.2 k/uL (0-0.7); Eosinophils % (A) 2 %; HCT 40.1 % (39.0-53.0); HGB 13.6 gm/dL (13.0-17.5); Lymphocytes # (A) 1.5 k/uL (1.0-4.8); Lymphocytes % (A) 16 %; MCH 28.7 pg (25.0-35.0); MCV 84.2 fL (80.0-100.0); Mean Platelet Volume 8.1; Monocytes # (A) 0.7 k/uL (0-1.0); Monocytes % (A) 7 %; Neutrophils % (A) 73 %; Platelet Count 279 k/uL (150-450); RBC 4.76 m/uL (4.30-5.90); RDW 13.6 % (11.5-15.5); WBC 9.7 k/uL (3.8-10.6)
[2024-05-15 12:14] LABS: ALT 20 U/L (4-49); AST 28 U/L (17-59); African American GFR (CKD) 59 (>60 ml/min/1.73 sqM); Albumin 3.9 g/dL (3.5-5.0); Alkaline Phosphatase 93 U/L (38-126); Anion Gap 8 mmol/L; Blood Urea Nitrogen 22 mg/dL (9-20); Calcium 8.7 mg/dL (8.4-10.2); Carbon Dioxide 24 mmol/L (22-30); Chloride 108 mmol/L (98-107); Glucose 107 mg/dL (74-99); Magnesium 1.5 mg/dL (1.6-2.3); Non-African American GFR(CKD) 51 (>60 ml/min/1.73 sqM); Sodium 140 mmol/L (137-145); Total Bilirubin 1.2 mg/dL (0.2-1.3); Total Protein 6.4 g/dL (6.3-8.2)
[2024-05-15 13:43] VITALS: BP 106/72; PULSE 83; RESP 12; TEMP 98.3
== END 2024-05-15 13:43 | disposition home or self-care (01) ==
LOC: SUPCPDRO 10:55 → EC 10:55
CPT/HCPCS: 36415; 71046; 80053; 83605; 83735; 85025; 87636; 93005; 94640; 96374; 96375; 99285

== ENCOUNTER 2024-05-23 10:02 | Inpatient (IN) | payer OTHER, MEDICARE ==
[2024-05-23] MEDS: SODIUM CHLORIDE 0.9% 1,000 ML IV STA ×2 (11:09→15:14)
[2024-05-23] MEDS: methylPREDNISolone SOD SUCCI 125 MG/2 ML VIAL IV STA (11:09)
[2024-05-23] MEDS: IPRATROPIUM-ALBUTEROL 3 ML NEB INHALATION STA (11:15)
[2024-05-23 11:17] LABS: Basophils % (A) 0 %; Eosinophils % (A) 0 %; HCT 39.7 % (39.0-53.0); HGB 13.6 gm/dL (13.0-17.5); Lymphocytes # (A) 0.7 k/uL (1.0-4.8); Lymphocytes % (A) 4 %; MCH 28.9 pg (25.0-35.0); MCHC 34.3 g/dL (31.0-37.0); MCV 84.1 fL (80.0-100.0); Mean Platelet Volume 8.9; Monocytes # (A) 0.4 k/uL (0-1.0); Monocytes % (A) 2 %; Neutrophils # (A) 14.5 k/uL (1.3-7.7); Neutrophils % (A) 92 %; Platelet Count 236 k/uL (150-450); RBC 4.72 m/uL (4.30-5.90); RDW 13.5 % (11.5-15.5); WBC 15.7 k/uL (3.8-10.6)
[2024-05-23 11:27] LABS: ABG Base Excess 0.6 mmol/L; ABG HCO3 24 mmol/L (21-25); ABG Oxygen Saturation 98.2 % (94-97); ABG PCO2 33 mmHg (35-45); ABG PH 7.47 (7.35-7.45); ABG PO2 105 mmHg (83-108); ABG TCO2 25 mmol/L (19-24); Allen Test Performed? Yes
[2024-05-23 11:28] LABS: INR 1.2 (<1.2); Partial Thromboplastin Time 29.3 sec (22.0-30.0); Prothrombin Time 12.8 sec (10.0-12.5)
[2024-05-23 11:41] LABS: ALT 16 U/L (4-49); AST 22 U/L (17-59); African American GFR (CKD) 48 (>60 ml/min/1.73 sqM); Albumin 2.9 g/dL (3.5-5.0); Alkaline Phosphatase 110 U/L (38-126); Anion Gap 8 mmol/L; Blood Urea Nitrogen 28 mg/dL (9-20); Calcium 7.8 mg/dL (8.4-10.2); Carbon Dioxide 22 mmol/L (22-30); Chloride 107 mmol/L (98-107); Glucose 125 mg/dL (74-99); Magnesium 1.4 mg/dL (1.6-2.3); Non-African American GFR(CKD) 41 (>60 ml/min/1.73 sqM); Potassium 3.8 mmol/L (3.5-5.1); Sodium 137 mmol/L (137-145); Total Bilirubin 1.1 mg/dL (0.2-1.3); Total Protein 5.4 g/dL (6.3-8.2)
[2024-05-23 11:46] LABS: NT-Pro-B-Type Natriuretic Pept 253 pg/mL
--- NOTE | 2024-05-23 11:56 | XR ---
EXAMINATION TYPE: XR chest 2V DATE OF EXAM: 05/23/2024 11:50 AM COMPARISON: Chest radiographs from 05/15/2024 TECHNIQUE: XR chest 2V Frontal and lateral views of the chest. CLINICAL INDICATION:Male, 63 years old with history of difficulty breathing; FINDINGS: Lungs/Pleura: No pleural effusion or pneumothorax. Development of bilateral mid and lower lung patchy consolidative opacities. Pulmonary vascularity: Unremarkable. Heart/mediastinum: Cardiomediastinal silhouette is unremarkable. Musculoskeletal: No acute osseous pathology. IMPRESSION: Development of bilateral mid and lower lung patchy consolidative opacities concerning for pneumonia. [facility], , 05/23/2024 11:53 AM
--- NOTE | 2024-05-23 12:12 | ED ---
SOB HPI - General Chief Complaint: Shortness of Breath Stated Complaint: FRANCISCO,Cough Time Seen by Provider: 05/23/24 10:11 Source: patient, RN notes reviewed Mode of arrival: wheelchair Limitations: no limitations - History of Present Illness MD Complaint: shortness of breath Onset/Timin -: days(s) - Related Data Home Medications Medication Instructions Recorded Confirmed Naproxen 500 mg PO BID PRN 07/23/15 05/23/24 Omeprazole [PriLOSEC] 20 mg PO BID 07/23/15 05/23/24 Aspirin [Adult Low Dose Aspirin EC] 81 mg PO DAILY 04/19/16 05/23/24 Atorvastatin Calcium [Lipitor] 80 mg PO HS 04/04/23 05/23/24 Loratadine [Claritin] 10 mg PO DAILY 04/04/23 05/23/24 Losartan [Cozaar] 50 mg PO BID 04/04/23 05/23/24 amLODIPine [Norvasc] 10 mg PO DAILY 04/04/23 05/23/24 hydrALAZINE HCL 25 mg PO BID 04/04/23 05/23/24 Insulin Aspart [NovoLOG Flexpen] 10 units SQ AC-TID 05/23/24 05/23/24 Insulin Glargine,Hum.rec.anlog 30 units SQ BID 05/23/24 05/23/24 [Lantus Solostar Pen] Montelukast Sodium 10 mg PO DAILY 05/23/24 05/23/24 Potassium Citrate [Potassium 20 meq PO BID 05/23/24 05/23/24 Citrate ER] hydroCHLOROthiazide [Hydrodiuril] 25 mg PO DAILY 05/23/24 05/23/24 metFORMIN HCL ER [Glucophage XR] 500 mg PO BID 05/23/24 05/23/24 Allergies Allergy/AdvReac Type Severity Reaction Status Date / Time codeine Allergy Hypotension Verified 05/23/24 14:37 lisinopril Allergy Unknown Verified 05/23/24 14:37 morphine Allergy Rash/Hives Verified 05/23/24 14:37 sulfacetamide Allergy Rash/Hives Verified 05/23/24 14:37 [From Sulfamide] hydrocodone AdvReac Flushing Verified 05/23/24 14:37 Review of Systems ROS Statement: Those systems with pertinent positive or pertinent negative responses have been documented in the HPI. ROS Other: All systems not noted in ROS Statement are negative. Past Medical History Past Medical History: Asthma, Diabetes Mellitus, GERD/Reflux, Hypertension, Sle ep Apnea/CPAP/BIPAP Additional Past Medical History / Comment(s): seasonal allergies,occas. cough, has cpap, positional apnea. History of Any Multi-Drug Resistant Organisms: None Reported Past Surgical History: Appendectomy Past Anesthesia/Blood Transfusion Reactions: No Reported Reaction Past Psychological History: No Psychological Hx Reported Smoking Status: Never smoker Past Alcohol Use History: Rare Past Drug Use History: None Reported - Past Family History Mother Family Medical History: No Reported History General Exam Limitations: no limitations Course Vital Signs 05/23/24 05/23/24 05/23/24 10:14 10:30 11:00 Temperature 98.2 F 99.9 F H Pulse Rate 90 92 88 Respiratory 24 18 19 Rate Blood Pressure 78/62 104/70 103/78 O2 Sat by Pulse 93 L 91 L 94 L Oximetry 05/23/24 05/23/24 05/23/24 11:15 11:24 11:30 Temperature Pulse Rate 89 86 97 Respiratory 23 Rate Blood Pressure 98/65 O2 Sat by Pulse 95 Oximetry 05/23/24 05/23/24 05/23/24 12:00 12:30 15:15 Temperature 98.9 F Pulse Rate 96 99 86 Respiratory 24 24 20 Rate Blood Pressure 93/54 97/55 103/56 O2 Sat by Pulse 94 L 93 L 95 Oximetry Medical Decision Making - Medical Decision Making Was pt. sent in by a medical professional or institution (, PA, BANANA GRADER, urgent care, hospital, or group home...) When possible be specific @ -[No] Did you speak to anyone other than the patient for history (EMS, parent, family, police, friend...)? What history was obtained from this source @ -[No] Did you review nursing and triage notes (agree or disagree)? Why? @ -[I reviewed and agree with nursing and triage notes] Were old charts reviewed (outside hosp., previous admission, EMS record, old EKG, old radiological studies, urgent care reports/EKG's, group home records)? Report findings @ -[No old charts were reviewed] Differential Diagnosis (chest pain, altered mental status, abdominal pain women, abdominal pain men, vaginal bleeding, weakness, fever, dyspnea, syncope, headache, dizziness, GI bleed, back pain, seizure, CVA, palpatations, mental he alth, musculoskeletal)? @ -Differential Dyspnea: Coronary syndrome, arrhythmia, tamponade, asthma, COPD, pulmonary embolism, pneumonia, pneumothorax, pulmonary effusion, anaphylaxis, diabetic ketoacidosis, flailed chest, pulmonary contusion, diaphragmatic rupture, anemia, neuromuscular, this is not meant to be an all-inclusive list. EKG interpreted by me (3pts min.). @ -Sinus rhythm with solitary PVC X-rays interpreted by me (1pt min.). @ -Chest x-ray shows infiltrates indicating possible pneumonia CT interpreted by me (1pt min.). @ -[None done] U/S interpreted by me (1pt. min.). @ -[None done] What testing was considered but not performed or refused? (CT, X-rays, U/S, labs)? Why? @ -[None] What meds were considered but not given or refused? Why? @ -[None] Did you discuss the management of the patient with other professionals (professionals i.e. , PA, BANANA GRADER, lab, RT, psych nurse, social secretary, heater room helper, teacher, aviation safety officer, skilled nursing case manager)? Give summary @ -[No] Was smoking cessation discussed for >3mins.? @ -[No] Was critical care preformed (if so, how long)? @ -[No] Were there social determinants of health that impacted care today? How? (Homelessness, low income, unemployed, alcoholism, drug addiction, transportation, low edu. Level, literacy, decrease access to med. care, group home, rehab)? @ -[No] Was there de-escalation of care discussed even if they declined (Discuss DNR or withdrawal of care, Hospice)? DNR status @ -[No] What co-morbidities impacted this encounter? (DM, HTN, Smoking, COPD, CAD, Cancer, CVA, ARF, Chemo, Hep., AIDS, mental health diagnosis, sleep apnea, morbid obesity)? @ -[None] Was patient admitted / discharged? Hospital course, mention meds given and route, prescriptions, significant lab abnormalities, going to OR and other pertinent info. @ -Admitted. Patient tested positive for COVID-19. Chest x-ray shows indications of pneumonia. Patient notes minor relief with Solu-Medrol. 2 g Rocephin IV given along with 2000 mL normal saline to stabilize blood pressure. Spoke to admitting physician who advised dexamethasone IV 6 mg once daily. Undiagnosed new problem with uncertain prognosis? @ -[No] Drug Therapy requiring intensive monitoring for toxicity (Heparin, Nitro, Insulin, Cardizem)? @ -[No] Were any procedures done? @ -[No] Diagnosis/symptom? @ -[default] Acute, or Chronic, or Acute on Chronic? @ -Acute Uncomplicated (without systemic symptoms) or Complicated (systemic symptoms)? @ -Complicated Side effects of treatment? @ -[No] Exacerbation, Progression, or Severe Exacerbation? @ -[No] Poses a threat to life or bodily function? How? (Chest pain, [place], [place], pneumonia, PE, COPD, DKA, ARF, appy, cholecystitis, CVA, Diverticulitis, Homicidal, Suicidal, threat to staff... and all critical care pts) @ -Dyspnea, hypertension, hypoxia, pneumonia with COVID-19 - Lab Data Result diagrams: 05/23/24 11:05 05/23/24 11:05 Lab Results 05/23/24 05/23/24 05/23/24 Range/Units 11:05 11:05 11:05 WBC 15.7 H (3.8-10.6) k/uL RBC 4.72 (4.30-5.90) m/uL Hgb 13.6 (13.0-17.5) gm/dL Hct 39.7 (39.0-53.0) % MCV 84.1 (80.0-100.0) fL MCH 28.9 (25.0-35.0) pg MCHC 34.3 (31.0-37.0) g/dL RDW 13.5 (11.5-15.5) % Plt Count 236 (150-450) k/uL MPV 8.9 Neutrophils % 92 % Lymphocytes % 4 % Monocytes % 2 % Eosinophils % 0 % Basophils % 0 % Neutrophils # 14.5 H (1.3-7.7) k/uL Lymphocytes # 0.7 L (1.0-4.8) k/uL Monocytes # 0.4 (0-1.0) k/uL Eosinophils # 0.0 (0-0.7) k/uL Basophils # 0.0 (0-0.2) k/uL PT 12.8 H (10.0-12.5) sec INR 1.2 H (<1.2) APTT 29.3 (22.0-30.0) sec Sample Site ABG pH (7.35-7.45) ABG pCO2 (35-45) mmHg ABG pO2 (83-108) mmHg ABG HCO3 (21-25) mmol/L ABG Total CO2 (19-24) mmol/L ABG O2 Saturation (94-97) % ABG Base Excess mmol/L Mk Test Hemoglobin (13.0-17.5) gm/dL FiO2 % Sodium 137 (137-145) mmol/L Potassium 3.8 (3.5-5.1) mmol/L Chloride 107 (98-107) mmol/L Carbon Dioxide 22 (22-30) mmol/L Anion Gap 8 mmol/L BUN 28 H (9-20) mg/dL Creatinine 1.71 H (0.66-1.25) mg/dL Est GFR (CKD-EPI)AfAm 48 (>60 ml/min/1.73 sqM) Est GFR (CKD-EPI)NonAf 41 (>60 ml/min/1.73 sqM) Glucose 125 H (74-99) mg/dL Plasma Lactic Acid Ap (0.7-2.0) mmol/L Calcium 7.8 L (8.4-10.2) mg/dL Magnesium 1.4 L (1.6-2.3) mg/dL Total Bilirubin 1.1 (0.2-1.3) mg/dL AST 22 (17-59) U/L ALT 16 (4-49) U/L Alkaline Phosphatase 110 (38-126) U/L Lactate Dehydrogenase (120-246) U/L Troponin I (0.000-0.034) ng/mL C-Reactive Protein 39.7 H (<1.0) mg/dL NT-Pro-B Natriuret Pep 253 pg/mL Total Protein 5.4 L (6.3-8.2) g/dL Albumin 2.9 L (3.5-5.0) g/dL Influenza Type A (PCR) (Not Detectd) Influenza Type B (PCR) (Not Detectd) RSV (PCR) (Not Detectd) SARS-CoV-2 (PCR) (Not Detectd) 05/23/24 05/23/24 05/23/24 Range/Units 11:05 11:05 11:05 WBC (3.8-10.6) k/uL RBC (4.30-5.90) m/uL Hgb (13.0-17.5) gm/dL Hct (39.0-53.0) % MCV (80.0-100.0) fL MCH (25.0-35.0) pg MCHC (31.0-37.0) g/dL RDW (11.5-15.5) % Plt Count (150-450) k/uL MPV Neutrophils % % Lymphocytes % % Monocytes % % Eosinophils % % Basophils % % Neutrophils # (1.3-7.7) k/uL Lymphocytes # (1.0-4.8) k/uL Monocytes # (0-1.0) k/uL Eosinophils # (0-0.7) k/uL Basophils # (0-0.2) k/uL PT (10.0-12.5) sec INR (<1.2) APTT (22.0-30.0) sec Sample Site ABG pH (7.35-7.45) ABG pCO2 (35-45) mmHg ABG pO2 (83-108) mmHg ABG HCO3 (21-25) mmol/L ABG Total CO2 (19-24) mmol/L ABG O2 Saturation (94-97) % ABG Base Excess mmol/L Km Test Hemoglobin (13.0-17.5) gm/dL FiO2 % Sodium (137-145) mmol/L Potassium (3.5-5.1) mmol/L Chloride (98-107) mmol/L Carbon Dioxide (22-30) mmol/L Anion Gap mmol/L BUN (9-20) mg/dL Creatinine (0.66-1.25) mg/dL Est GFR (CKD-EPI)AfAm (>60 ml/min/1.73 sqM) Est GFR (CKD-EPI)NonAf (>60 ml/min/1.73 sqM) Glucose (74-99) mg/dL Plasma Lactic Acid Ap 2.0 (0.7-2.0) mmol/L Calcium (8.4-10.2) mg/dL Magnesium (1.6-2.3) mg/dL Total Bilirubin (0.2-1.3) mg/dL AST (17-59) U/L ALT (4-49) U/L Alkaline Phosphatase (38-126) U/L Lactate Dehydrogenase (120-246) U/L Troponin I <0.012 (0.000-0.034) ng/mL C-Reactive Protein (<1.0) mg/dL NT-Pro-B Natriuret Pep pg/mL Total Protein (6.3-8.2) g/dL Albumin (3.5-5.0) g/dL Influenza Type A (PCR) Not Detected (Not Detectd) Influenza Type B (PCR) Not Detected (Not Detectd) RSV (PCR) Not Detected (Not Detectd) SARS-CoV-2 (PCR) Detected A (Not Detectd) 05/23/24 05/23/24 Range/Units 11:05 11:24 WBC (3.8-10.6) k/uL RBC (4.30-5.90) m/uL Hgb (13.0-17.5) gm/dL Hct (39.0-53.0) % MCV (80.0-100.0) fL MCH (25.0-35.0) pg MCHC (31.0-37.0) g/dL RDW (11.5-15.5) % Plt Count (150-450) k/uL MPV Neutrophils % % Lymphocytes % % Monocytes % % Eosinophils % % Basophils % % Neutrophils # (1.3-7.7) k/uL Lymphocytes # (1.0-4.8) k/uL Monocytes # (0-1.0) k/uL Eosinophils # (0-0.7) k/uL Basophils # (0-0.2) k/uL PT (10.0-12.5) sec INR (<1.2) APTT (22.0-30.0) sec Sample Site Left Radial ABG pH 7.47 H (7.35-7.45) ABG pCO2 33 L (35-45) mmHg ABG pO2 105 (83-108) mmHg ABG HCO3 24 (21-25) mmol/L ABG Total CO2 25 H (19-24) mmol/L ABG O2 Saturation 98.2 H (94-97) % ABG Base Excess 0.6 mmol/L Mk Test Yes Hemoglobin 12.9 L (13.0-17.5) gm/dL FiO2 28 % Sodium (137-145) mmol/L Potassium (3.5-5.1) mmol/L Chloride (98-107) mmol/L Carbon Dioxide (22-30) mmol/L Anion Gap mmol/L BUN (9-20) mg/dL Creatinine (0.66-1.25) mg/dL Est GFR (CKD-EPI)AfAm (>60 ml/min/1.73 sqM) Est GFR (CKD-EPI)NonAf (>60 ml/min/1.73 sqM) Glucose (74-99) mg/dL Plasma Lactic Acid Ap (0.7-2.0) mmol/L Calcium (8.4-10.2) mg/dL Magnesium (1.6-2.3) mg/dL Total Bilirubin (0.2-1.3) mg/dL AST (17-59) U/L ALT (4-49) U/L Alkaline Phosphatase (38-126) U/L Lactate Dehydrogenase 357 H (120-246) U/L Troponin I (0.000-0.034) ng/mL C-Reactive Protein (<1.0) mg/dL NT-Pro-B Natriuret Pep pg/mL Total Protein (6.3-8.2) g/dL Albumin (3.5-5.0) g/dL Influenza Type A (PCR) (Not Detectd) Influenza Type B (PCR) (Not Detectd) RSV (PCR) (Not Detectd) SARS-CoV-2 (PCR) (Not Detectd) Disposition Clinical Impression: Hypoxia, Pneumonia, COVID-19, Hypotension Disposition: ADMITTED IP TO THIS HOSP Condition: Serious Is patient prescribed a controlled substance at d/c from ED?: No Time of Disposition: 13:02 Decision Date: 05/23/24 Decision Time: 13:02
[2024-05-23 12:45] LABS: C Reactive Protein 39.7 mg/dL (<1.0)
[2024-05-23] MEDS ORDERED: PNEUMONIA PROTOCOL UTILIZED 1 EACH MISC PO PRN (13:07)
[2024-05-23] MEDS ORDERED: ETODOLAC 400 MG TAB PO PRN (13:23)
[2024-05-23] MEDS ORDERED: ONDANSETRON 4 MG TAB PO PRN (13:23)
[2024-05-23] MEDS ORDERED: HYDROcodone/APAP 5-325MG 1 EACH TAB PO PRN (13:23)
[2024-05-23] MEDS ORDERED: NALOXONE 0.4 MG/ML 1 ML VIAL IV PRN (14:02)
[2024-05-23] MEDS ORDERED: ACETAMINOPHEN TAB 325 MG TAB PO PRN (14:02)
[2024-05-23] MEDS ORDERED: DEXTROSE 50% SYRINGE 50 ML IVP PRN ×2 (14:09)
[2024-05-23] MEDS: DEXAMETHASONE SOD PHOSPHATE 10 MG/ML 1 ML VIAL IVP SCH (14:50)
[2024-05-23] MEDS: ENOXAPARIN 40 MG/0.4 ML SYRINGE SQ SCH (15:16)
[2024-05-23] MEDS: SODIUM CHLORIDE 0.9% 500 ML 500 ML IV ONE (15:16)
[2024-05-23] MEDS: cefTRIAXone IN SWFI 1,000 MG/10 ML SYRINGE IVP STA (15:17)
[2024-05-23] MEDS: AZITHROMYCIN 500 MG in SODIUM CHLORIDE 0.9% 250 ML IVPB SCH (15:24)
[2024-05-23] MEDS: MAGNESIUM SULFATE-D5W PMX 1 GM in DEXTROSE/WATER 1 100ML.BAG IVPB SCH (15:26)
[2024-05-23] MEDS: cefTRIAXone 250 MG VIAL IV STA (15:28)
--- NOTE | 2024-05-23 15:59 | P.HPIM ---
History of Present Illness H&P Date: 05/23/24 History of present illness; Alan Rogers is a 63-year-old male with a past medical history of hyp ertension, type 2 diabetes, hyperlipidemia, GERD, BPH, JENIFFER who presents for progressive productive cough and shortness of breath. Patient states his symptoms began 11 days ago with cough with sputum production nonbloody yellow- whitish in nature. He had shortness of breath and cough while at rest and with activity. At that time he visited the ER and was subsequently discharged with home dexamethasone. Over the next few days the patient's symptoms improved, following which they began worsening again. During this time. He states that he had tried DayQuil, NyQuil and acetaminophen without relief. He was also having symptoms of fever max at 102.6 degrees 2 days ago, fatigue, myalgia, weakness, headache, dizziness, chest congestion. Initial lab work done in the ER showed WBC 15.7, hemoglobin 13.6, platelets 236, PT 12.8, INR 1.2, ABG findings of pH 7.47, pCO2 33, pO2 105 at FiO2 of 28, sodium 137, potassium 3.8, BUN 28, creatinine 1.71, glucose 125, calcium 7.8, magnesium 1.4, troponin negative, CRP 39.7, BNP 253, viral panel positive COVID, otherwise negative. Chest x-ray done independently interpreted in the ER showed bilateral mid and lower patchy opacities. Patient admitted to internal medicine service for treatment of acute hypoxic respiratory distress and sepsis. REVIEW OF SYSTEMS: All Systems reviewed, pertinent positives and negatives noted in HPI. All other symptoms are negative. The rest of the 14-point review of systems is negative. PHYSICAL EXAMINATION: Vitals reviewed GENERAL: The patient is alert and oriented x3, mild acute distress. Well developed, well nourished. HEENT: Pupils are round and equally reacting to light. EOMI. No scleral icterus. No conjunctival pallor. Normocephalic, atraumatic. No pharyngeal erythema. No thyromegaly. CARDIOVASCULAR: S1 and S2 present. No murmurs, rubs, or gallops. PULMONARY: Decreased breath sounds bilaterally worse on left with congestion and crackling. ABDOMEN: Soft, nontender, nondistended, normoactive bowel sounds. No palpable organomegaly. MUSCULOSKELETAL: No apparent joint swelling and deformities. EXTREMITIES: No apparent cyanosis, clubbing, or pedal edema. NEUROLOGICAL: Gross neurological examination did not reveal any focal deficits. SKIN: No apparent rashes. Labs reviewed Imaging reviewed Assessment and plan Alan Rogers is a 63-year-old male with a past medical history of h ypertension, type 2 diabetes, hyperlipidemia, GERD, BPH, JENIFFER who presents for progressive productive cough and shortness of breath. # Acute hypoxic respiratory failure Acute COVID-19 pneumonia Sepsis secondary to suspected bacterial pneumonia #Respiratory alkalosis pH 7.47, pCO2 33, pO2 105 at FiO2 of 28 COVID-19 positive Suspicion for contributing bacterial pneumonia Begin dexamethasone IV 6 mg daily Begin azithromycin 500 mg IV daily, ceftriaxone 2 g IV daily Blood and sputum culture ordered Ordered procalcitonin Monitor CRP, LDH Continue O2, maintain greater than 92% saturation Pulmonology consulted and due to failure of outpatient treatment Initial WBC 15.7, BP 78/62, elevated respiratory rate Patient given NS 2.5 L Holding antihypertensive for now Continue to monitor #Hypomagnesemia Given magnesium sulfate 2 mg Continue monitor Chronic medical problems #Diabetes mellitus type 2 Holding oral medications Begin Accu-Cheks and low-dose sliding scale, monitor for hypoglycemia Continue home long-acting insulin 30 units twice daily Pending HbA1c #CKD stage IIIb Near baseline creatinine Continue to monitor #JENIFFER Order CPAP #Hypertension Holding home medications for now #Hyperlipidemia Continue Lipitor 80 mg at bedtime #GERD Continue pantoprazole 40 mg #Seasonal allergies Continue montelukast 10 mg F: P.o. E: Replete as needed N: Consistent carb E: None DVT ppx: Subq Lovenox Code status: Full code Anticipated discharge place: Pending clinical course Anticipated discharge time: Pending clinical course Monitor vital signs Continue with symptomatic treatment. Further recommendations as per clinical course of the patient Dictation was produced using [employer] dictation software. Please excuse any grammatical, word or spelling errors. The patient is admitted with an anticipated greater than 2 midnight stay as inpatient status for evaluation of acute hypoxic respiratory failure. A total of 65 minutes was spent on the care of this complex patient more than 50% of the time was spent in counseling and care coordination. I have seen and evaluated the patient today. Discussed with the resident and agree with the residents finding and plan as documented in the resident's note. Changes highlighted in blue font. Past Medical History Past Medical History: Asthma, Diabetes Mellitus, GERD/Reflux, Hypertension, Sleep Apnea/CPAP/BIPAP Additional Past Medical History / Comment(s): seasonal allergies,occas. cough, has cpap, positional apnea. History of Any Multi-Drug Resistant Organisms: None Reported Past Surgical History: Appendectomy Past Anesthesia/Blood Transfusion Reactions: No Reported Reaction Past Psychological History: No Psychological Hx Reported Smoking Status: Never smoker Past Alcohol Use History: Rare Past Drug Use History: None Reported - Past Family History Mother Family Medical History: No Reported History Medications and Allergies Home Medications Medication Instructions Recorded Confirmed Type Naproxen 500 mg PO BID PRN 07/23/15 05/23/24 History Omeprazole [PriLOSEC] 20 mg PO BID 07/23/15 05/23/24 History Aspirin [Adult Low Dose Aspirin EC] 81 mg PO DAILY 04/19/16 05/23/24 History Atorvastatin Calcium [Lipitor] 80 mg PO HS 04/04/23 05/23/24 History Loratadine [Claritin] 10 mg PO DAILY 04/04/23 05/23/24 History Losartan [Cozaar] 50 mg PO BID 04/04/23 05/23/24 History amLODIPine [Norvasc] 10 mg PO DAILY 04/04/23 05/23/24 History hydrALAZINE HCL 25 mg PO BID 04/04/23 05/23/24 History Insulin Aspart [NovoLOG Flexpen] 10 units SQ AC-TID 05/23/24 05/23/24 History Insulin Glargine,Hum.rec.anlog 30 units SQ BID 05/23/24 05/23/24 History [Lantus Solostar Pen] Montelukast Sodium 10 mg PO DAILY 05/23/24 05/23/24 History Potassium Citrate [Potassium 20 meq PO BID 05/23/24 05/23/24 History Citrate ER] hydroCHLOROthiazide [Hydrodiuril] 25 mg PO DAILY 05/23/24 05/23/24 History metFORMIN HCL ER [Glucophage XR] 500 mg PO BID 05/23/24 05/23/24 History Allergies Allergy/AdvReac Type Severity Reaction Status Date / Time codeine Allergy Hypotension Verified 05/23/24 14:37 lisinopril Allergy Unknown Verified 05/23/24 14:37 morphine Allergy Rash/Hives Verified 05/23/24 14:37 sulfacetamide Allergy Rash/Hives Verified 05/23/24 14:37 [From Sulfamide] hydrocodone AdvReac Flushing Verified 05/23/24 14:37 Physical Exam Vitals: Vital Signs Temp Pulse Resp BP Pulse Ox 05/23/24 12:30 99 24 97/55 93 L 05/23/24 12:00 96 24 93/54 94 L 05/23/24 11:30 97 23 98/65 95 05/23/24 11:24 86 05/23/24 11:15 89 05/23/24 11:00 88 19 103/78 94 L 05/23/24 10:30 99.9 F H 92 18 104/70 91 L 05/23/24 10:14 98.2 F 90 24 78/62 93 L Intake and Output 05/23/24 05/23/24 05/23/24 06:59 14:59 22:59 Other: Weight 122.47 kg Results CBC & Chem 7: 05/23/24 11:05 05/23/24 11:05 Labs: Abnormal Lab Results - Last 24 Hours (Table) 05/23/24 05/23/24 05/23/24 Range/Units 11:05 11:05 11:05 WBC 15.7 H (3.8-10.6) k/uL Neutrophils # 14.5 H (1.3-7.7) k/uL Lymphocytes # 0.7 L (1.0-4.8) k/uL PT 12.8 H (10.0-12.5) sec INR 1.2 H (<1.2) ABG pH (7.35-7.45) ABG pCO2 (35-45) mmHg ABG Total CO2 (19-24) mmol/L ABG O2 Saturation (94-97) % Hemoglobin (13.0-17.5) gm/dL BUN 28 H (9-20) mg/dL Creatinine 1.71 H (0.66-1.25) mg/dL Glucose 125 H (74-99) mg/dL Calcium 7.8 L (8.4-10.2) mg/dL Magnesium 1.4 L (1.6-2.3) mg/dL Lactate Dehydrogenase (120-246) U/L C-Reactive Protein 39.7 H (<1.0) mg/dL Total Protein 5.4 L (6.3-8.2) g/dL Albumin 2.9 L (3.5-5.0) g/dL SARS-CoV-2 (PCR) (Not Detectd) 05/23/24 05/23/24 05/23/24 Range/Units 11:05 11:05 11:24 WBC (3.8-10.6) k/uL Neutrophils # (1.3-7.7) k/uL Lymphocytes # (1.0-4.8) k/uL PT (10.0-12.5) sec INR (<1.2) ABG pH 7.47 H (7.35-7.45) ABG pCO2 33 L (35-45) mmHg ABG Total CO2 25 H (19-24) mmol/L ABG O2 Saturation 98.2 H (94-97) % Hemoglobin 12.9 L (13.0-17.5) gm/dL BUN (9-20) mg/dL Creatinine (0.66-1.25) mg/dL Glucose (74-99) mg/dL Calcium (8.4-10.2) mg/dL Magnesium (1.6-2.3) mg/dL Lactate Dehydrogenase 357 H (120-246) U/L C-Reactive Protein (<1.0) mg/dL Total Protein (6.3-8.2) g/dL Albumin (3.5-5.0) g/dL SARS-CoV-2 (PCR) Detected A (Not Detectd)
[2024-05-23] MEDS ORDERED: hydrALAZINE HCL 25 MG TAB PO SCH ×2 (16:00→21:00)
[2024-05-23 17:50] LABS: Glucose,Whole Blood 173 mg/dL (70-110)
[2024-05-23] MEDS: INSULIN ASPART (NovoLOG) 100 UNIT/ML VIAL SQ SCH (18:10)
[2024-05-23 19:51] LABS: Glucose,Whole Blood 217 mg/dL (70-110)
[2024-05-23] MEDS ORDERED: INSULIN DETEMIR (LEVEMIR) 100 UNIT/ML SYR SQ SCH (21:00)
[2024-05-23] MEDS ORDERED: LOSARTAN 50 MG TAB PO SCH (21:00)
[2024-05-23] MEDS ORDERED: metFORMIN 500 MG TAB PO SCH (21:00)
[2024-05-23] MEDS ORDERED: NON FORMULARY DRUG (Cefuroxime Axetil [Ceftin] 500 MG Tablet) PO SCH (21:00)
[2024-05-23 23:00] LABS: Glucose,Whole Blood 247 mg/dL (70-110)
[2024-05-23] MEDS: ATORVASTATIN 80 MG TAB PO SCH (23:20)
[2024-05-23] MEDS: INSULIN DETEMIR (LEVEMIR) 100 UNIT/ML SYR SQ SCH (23:21)
[2024-05-23] MEDS: PANTOPRAZOLE 40 MG TABLET PO SCH (23:22)
[2024-05-24] MEDS: BENZOCAINE/MENTHOL LOZENG 1 EACH LOZENGE MUCOUS MEM PRN (00:06)
[2024-05-24 06:53] LABS: Glucose,Whole Blood 189 mg/dL (70-110)
[2024-05-24] MEDS ORDERED: TAMSULOSIN 0.4 MG CAP.ER.24H PO SCH (09:00)
[2024-05-24] MEDS ORDERED: amLODIPine 10 MG TAB PO SCH (09:00)
[2024-05-24] MEDS ORDERED: DAPAGLIFLOZIN PROPANEDIOL 5 MG TABLET PO SCH (09:00)
--- NOTE | 2024-05-24 09:01 | XR ---
EXAMINATION TYPE: XR chest 1V portable DATE OF EXAM: 05/24/2024 COMPARISON: 05/23/2024 HISTORY: Difficulty breathing TECHNIQUE: Single frontal view of the chest is obtained. FINDINGS: The scattered multifocal airspace consolidative opacities are unchanged compared to previous. The fin dings suggest acute pneumonia or pulmonary edema. The heart is mildly prominent in size but this may be normal for the portable AP technique. Pulmonary vasculature is not congested There is no pneumothorax. There is no large pleural effusion. The osseous structures are intact IMPRESSION: Acute cardiopulmonary disease bilaterally with no significant interval change. [facility], , 05/24/2024 8:58 AM
[2024-05-24 09:17] LABS: ALT 17 U/L (10-49); AST 19 U/L (14-35); Albumin 2.8 g/dL (3.8-4.9); Albumin/Globulin Ratio 1.27 Ratio (1.60-3.17); Alkaline Phosphatase 99 U/L (41-126); BUN/Creat Ratio 19.14 Ratio (12.00-20.00); Blood Urea Nitrogen 26.8 mg/dL (9.0-27.0); Calcium 7.4 mg/dL (8.7-10.3); Carbon Dioxide 21.9 mmol/L (21.6-31.8); Chloride 106 mmol/L (96-109); Globulin 2.2 g/dL (1.6-3.3); Glucose 230 mg/dL (70-110); LDH 279 U/L (120-246); Magnesium 2.2 mg/dL (1.5-2.4); Phosphorus 2.9 mg/dL (2.4-5.1); Potassium 3.9 mmol/L (3.5-5.5); Sodium 140 mmol/L (135-145); Total Bilirubin 0.3 mg/dL (0.3-1.2)
[2024-05-24] MEDS: LORATADINE 10 MG TAB PO SCH (10:18)
[2024-05-24] MEDS: MONTELUKAST 10 MG TAB PO SCH (10:19)
[2024-05-24] MEDS: ASPIRIN 81 MG PO SCH (10:20)
[2024-05-24 11:25] LABS: Glucose,Whole Blood 368 mg/dL (70-110)
--- NOTE | 2024-05-24 11:50 | P.CNPUL ---
History of Present Illness Consult date: 05/24/24 Requesting physician: Ajay Mehta Reason for consult: dyspnea, abnormal CXR/CT Chief complaint: Shortness of breath, cough, congestion History of present illness: This is a pleasant 63-year-old male patient with a known history of obesity, obstructive sleep apnea, diabetes mellitus, hypertension, hyperlipidemia, benign prostatic hyperplasia who follows at the [facility] for his primary care needs. Approximately 10 days ago he had developed shortness of breath cough and congestion and was diagnosed with COVID-19. He was here in the emergency department on 05/15/2024. He was given albuterol and prednisone and felt better for several days however on 05/23/2024 he started to feel worse again. He had coughing, dizziness and weakness. His chest x-ray revealed development of bilateral mid and lower lung patchy consolidative opacities concerning for pneumonia. Arterial blood gases on 2 L nasal cannula revealed a PaO2 of 105, pCO2 33 and a pH of 7.47. White count 15.7. Hemoglobin 13.6. INR 1.2. Sodium 140. Potassium 3.9. Bicarb 22. BUN 27. Creatinine 1.4. Glucose 230. LDH 279. C-reactive protein 40. Procalcitonin is high at 1.22. Positive for COVID-19. He has been initiated on ceftriaxone and azithromycin along with Symbicort, albuterol and Decadron. Lovenox for DVT prophylaxis. He is seen today in consultation on the regular medical floor. He is currently awake and alert. He is coughing. He is short of breath with conversation and minimal activity. He is now requiring oxygen at 5 L/min per nasal cannula. His chest x-ray continues to show scattered multifocal airspace consolidative opacities. Unchanged compared to yesterday. Review of Systems REVIEW OF SYSTEMS: CONSTITUTIONAL: Positive for weakness, dizziness. Denies any recent significant weight loss or weight gain. EYES: Denies change in vision. EARS, NOSE, MOUTH, THROAT: Denies headaches, denies sore throat. CARDIOVASCULAR: Denies chest pain, palpitations or syncopal episodes. RESPIRATORY: Positive for shortness of breath, cough, congestion no hemoptysis. GASTROINTESTINAL: Denies change in appetite, denies abdominal pain GENITOURINARY: Denies hematuria, denies infections. MUSKULOSKELETAL: Denies pain, denies swelling. INTEGUMENTARY: Denies rash, denies eczema. NEUROLOGICAL: Denies recent memory loss, no recent seizure activity. PSYCHIATRIC: Denies anxiety, denies depression. HEMATOLOGIC/LYMPHATIC: Denies anemia, denies enlarged lymph nodes. Past Medical History Past Medical History: Asthma, Diabetes Mellitus, GERD/Reflux, Hypertension, Sleep Apnea/CPAP/BIPAP Additional Past Medical History / Comment(s): seasonal allergies,occas. cough, has cpap, positional apnea. History of Any Multi-Drug Resistant Organisms: None Reported Past Surgical History: Appendectomy Past Anesthesia/Blood Transfusion Reactions: No Reported Reaction Past Psychological History: No Psychological Hx Reported Smoking Status: Never smoker Past Alcohol Use History: Rare Past Drug Use History: None Reported - Past Family History Mother Family Medical History: No Reported History Medications and Allergies Home Medications Medication Instructions Recorded Confirmed Type Naproxen 500 mg PO BID PRN 07/23/15 05/23/24 History Omeprazole [PriLOSEC] 20 mg PO BID 07/23/15 05/23/24 History Aspirin [Adult Low Dose Aspirin EC] 81 mg PO DAILY 04/19/16 05/23/24 History Atorvastatin Calcium [Lipitor] 80 mg PO HS 04/04/23 05/23/24 History Loratadine [Claritin] 10 mg PO DAILY 04/04/23 05/23/24 History Losartan [Cozaar] 50 mg PO BID 04/04/23 05/23/24 History amLODIPine [Norvasc] 10 mg PO DAILY 04/04/23 05/23/24 History hydrALAZINE HCL 25 mg PO BID 04/04/23 05/23/24 History Insulin Aspart [NovoLOG Flexpen] 10 units SQ AC-TID 05/23/24 05/23/24 History Insulin Glargine,Hum.rec.anlog 30 units SQ BID 05/23/24 05/23/24 History [Lantus Solostar Pen] Montelukast Sodium 10 mg PO DAILY 05/23/24 05/23/24 History Potassium Citrate [Potassium 20 meq PO BID 05/23/24 05/23/24 History Citrate ER] hydroCHLOROthiazide [Hydrodiuril] 25 mg PO DAILY 05/23/24 05/23/24 History metFORMIN HCL ER [Glucophage XR] 500 mg PO BID 05/23/24 05/23/24 History Allergies Allergy/AdvReac Type Severity Reaction Status Date / Time codeine Allergy Hypotension Verified 05/23/24 14:37 lisinopril Allergy Unknown Verified 05/23/24 14:37 morphine Allergy Rash/Hives Verified 05/23/24 14:37 sulfacetamide Allergy Rash/Hives Verified 05/23/24 14:37 [From Sulfamide] hydrocodone AdvReac Flushing Verified 05/23/24 14:37 Physical Exam Vitals: Vital Signs Temp Pulse Pulse Resp BP BP Pulse Ox 05/24/24 07:00 97.9 F 91 19 107/71 89 L 05/24/24 01:51 93 L 05/24/24 01:08 90 L 05/24/24 00:30 97.4 F L 75 20 103/68 90 L 05/23/24 19:50 75 20 05/23/24 19:19 97.8 F 92 17 113/73 90 L 05/23/24 17:47 98.1 F 89 19 103/72 94 L 05/23/24 17:29 89 21 95/53 93 L 05/23/24 15:15 98.9 F 86 20 103/56 95 05/23/24 12:30 99 24 97/55 93 L 05/23/24 12:00 96 24 93/54 94 L Intake and Output 05/23/24 05/24/24 05/24/24 22:59 06:59 14:59 Other: Voiding Method Toilet # Voids 1 Weight 122.47 kg GENERAL EXAM: Alert, pleasant 63-year-old male patient, on 5 L nasal cannula, fairly comfortable in no apparent distress. HEAD: Normocephalic. EYES: Normal reaction of pupils, equal size. NOSE: Clear with pink turbinates. THROAT: No erythema or exudates. NECK: No masses, no JVD. CHEST: No chest wall deformity. LUNGS: Equal air entry with bilateral scattered rhonchi, wheeze. CVS: S1 and S2 normal with no audible murmur, regular rhythm. ABDOMEN: No hepatosplenomegaly, normal bowel sounds, no guarding or rigidity. SPINE: No scoliosis or deformity SKIN: No rashes CENTRAL NERVOUS SYSTEM: No focal deficits, tone is normal in all 4 extremities. EXTREMITIES: There is no peripheral edema. No clubbing, no cyanosis. Peripheral pulses are intact. Results - Laboratory Findings CBC and BMP: 05/23/24 11:05 05/24/24 04:40 ABG ABG pH 7.47 (7.35-7.45) H 05/23/24 11:24 ABG pCO2 33 mmHg (35-45) L 05/23/24 11:24 ABG pO2 105 mmHg (83-108) 05/23/24 11:24 ABG O2 Saturation 98.2 % (94-97) H 05/23/24 11:24 PT/INR, D-dimer PT 12.8 sec (10.0-12.5) H 05/23/24 11:05 INR 1.2 (<1.2) H 05/23/24 11:05 Abnormal lab findings: Abnormal Labs 05/23/24 05/23/24 05/23/24 11:05 11:05 11:05 WBC 15.7 H Neutrophils # 14.5 H Lymphocytes # 0.7 L PT 12.8 H INR 1.2 H ABG pH ABG pCO2 ABG Total CO2 ABG O2 Saturation Hemoglobin Anion Gap BUN 28 H Creatinine 1.71 H Est GFR (CKD-EPI) Glucose 125 H POC Glucose (mg/dL) Hemoglobin A1c Calcium 7.8 L Magnesium 1.4 L Lactate Dehydrogenase C-Reactive Protein 39.7 H Total Protein 5.4 L Albumin 2.9 L Albumin/Globulin Ratio Procalcitonin SARS-CoV-2 (PCR) 05/23/24 05/23/24 05/23/24 11:05 11:05 11:05 WBC Neutrophils # Lymphocytes # PT INR ABG pH ABG pCO2 ABG Total CO2 ABG O2 Saturation Hemoglobin Anion Gap BUN Creatinine Est GFR (CKD-EPI) Glucose POC Glucose (mg/dL) Hemoglobin A1c Calcium Magnesium Lactate Dehydrogenase 357 H C-Reactive Protein Total Protein Albumin Albumin/Globulin Ratio Procalcitonin 1.22 H SARS-CoV-2 (PCR) Detected A 05/23/24 05/23/24 05/23/24 11:24 17:49 19:49 WBC Neutrophils # Lymphocytes # PT INR ABG pH 7.47 H ABG pCO2 33 L ABG Total CO2 25 H ABG O2 Saturation 98.2 H Hemoglobin 12.9 L Anion Gap BUN Creatinine Est GFR (CKD-EPI) Glucose POC Glucose (mg/dL) 173 H 217 H Hemoglobin A1c Calcium Magnesium Lactate Dehydrogenase C-Reactive Protein Total Protein Albumin Albumin/Globulin Ratio Procalcitonin SARS-CoV-2 (PCR) 05/23/24 05/24/24 05/24/24 22:59 04:40 04:40 WBC Neutrophils # Lymphocytes # PT INR ABG pH ABG pCO2 ABG Total CO2 ABG O2 Saturation Hemoglobin Anion Gap 12.10 H BUN Creatinine Est GFR (CKD-EPI) 56 L Glucose 230 H POC Glucose (mg/dL) 247 H Hemoglobin A1c 7.4 H Calcium 7.4 L Magnesium Lactate Dehydrogenase 279 H C-Reactive Protein Total Protein 5.0 L Albumin 2.8 L Albumin/Globulin Ratio 1.27 L Procalcitonin SARS-CoV-2 (PCR) 05/24/24 05/24/24 06:51 11:23 WBC Neutrophils # Lymphocytes # PT INR ABG pH ABG pCO2 ABG Total CO2 ABG O2 Saturation Hemoglobin Anion Gap BUN Creatinine Est GFR (CKD-EPI) Glucose POC Glucose (mg/dL) 189 H 368 H Hemoglobin A1c Calcium Magnesium Lactate Dehydrogenase C-Reactive Protein Total Protein Albumin Albumin/Globulin Ratio Procalcitonin SARS-CoV-2 (PCR) - Diagnostic Findings Chest x-ray: image reviewed Assessment and Plan Assessment: Acute hypoxemic respiratory failure secondary to COVID-19 infection, COVID-19 pneumonia and/or community-acquired bacterial pneumonia. Procalcitonin 1.22 Leukocytosis secondary to above Acute kidney injury secondary to dehydration, improving Diabetes mellitus Obesity Obstructive sleep apnea Hypertension Hyperlipidemia Benign prostatic hyperplasia Plan: The patient was seen and evaluated Chest x-rays, labs and medications reviewed Continue ceftriaxone and azithromycin Add Symbicort, albuterol Continue Decadron Lovenox for DVT prophylaxis Titrate the FiO2 as tolerated We will continue to follow and make further recommendations based on his clinical status I have personally seen and examined the patient, performed the documentation and the assessment and plan as written. Number of minutes spent on the visit: 20. Dictation was produced using [employer] software. Please excuse any grammatical, word or spelling errors.
[2024-05-24] MEDS: ALBUTEROL HFA INHALER INHALATION SCH (11:53)
--- NOTE | 2024-05-24 13:32 | P.PN ---
Subjective Progress Note Date: 05/24/24 History of present illness; Alan Rogers is a 63-year-old male with a past medical history of hypertens ion, type 2 diabetes, hyperlipidemia, GERD, BPH, JENIFFER who presents for progressive productive cough and shortness of breath. Patient states his symptoms began 11 days ago with cough with sputum production nonbloody yellow- whitish in nature. He had shortness of breath and cough while at rest and with activity. At that time he visited the ER and was subsequently discharged with home dexamethasone. Over the next few days the patient's symptoms improved, following which they began worsening again. During this time. He states that he had tried DayQuil, NyQuil and acetaminophen without relief. He was also having symptoms of fever max at 102.6 degrees 2 days ago, fatigue, myalgia, weakness, headache, dizziness, chest congestion. Initial lab work done in the ER showed WBC 15.7, hemoglobin 13.6, platelets 236, PT 12.8, INR 1.2, ABG findings of pH 7.47, pCO2 33, pO2 105 at FiO2 of 28, sodiu m 137, potassium 3.8, BUN 28, creatinine 1.71, glucose 125, calcium 7.8, magnesium 1.4, troponin negative, CRP 39.7, BNP 253, viral panel positive COVID, otherwise negative. Chest x-ray done independently interpreted in the ER showed bilateral mid and lower patchy opacities. Progress note 05/24/2024 no events overnight. Patient seen and examined at bedside. He continues to have cough and shortness of breath. He was increased to 5 L of O2. He is also complaining of warmth and generalized fatigue. REVIEW OF SYSTEMS: All Systems reviewed, pertinent positives and negatives noted in HPI. All other symptoms are negative. The rest of the 14-point review of systems is negative. PHYSICAL EXAMINATION: Vitals reviewed GENERAL: The patient is alert and oriented x3, mild acute distress. Well developed, well nourished. HEENT: Pupils are round and equally reacting to light. EOMI. No scleral icterus. No conjunctival pallor. Normocephalic, atraumatic. No pharyngeal erythema. No thyromegaly. CARDIOVASCULAR: S1 and S2 present. No murmurs, rubs, or gallops. PULMONARY: Decreased breath sounds bilaterally worse on left with congestion and crackling. ABDOMEN: Soft, nontender, nondistended, normoactive bowel sounds. No palpable organomegaly. MUSCULOSKELETAL: No apparent joint swelling and deformities. EXTREMITIES: No apparent cyanosis, clubbing, or pedal edema. NEUROLOGICAL: Gross neurological examination did not reveal any focal deficits. SKIN: No apparent rashes. Labs reviewed today awaiting CBC, sodium 140, potassium 3.9, bicarb 21.9, BUN 26.8, creatinine 1.4, glucose [id number], HbA1c 7.4%, magnesium 2.2, LDH 279 Imaging reviewedchest x-ray independently interpreted reveals bilateral mid and lower patchy opacities, similar to yesterday CXR Assessment and plan Alan Rogers is a 63-year-old male with a past medical history of hypertension, type 2 diabetes, hyperlipidemia, GERD, BPH, JENIFFER who presents for progressive productive cough and shortness of breath. # Acute hypoxic respiratory failure #Acute COVID-19 pneumonia #Sepsis secondary to bacterial pneumonia #Respiratory alkalosis Initial pH 7.47, pCO2 33, pO2 105 at FiO2 of 28 COVID-19 positive and underlying bacterial pneumonia Continue dexamethasone IV 6 mg daily Continue azithromycin 500 mg IV daily, ceftriaxone 2 g IV daily Blood and sputum culture ordered Procalcitonin 1.22 Monitor CRP, LDH Continue O2, maintain greater than 92% saturation Pulmonology note reviewed, patient started on Symbicort twice daily, albuterol 4 times daily Initial WBC 15.7, BP 78/62, elevated respiratory rate Patient initially given NS 2.5 L Holding antihypertensive for now Continue to monitor #Hypomagnesemia Given magnesium sulfate 2 mg Continue monitor Chronic medical problems #Diabetes mellitus type 2 Hyperglycemia, steroid-induced Holding oral medications Begin Accu-Cheks and low-dose sliding scale, monitor for hypoglycemia Continue home long-acting insulin 30 units twice daily HbA1c 7.4% #CKD stage IIIb Near baseline creatinine Continue to monitor #JENIFFER Begin CPAP #Hypertension Holding home medications for now #Hyperlipidemia Continue Lipitor 80 mg at bedtime #GERD Continue pantoprazole 40 mg #Seasonal allergies Continue montelukast 10 mg F: P.o. E: Replete as needed N: Consistent carb E: None DVT ppx: Subq Lovenox Code status: Full code Anticipated discharge place: Pending clinical course Anticipated discharge time: Pending clinical course Monitor vital signs Continue with symptomatic treatment. Further recommendations as per clinical course of the patient Dictation was produced using [employer] dictation software. Please excuse any grammatical, word or spelling errors. Patient is severely ill, prognosis guarded. I have seen and evaluated the patient today. Discussed with the resident and agree with the residents finding and plan as documented in the resident's note. Changes highlighted in blue font. Objective - Vital Signs Vital signs: Vital Signs Temp 97.9 F 05/24/24 07:00 Pulse 91 05/24/24 07:00 Resp 19 05/24/24 07:00 BP 107/71 05/24/24 07:00 Pulse Ox 89 L 05/24/24 07:00 FiO2 Intake & Output 05/23/24 05/24/24 05/24/24 18:59 06:59 18:59 Intake Total 300 Balance 300 Weight 122.47 kg Intake: Intake, IV Titration 300 Amount Azithromycin 500 mg In 250 Sodium Chloride 0.9% 250 ml @ 250 mls/hr IVPB DAILY@1200 [facility] Rx#: [id number] cefTRIAXone 2 gm In 50 Sodium Chloride 0.9% 50 ml @ 100 mls/hr IVPB Q24HR [facility] Rx#:[id number] Other: Voiding Method Toilet # Voids 1 - Labs CBC & Chem 7: 05/24/24 04:40 05/24/24 04:40 Labs: Abnormal Lab Results - Last 24 Hours (Table) 05/23/24 05/23/24 05/23/24 Range/Units 11:05 11:05 17:49 Anion Gap (4.00-12.00) mmol/L Est GFR (CKD-EPI) (>=60) Glucose (70-110) mg/dL POC Glucose (mg/dL) 173 H (70-110) mg/dL Hemoglobin A1c (<=6.0) % Calcium (8.7-10.3) mg/dL Lactate Dehydrogenase 357 H (120-246) U/L Total Protein (6.2-8.2) g/dL Albumin (3.8-4.9) g/dL Albumin/Globulin Ratio (1.60-3.17) Ratio Procalcitonin 1.22 H (0.02-0.50) ng/mL 05/23/24 05/23/24 05/24/24 Range/Units 19:49 22:59 04:40 Anion Gap (4.00-12.00) mmol/L Est GFR (CKD-EPI) (>=60) Glucose (70-110) mg/dL POC Glucose (mg/dL) 217 H 247 H (70-110) mg/dL Hemoglobin A1c 7.4 H (<=6.0) % Calcium (8.7-10.3) mg/dL Lactate Dehydrogenase (120-246) U/L Total Protein (6.2-8.2) g/dL Albumin (3.8-4.9) g/dL Albumin/Globulin Ratio (1.60-3.17) Ratio Procalcitonin (0.02-0.50) ng/mL 05/24/24 05/24/24 05/24/24 Range/Units 04:40 06:51 11:23 Anion Gap 12.10 H (4.00-12.00) mmol/L Est GFR (CKD-EPI) 56 L (>=60) Glucose 230 H (70-110) mg/dL POC Glucose (mg/dL) 189 H 368 H (70-110) mg/dL Hemoglobin A1c (<=6.0) % Calcium 7.4 L (8.7-10.3) mg/dL Lactate Dehydrogenase 279 H (120-246) U/L Total Protein 5.0 L (6.2-8.2) g/dL Albumin 2.8 L (3.8-4.9) g/dL Albumin/Globulin Ratio 1.27 L (1.60-3.17) Ratio Procalcitonin (0.02-0.50) ng/mL
[2024-05-24 13:52] LABS: Basophils # (A) 0.04 X 10*3/uL (0.00-0.10); Basophils % (A) 0.3 %; Eosinophils # (A) 0 X 10*3/uL (0.04-0.35); Eosinophils % (A) 0 %; HCT 37.1 % (39.6-50.0); HGB 12.2 g/dL (13.0-17.0); Lymphocytes # (A) 0.65 X 10*3/uL (0.90-5.00); Lymphocytes % (A) 4.7 %; MCH 27.7 pg (27.0-32.0); MCHC 32.9 g/dL (32.0-37.0); MCV 84.3 FL (80.0-97.0); Mean Platelet Volume 11.1 FL (9.5-12.2); Monocytes # (A) 0.37 X 10*3/uL (0.20-1.00); Monocytes % (A) 2.7 %; NRBC Per 100 WBC 0 X 10*3/uL (0.00-0.01); Neutrophils # (A) 12.62 X 10*3/uL (1.80-7.70); Neutrophils % (A) 90.9 %; Platelet Count 259 X 10*3/uL (140-440); RDW 13.2 % (11.5-14.5); WBC 13.87 X 10*3/uL (4.50-10.00)
[2024-05-24 16:26] LABS: Glucose,Whole Blood 268 mg/dL (70-110)
[2024-05-24] MEDS: SYMBICORT 160-4.5 MCG INHALER INHALATION SCH (19:56)
[2024-05-24 21:04] LABS: Glucose,Whole Blood 304 mg/dL (70-110)
[2024-05-24 23:49] LABS: INR 1.2 sec (0.93-1.11); Prothrombin Time 12.8 sec (9.9-11.9)
--- NOTE | 2024-05-25 06:42 | XR ---
EXAMINATION TYPE: XR chest 1V portable DATE OF EXAM: 05/25/2024 COMPARISON: 05/24/2024 HISTORY: Pneumonia follow-up, covid positive TECHNIQUE: Single frontal view of the chest is obtained. FINDINGS: There are persistent stable patchy opacities. There is no pleural effusion or pneumothorax. The heart and pulmonary vascularity are normal. The oss eous structures are intact IMPRESSION: No change in the partially consolidated opacity opacities likely indicating a pneumonic process. [facility], , 05/25/2024 6:39 AM
[2024-05-25 06:55] LABS: Glucose,Whole Blood 160 mg/dL (70-110)
[2024-05-25 09:54] LABS: Basophils # (A) 0.02 X 10*3/uL (0.00-0.10); Basophils % (A) 0.1 %; Eosinophils # (A) 0 X 10*3/uL (0.04-0.35); Eosinophils % (A) 0 %; HCT 34.9 % (39.6-50.0); HGB 11.4 g/dL (13.0-17.0); Lymphocytes # (A) 0.93 X 10*3/uL (0.90-5.00); Lymphocytes % (A) 6.4 %; MCH 27.9 pg (27.0-32.0); MCHC 32.7 g/dL (32.0-37.0); MCV 85.3 FL (80.0-97.0); Mean Platelet Volume 11.2 FL (9.5-12.2); Monocytes # (A) 0.63 X 10*3/uL (0.20-1.00); Monocytes % (A) 4.3 %; NRBC Per 100 WBC 0 X 10*3/uL (0.00-0.01); Neutrophils # (A) 12.86 X 10*3/uL (1.80-7.70); Neutrophils % (A) 88.2 %; Platelet Count 264 X 10*3/uL (140-440); RBC 4.09 X 10*6/uL (4.40-5.60); RDW 13.5 % (11.5-14.5); WBC 14.59 X 10*3/uL (4.50-10.00)
--- NOTE | 2024-05-25 11:02 | P.PN ---
Subjective Progress Note Date: 05/25/24 This is a pleasant 63-year-old male patient with a known history of obesity, obstructive sleep apnea, diabetes mellitus, hypertension, hyperlipidemia, benign prostatic hyperplasia who follows at the [facility] for his primary care needs. Approximately 10 days ago he had developed shortness of breath cough and congestion and was diagnosed with COVID-19. He was here in the emergency department on 05/15/2024. He was given albuterol and prednisone and felt better for several days however on 05/23/2024 he started to feel worse again. He had coughing, dizziness and weakness. His chest x-ray revealed development of bilateral mid and lower lung patchy consolidative opacities concerning for pneumonia. Arterial blood gases on 2 L nasal cannula revealed a PaO2 of 105, pCO2 33 and a pH of 7.47. White count 15.7. Hemoglobin 13.6. INR 1.2. Sodium 140. Potassium 3.9. Bicarb 22. BUN 27. Creatinine 1.4. Glucose 230. LDH 279. C-reactive protein 40. Procalcitonin is high at 1.22. Positive for CO VID-19. He has been initiated on ceftriaxone and azithromycin along with Symbicort, albuterol and Decadron. Lovenox for DVT prophylaxis. He is seen today in consultation on the regular medical floor. He is currently awake and alert. He is coughing. He is short of breath with conversation and minimal activity. He is now requiring oxygen at 5 L/min per nasal cannula. His chest x-ray continues to show scattered multifocal airspace consolidative opacities. Unchanged compared to yesterday. The patient is seen today May 25, 2024 in follow-up on the regular medical floor. He is currently sitting up in bed. Awake and alert in no acute distress. He states he is feeling the same today compared to yesterday. No worse. He is maintaining O2 saturations in the 90s on 4 L/min per nasal cannula. He has tried proning for short periods of time. He is using his home CPAP unit at night. He is continued on Symbicort, albuterol, Decadron. Antibiotics in the form of ceftriaxone and azithromycin. Today's chest x-ray shows similar partially consolidated opacities. White count 14.5. Hemoglobin 11.4. Platelets 264. Glucose 160. Objective - Vital Signs Vital signs: Vital Signs Temp 97.7 F 10/13/24 06:58 Pulse 66 05/25/24 06:58 Resp 18 05/25/24 06:58 BP 112/76 05/25/24 06:58 Pulse Ox 92 L 05/25/24 08:19 FiO2 Intake & Output 05/24/24 05/25/24 05/25/24 18:59 06:59 18:59 Intake Total 300 Balance 300 Intake: Intake, IV Titration 300 Amount Azithromycin 500 mg In 250 Sodium Chloride 0.9% 250 ml @ 250 mls/hr IVPB DAILY@1200 [facility] Rx#: [id number] cefTRIAXone 2 gm In 50 Sodium Chloride 0.9% 50 ml @ 100 mls/hr IVPB Q24HR [facility] Rx#:[id number] Other: Voiding Method Toilet Toilet # Voids 5 - Exam GENERAL EXAM: Alert, pleasant 63-year-old male, on 4 L nasal cannula, fairly comfortable in no apparent distress. HEAD: Normocephalic. EYES: Normal reaction of pupils, equal size. NOSE: Clear with pink turbinates. THROAT: No erythema or exudates. NECK: No masses, no JVD. CHEST: No chest wall deformity. LUNGS: Equal air entry with bilateral scattered rhonchi. CVS: S1 and S2 normal with no audible murmur, regular rhythm. ABDOMEN: No hepatosplenomegaly, normal bowel sounds, no guarding or rigidity. SPINE: No scoliosis or deformity SKIN: No rashes CENTRAL NERVOUS SYSTEM: No focal deficits, tone is normal in all 4 extremities. EXTREMITIES: There is no peripheral edema. No clubbing, no cyanosis. Peripheral pulses are intact. - Labs CBC & Chem 7: 05/25/24 05:04 05/24/24 04:40 Labs: Abnormal Lab Results - Last 24 Hours (Table) 05/24/24 05/24/24 05/24/24 Range/Units 04:40 04:40 04:40 WBC 13.87 H (4.50-10.00) X 10*3/uL RBC (4.40-5.60) X 10*6/uL Hgb 12.2 L (13.0-17.0) g/dL Hct 37.1 L (39.6-50.0) % Immature Gran # 0.19 H (0.00-0.04) X 10*3/uL Neutrophils # 12.62 H (1.80-7.70) X 10*3/uL Lymphocytes # 0.65 L (0.90-5.00) X 10*3/uL Eosinophils # 0 L (0.04-0.35) X 10*3/uL PT 12.8 H (9.9-11.9) sec INR 1.20 H (0.93-1.11) sec POC Glucose (mg/dL) (70-110) mg/dL Procalcitonin 0.82 H (0.02-0.50) ng/mL 05/24/24 05/24/24 05/24/24 Range/Units 11:23 16:25 21:03 WBC (4.50-10.00) X 10*3/uL RBC (4.40-5.60) X 10*6/uL Hgb (13.0-17.0) g/dL Hct (39.6-50.0) % Immature Gran # (0.00-0.04) X 10*3/uL Neutrophils # (1.80-7.70) X 10*3/uL Lymphocytes # (0.90-5.00) X 10*3/uL Eosinophils # (0.04-0.35) X 10*3/uL PT (9.9-11.9) sec INR (0.93-1.11) sec POC Glucose (mg/dL) 368 H 268 H 304 H (70-110) mg/dL Procalcitonin (0.02-0.50) ng/mL 05/25/24 05/25/24 Range/Units 05:04 06:53 WBC 14.59 H (4.50-10.00) X 10*3/uL RBC 4.09 L (4.40-5.60) X 10*6/uL Hgb 11.4 L (13.0-17.0) g/dL Hct 34.9 L (39.6-50.0) % Immature Gran # 0.15 H (0.00-0.04) X 10*3/uL Neutrophils # 12.86 H (1.80-7.70) X 10*3/uL Lymphocytes # (0.90-5.00) X 10*3/uL Eosinophils # 0 L (0.04-0.35) X 10*3/uL PT (9.9-11.9) sec INR (0.93-1.11) sec POC Glucose (mg/dL) 160 H (70-110) mg/dL Procalcitonin (0.02-0.50) ng/mL Assessment and Plan Assessment: Acute hypoxemic respiratory failure secondary to COVID-19 infection, COVID-19 pneumonia and/or community-acquired bacterial pneumonia. Procalcitonin 1.22 Leukocytosis secondary to above Acute kidney injury secondary to dehydration, improving Diabetes mellitus Obesity Obstructive sleep apnea Hypertension Hyperlipidemia Benign prostatic hyperplasia Plan: The patient was seen and evaluated Chest x-ray, labs and medications reviewed Continue ceftriaxone and azithromycin Continue Symbicort, albuterol, Decadron Lovenox for DVT prophylaxis Titrate the FiO2 as tolerated Prone as tolerated Utilizing his home CPAP at night We will continue to follow I have personally seen and examined the patient, performed the documentation and the assessment and plan as written. Number of minutes spent on the visit: 10. Dictation was produced using [employer] dictation software. Please excuse any grammatical, word or spelling errors.
[2024-05-25 11:30] LABS: Glucose,Whole Blood 225 mg/dL (70-110)
[2024-05-25 12:03] LABS: ALT 34 U/L (10-49); AST 27 U/L (14-35); Albumin 2.8 g/dL (3.8-4.9); Albumin/Globulin Ratio 1.33 Ratio (1.60-3.17); Alkaline Phosphatase 99 U/L (41-126); Blood Urea Nitrogen 33.6 mg/dL (9.0-27.0); Carbon Dioxide 23.1 mmol/L (21.6-31.8); Chloride 108 mmol/L (96-109); Globulin 2.1 g/dL (1.6-3.3); Glucose 208 mg/dL (70-110); LDH 271 U/L (120-246); Potassium 4.6 mmol/L (3.5-5.5); Sodium 141 mmol/L (135-145); Total Bilirubin <0.2 mg/dL (0.3-1.2); Total Protein 4.9 g/dL (6.2-8.2)
--- NOTE | 2024-05-25 13:26 | P.PN ---
Subjective Progress Note Date: 05/25/24 History of present illness; Alan Rogers is a 63-year-old male with a past medical history of hypertension, type 2 diabetes, hyperlipidemia, GERD, BPH, JENIFFER who presents for progressive productive cough and shortness of breath. Patient states his symptoms began 11 days ago with cough with sputum production nonbloody yellow- whitish in nature. He had shortness of breath and cough while at rest and with activity. At that time he visited the ER and was subsequently discharged with home dexamethasone. Over the next few days the patient's symptoms improved, following which they began worsening again. During this time. He states that he had tried DayQuil, NyQuil and acetaminophen without relief. He was also having symptoms of fever max at 102.6 degrees 2 days ago, fatigue, myalgia, weakness, headache, dizziness, chest congestion. Initial lab work done in the ER showed WBC 15.7, hemoglobin 13.6, platelets 236, PT 12.8, INR 1.2, ABG findings of pH 7.47, pCO2 33, pO2 105 at FiO2 of 28, sodium 137, potassium 3.8, BUN 28, creatinine 1.71, glucose 125, calcium 7.8, magnesium 1.4, troponin negative, CRP 39.7, BNP 253, viral panel positive COVID, otherwise negative. Chest x-ray done independently interpreted in the ER showed bilateral mid and lower patchy opacities. Seen and examined at bedside. No acute events overnight. Continues to have nonproductive cough and shortness of breath. REVIEW OF SYSTEMS: All Systems reviewed, pertinent positives and negatives noted in HPI. All other symptoms are negative. The rest of the 14-point review of systems is negative. PHYSICAL EXAMINATION: Vitals reviewed GENERAL: The patient is alert and oriented x3, mild acute distress. Well developed, well nourished. HEENT: Pupils are round and equally reacting to light. EOMI. No scleral icterus. No conjunctival pallor. Normocephalic, atraumatic. No pharyngeal erythema. No thyromegaly. CARDIOVASCULAR: S1 and S2 present. No murmurs, rubs, or gallops. PULMONARY: Decreased breath sounds bilaterally worse on left with congestion and crackling., Supplemental oxygen ABDOMEN: Soft, nontender, nondistended, normoactive bowel sounds. No palpable organomegaly. MUSCULOSKELETAL: No apparent joint swelling and deformities. EXTREMITIES: No apparent cyanosis, clubbing, or pedal edema. NEUROLOGICAL: Gross neurological examination did not reveal any focal deficits. SKIN: No apparent rashes. Labs reviewed today WBC 14.59, hemoglobin 11.4, creatinine 1.5, blood sugars range between 1 60-2 25, CRP 11.4, LDH 271 Imaging reviewedchest x-ray independently interpreted reveals bilateral mid and lower patchy opacities, similar to yesterday CXR Assessment and plan Patient is severely ill. Needs close monitoring. Prognosis guarded. # Acute hypoxic respiratory failure #Acute COVID-19 pneumonia #Sepsis secondary to bacterial pneumonia #Respiratory alkalosis Continue dexamethasone IV 6 mg daily Continue azithromycin 500 mg IV daily, ceftriaxone 2 g IV daily Blood and sputum culture no growth to date Wean oxygen -Discussed management with pulmonology, continue current therapy Continue on Symbicort twice daily, albuterol 4 times daily Holding antihypertensive for now Continue to monitor #Hypomagnesemia, resolved Chronic medical problems: #Diabetes mellitus type 2 Hyperglycemia, steroid-induced Holding oral medications Continue Accu-Cheks and low-dose sliding scale, monitor for hypoglycemia Continue home long-acting insulin 30 units twice daily HbA1c 7.4% #CKD stage IIIb Near baseline creatinine Continue to monitor #JENIFFER Begin CPAP #Hypertension Holding home medications for now #Hyperlipidemia Continue Lipitor 80 mg at bedtime #GERD Continue pantoprazole 40 mg #Seasonal allergies Continue montelukast 10 mg F: P.o. E: Replete as needed N: Consistent carb E: None DVT ppx: Subq Lovenox Code status: Full code Anticipated discharge place: Pending clinical course Anticipated discharge time: Pending clinical course Objective - Vital Signs Vital signs: Vital Signs Temp 97.7 F 05/25/24 06:58 Pulse 66 05/25/24 06:58 Resp 18 05/25/24 06:58 BP 112/76 05/25/24 06:58 Pulse Ox 92 L 05/25/24 08:19 FiO2 Intake & Output 05/24/24 05/25/24 05/25/24 18:59 06:59 18:59 Intake Total 300 Balance 300 Intake: Intake, IV Titration 300 Amount Azithromycin 500 mg In 250 Sodium Chloride 0.9% 250 ml @ 250 mls/hr IVPB DAILY@1200 [facility] Rx#: [id number] cefTRIAXone 2 gm In 50 Sodium Chloride 0.9% 50 ml @ 100 mls/hr IVPB Q24HR [facility] Rx#:[id number] Other: Voiding Method Toilet Toilet # Voids 5 - Labs CBC & Chem 7: 05/25/24 05:04 05/25/24 05:04 Labs: Abnormal Lab Results - Last 24 Hours (Table) 05/24/24 05/24/24 05/24/24 Range/Units 04:40 04:40 04:40 WBC 13.87 H (4.50-10.00) X 10*3/uL RBC (4.40-5.60) X 10*6/uL Hgb 12.2 L (13.0-17.0) g/dL Hct 37.1 L (39.6-50.0) % Immature Gran # 0.19 H (0.00-0.04) X 10*3/uL Neutrophils # 12.62 H (1.80-7.70) X 10*3/uL Lymphocytes # 0.65 L (0.90-5.00) X 10*3/uL Eosinophils # 0 L (0.04-0.35) X 10*3/uL PT 12.8 H (9.9-11.9) sec INR 1.20 H (0.93-1.11) sec BUN (9.0-27.0) mg/dL Est GFR (CKD-EPI) (>=60) BUN/Creatinine Ratio (12.00-20.00) Ratio Glucose (70-110) mg/dL POC Glucose (mg/dL) (70-110) mg/dL Calcium (8.7-10.3) mg/dL Total Bilirubin (0.3-1.2) mg/dL Lactate Dehydrogenase (120-246) U/L C-Reactive Protein (0.00-0.80) mg/dL Total Protein (6.2-8.2) g/dL Albumin (3.8-4.9) g/dL Albumin/Globulin Ratio (1.60-3.17) Ratio Procalcitonin 0.82 H (0.02-0.50) ng/mL 05/24/24 05/24/24 05/25/24 Range/Units 16:25 21:03 05:04 WBC 14.59 H (4.50-10.00) X 10*3/uL RBC 4.09 L (4.40-5.60) X 10*6/uL Hgb 11.4 L (13.0-17.0) g/dL Hct 34.9 L (39.6-50.0) % Immature Gran # 0.15 H (0.00-0.04) X 10*3/uL Neutrophils # 12.86 H (1.80-7.70) X 10*3/uL Lymphocytes # (0.90-5.00) X 10*3/uL Eosinophils # 0 L (0.04-0.35) X 10*3/uL PT (9.9-11.9) sec INR (0.93-1.11) sec BUN (9.0-27.0) mg/dL Est GFR (CKD-EPI) (>=60) BUN/Creatinine Ratio (12.00-20.00) Ratio Glucose (70-110) mg/dL POC Glucose (mg/dL) 268 H 304 H (70-110) mg/dL Calcium (8.7-10.3) mg/dL Total Bilirubin (0.3-1.2) mg/dL Lactate Dehydrogenase (120-246) U/L C-Reactive Protein (0.00-0.80) mg/dL Total Protein (6.2-8.2) g/dL Albumin (3.8-4.9) g/dL Albumin/Globulin Ratio (1.60-3.17) Ratio Procalcitonin (0.02-0.50) ng/mL 05/25/24 05/25/24 05/25/24 Range/Units 05:04 06:53 11:29 WBC (4.50-10.00) X 10*3/uL RBC (4.40-5.60) X 10*6/uL Hgb (13.0-17.0) g/dL Hct (39.6-50.0) % Immature Gran # (0.00-0.04) X 10*3/uL Neutrophils # (1.80-7.70) X 10*3/uL Lymphocytes # (0.90-5.00) X 10*3/uL Eosinophils # (0.04-0.35) X 10*3/uL PT (9.9-11.9) sec INR (0.93-1.11) sec BUN 33.6 H (9.0-27.0) mg/dL Est GFR (CKD-EPI) 51 L (>=60) BUN/Creatinine Ratio 22.40 H (12.00-20.00) Ratio Glucose 208 H (70-110) mg/dL POC Glucose (mg/dL) 160 H 225 H (70-110) mg/dL Calcium 8.0 L (8.7-10.3) mg/dL Total Bilirubin <0.2 L (0.3-1.2) mg/dL Lactate Dehydrogenase 271 H (120-246) U/L C-Reactive Protein 11.40 H (0.00-0.80) mg/dL Total Protein 4.9 L (6.2-8.2) g/dL Albumin 2.8 L (3.8-4.9) g/dL Albumin/Globulin Ratio 1.33 L (1.60-3.17) Ratio Procalcitonin (0.02-0.50) ng/mL Microbiology - Last 24 Hours (Table) 05/23/24 19:00 Blood Culture - Preliminary Blood
[2024-05-25 17:01] LABS: Glucose,Whole Blood 291 mg/dL (70-110)
[2024-05-25 21:29] LABS: Glucose,Whole Blood 305 mg/dL (70-110)
[2024-05-26 06:38] LABS: Glucose,Whole Blood 104 mg/dL (70-110)
[2024-05-26 08:36] LABS: Basophils # (A) 0.02 X 10*3/uL (0.00-0.10); Basophils % (A) 0.2 %; Eosinophils # (A) 0 X 10*3/uL (0.04-0.35); Eosinophils % (A) 0 %; HCT 34.9 % (39.6-50.0); HGB 11.2 g/dL (13.0-17.0); Lymphocytes # (A) 1.05 X 10*3/uL (0.90-5.00); Lymphocytes % (A) 10.1 %; MCH 27.3 pg (27.0-32.0); MCHC 32.1 g/dL (32.0-37.0); MCV 85.1 FL (80.0-97.0); Mean Platelet Volume 10.8 FL (9.5-12.2); Monocytes # (A) 0.71 X 10*3/uL (0.20-1.00); Monocytes % (A) 6.8 %; NRBC Per 100 WBC 0 X 10*3/uL (0.00-0.01); Neutrophils # (A) 8.48 X 10*3/uL (1.80-7.70); Neutrophils % (A) 81.4 %; Platelet Count 257 X 10*3/uL (140-440); RDW 13.6 % (11.5-14.5); WBC 10.42 X 10*3/uL (4.50-10.00)
[2024-05-26 08:51] LABS: ALT 50 U/L (10-49); AST 26 U/L (14-35); Albumin 2.9 g/dL (3.8-4.9); Albumin/Globulin Ratio 1.61 Ratio (1.60-3.17); Alkaline Phosphatase 89 U/L (41-126); Blood Urea Nitrogen 32.2 mg/dL (9.0-27.0); Calcium 7.8 mg/dL (8.7-10.3); Carbon Dioxide 23.8 mmol/L (21.6-31.8); Chloride 108 mmol/L (96-109); Globulin 1.8 g/dL (1.6-3.3); Glucose 205 mg/dL (70-110); LDH 226 U/L (120-246); Potassium 4.6 mmol/L (3.5-5.5); Sodium 140 mmol/L (135-145); Total Bilirubin 0.2 mg/dL (0.3-1.2); Total Protein 4.7 g/dL (6.2-8.2)
--- NOTE | 2024-05-26 10:38 | CDI ---
Documentation Clarification Form Date: 05/26/2024 10:11:39 AM From: Tania Morales Phone: [phone] Admit Date: 05/23/2024 01:14:00 PM Patient Name: Alan Rogers Visit Number: [id number] Discharge Date: ATTENTION: The Clinical Documentation Specialists (CDI) and [facility] Coding Staff appreciate your assistance in clarifying documentation. Please respond to the clarification below the line at the bottom and electronically sign. The CDI & [facility] Coding staff will review the response and follow-up if needed. Please note: Queries are made part of the Legal Health Record. If you have any questions, please contact the author of this message via ITS. Doctor: Ajay Mehta Bacterial pneumonia is documented 05/23, HP. Additional clarification regarding the type of pneumonia is requested. History/Risk Factors: 63 year old Male presents to the ED with shortness of breath. Medical History: Asthma, DM, GERD/Reflux, HTN, Sleep Apnea with CPAP/BIPAP and CKD 3. HP 05/23. Clinical Indicators: WBC/Left shift: 05/23 Wbc 15.7, Neutrophils 14.5 X-ray, 05/23: Development of bilateral mid and lower lung patchy consolidative opacities Lung/Breathing assessment: 05/23 HP: Decreased breath sounds bilaterally worse on left with congestion and crackling. Treatment: Antibiotics: 05/23 Ceftriaxone IVPB x 1; 05/23 Ceftriaxone IVP x 1; 05/23 R 05/23 Azithromycin IVPB Daily x 3 Bags; 05/24 Ceftriaxone IVPB Q24H O2 2L nc Breathing Tx: 05/23 Duoneb Inhalation x 1; 05/24 Ventolin Inhaler QID FREDDY; 05/24 Symbicort Inhaler BID FREDDY Please clarify the type of bacterial pneumonia, if known: [ ] Gram Negative Bacterial Pneumonia [ ] Bacterial Pneumonia Due to Strep [ ] Bacterial Pneumonia Due to Staph [ ] Bacterial Pneumonia Due to E. Coli [ ] Other bacteria (please specify) [ x ] Other, please specify _unknown bacteria [ ] Unable to determine (Template Last Revised: October 2020) MTDD
--- NOTE | 2024-05-26 11:21 | P.PN ---
Subjective Progress Note Date: 05/26/24 History of present illness; Alan Rogers is a 63-year-old male with a past medical history of hypertension, type 2 diabetes, hyperlipidemia, GERD, BPH, JENIFFER who presents for progressive productive cough and shortness of breath. Patient states his symptoms began 11 days ago with cough with sputum production nonbloody yellow- whitish in nature. He had shortness of breath and cough while at rest and with activity. At that time he visited the ER and was subsequently discharged with home dexamethasone. Over the next few days the patient's symptoms improved, following which they began worsening again. During this time. He states that he had tried DayQuil, NyQuil and acetaminophen without relief. He was also having symptoms of fever max at 102.6 degrees 2 days ago, fatigue, myalgia, weakness, headache, dizziness, chest congestion. Initial lab work done in the ER showed WBC 15.7, hemoglobin 13.6, platelets 236, PT 12.8, INR 1.2, ABG findings of pH 7.47, pCO2 33, pO2 105 at FiO2 of 28, sodium 137, potassium 3.8, BUN 28, creatinine 1.71, glucose 125, calcium 7.8, magnesium 1.4, troponin negative, CRP 39.7, BNP 253, viral panel positive COVID, otherwise negative. Chest x-ray done independently interpreted in the ER showed bilateral mid and lower patchy opacities. Subjective: Seen and examined at bedside. No acute events overnight. Continues to have nonproductive cough and shortness of breath. REVIEW OF SYSTEMS: All Systems reviewed, pertinent positives and negatives noted in HPI. All other symptoms are negative. PHYSICAL EXAMINATION: Vitals reviewed GENERAL: The patient is alert and oriented x3, no acute distress. Well developed, well nourished. HEENT: Pupils are round and equally reacting to light. EOMI. No scleral icterus. No conjunctival pallor. Normocephalic, atraumatic. No pharyngeal erythema. No thyromegaly. CARDIOVASCULAR: S1 and S2 present. No murmurs, rubs, or gallops. PULMONARY: Bilateral Rales, supplemental oxygen ABDOMEN: Soft, nontender, nondistended, normoactive bowel sounds. No palpable organomegaly. MUSCULOSKELETAL: No apparent joint swelling and deformities. EXTREMITIES: No apparent cyanosis, clubbing, or pedal edema. NEUROLOGICAL: Gross neurological examination did not reveal any focal deficits. SKIN: No apparent rashes. Labs reviewed today WBC 10.42, hemoglobin 11.2, creatinine 1.4, blood sugars range between 10 4-2 05 Imaging reviewed: No new imaging Assessment and plan Patient is severely ill. Needs close monitoring. Prognosis guarded. # Acute hypoxic respiratory failure #Acute COVID-19 pneumonia #Sepsis secondary to superimposed bacterial pneumonia #Respiratory alkalosis Continue dexamethasone IV 6 mg daily Status post azithromycin 500 mg IV daily, continue ceftriaxone 2 g IV daily Blood and sputum culture no growth to date Wean oxygen -Neurology following Continue on Symbicort twice daily, albuterol 4 times daily Holding antihypertensive for now Continue to monitor #Hypomagnesemia, resolved Chronic medical problems: #Diabetes mellitus type 2 Hyperglycemia, steroid-induced Holding oral medications Continue Accu-Cheks and low-dose sliding scale, monitor for hypoglycemia Continue home long-acting insulin 30 units twice daily HbA1c 7.4% #CKD stage IIIb Near baseline creatinine Continue to monitor #JENIFFER Begin CPAP #Hypertension Holding home medications for now #Hyperlipidemia Continue Lipitor 80 mg at bedtime #GERD Continue pantoprazole 40 mg #Seasonal allergies Continue montelukast 10 mg F: P.o. E: Replete as needed N: Consistent carb E: None DVT ppx: Subq Lovenox Code status: Full code Anticipated discharge place: Pending clinical course Anticipated discharge time: Pending clinical course Objective - Vital Signs Vital signs: Vital Signs Temp 98.1 F 05/26/24 07:11 Pulse 63 05/26/24 07:11 Resp 20 05/26/24 07:11 BP 116/67 05/26/24 07:11 Pulse Ox 96 05/26/24 07:11 FiO2 Intake & Output 05/25/24 05/26/24 05/26/24 18:59 06:59 18:59 Other: Voiding Method Toilet Toilet # Voids 6 - Labs CBC & Chem 7: 05/26/24 03:17 05/26/24 03:17 Labs: Abnormal Lab Results - Last 24 Hours (Table) 05/25/24 05/25/24 05/25/24 Range/Units 05:04 11:29 17:00 WBC (4.50-10.00) X 10*3/uL RBC (4.40-5.60) X 10*6/uL Hgb (13.0-17.0) g/dL Hct (39.6-50.0) % Immature Gran # (0.00-0.04) X 10*3/uL Neutrophils # (1.80-7.70) X 10*3/uL Eosinophils # (0.04-0.35) X 10*3/uL BUN 33.6 H (9.0-27.0) mg/dL Est GFR (CKD-EPI) 51 L (>=60) BUN/Creatinine Ratio 22.40 H (12.00-20.00) Ratio Glucose 208 H (70-110) mg/dL POC Glucose (mg/dL) 225 H 291 H (70-110) mg/dL Calcium 8.0 L (8.7-10.3) mg/dL Total Bilirubin <0.2 L (0.3-1.2) mg/dL ALT (10-49) U/L Lactate Dehydrogenase 271 H (120-246) U/L C-Reactive Protein 11.40 H (0.00-0.80) mg/dL Total Protein 4.9 L (6.2-8.2) g/dL Albumin 2.8 L (3.8-4.9) g/dL Albumin/Globulin Ratio 1.33 L (1.60-3.17) Ratio 05/25/24 05/26/24 05/26/24 Range/Units 21:28 03:17 03:17 WBC 10.42 H (4.50-10.00) X 10*3/uL RBC 4.10 L (4.40-5.60) X 10*6/uL Hgb 11.2 L (13.0-17.0) g/dL Hct 34.9 L (39.6-50.0) % Immature Gran # 0.16 H (0.00-0.04) X 10*3/uL Neutrophils # 8.48 H (1.80-7.70) X 10*3/uL Eosinophils # 0 L (0.04-0.35) X 10*3/uL BUN 32.2 H (9.0-27.0) mg/dL Est GFR (CKD-EPI) 56 L (>=60) BUN/Creatinine Ratio 23.00 H (12.00-20.00) Ratio Glucose 205 H (70-110) mg/dL POC Glucose (mg/dL) 305 H (70-110) mg/dL Calcium 7.8 L (8.7-10.3) mg/dL Total Bilirubin 0.2 L (0.3-1.2) mg/dL ALT 50 H (10-49) U/L Lactate Dehydrogenase (120-246) U/L C-Reactive Protein 5.40 H (0.00-0.80) mg/dL Total Protein 4.7 L (6.2-8.2) g/dL Albumin 2.9 L (3.8-4.9) g/dL Albumin/Globulin Ratio (1.60-3.17) Ratio Microbiology - Last 24 Hours (Table) 05/23/24 19:00 Blood Culture - Preliminary Blood
[2024-05-26 11:30] LABS: Glucose,Whole Blood 203 mg/dL (70-110)
[2024-05-26] MEDS: guaiFENesin-DM 100-10MG/5ML 10 ML CUP PO SCH (12:50)
[2024-05-26 16:40] LABS: Glucose,Whole Blood 411 mg/dL (70-110)
--- NOTE | 2024-05-26 18:07 | P.PN ---
Subjective Progress Note Date: 05/26/24 This is a pleasant 63-year-old male patient with a known history of obesity, obstructive sleep apnea, diabetes mellitus, hypertension, hyperlipidemia, benign prostatic hyperplasia who follows at the [facility] for his primary care needs. Approximately 10 days ago he had developed shortness of breath cough and congestion and was diagnosed with COVID-19. He was here in the emergency department on 05/15/2024. He was given albuterol and prednisone and felt better for several days however on 05/23/2024 he started to feel worse again. He had coughing, dizziness and weakness. His chest x-ray revealed development of bilateral mid and lower lung patchy consolidative opacities concerning for pneumonia. Arterial blood gases on 2 L nasal cannula revealed a PaO2 of 105, pCO2 33 and a pH of 7.47. White count 15.7. Hemoglobin 13.6. INR 1.2. Sodium 140. Potassium 3.9. Bicarb 22. BUN 27. Creatinine 1.4. Glucose 230. LDH 279. C-reactive protein 40. Procalcitonin is high at 1.22. Positive for C OVID-19. He has been initiated on ceftriaxone and azithromycin along with Symbicort, albuterol and Decadron. Lovenox for DVT prophylaxis. He is seen today in consultation on the regular medical floor. He is currently awake and alert. He is coughing. He is short of breath with conversation and minimal activity. He is now requiring oxygen at 5 L/min per nasal cannula. His chest x-ray continues to show scattered multifocal airspace consolidative opacities. Unchanged compared to yesterday. The patient is seen today May 25, 2024 in follow-up on the regular medical floor. He is currently sitting up in bed. Awake and alert in no acute distress. He states he is feeling the same today compared to yesterday. No worse. He is maintaining O2 saturations in the 90s on 4 L/min per nasal cannula. He has tried proning for short periods of time. He is using his home CPAP unit at night. He is continued on Symbicort, albuterol, Decadron. Antibiotics in the form of ceftriaxone and azithromycin. Today's chest x-ray shows similar partially consolidated opacities. White count 14.5. Hemoglobin 11.4. Platelets 264. Glucose 160. 05/26/2024, the patient remains on 4 L of O2 nasal cannula. The patient is known to have JENIFFER, diabetes, hypertension hyperlipidemia and BPH. The patient is currently in the hospital with hypoxic respiratory failure with bilateral pulmonary filtrates consistent with COVID-19 infection/pneumonia. The patient is also on empiric antibiotic coverage. The patient is on Lovenox for DVT prophylaxis. Inflammatory markers including LDH has been declining. Clinically, the patient is stable on Decadron. The white cell count is at 10 with a hemoglobin of 11.2 and a platelet count of 257. BUN 32 with a creatinine of 1.4 and sodium levels of 140. The patient seems to have a component of chronic kidney disease. Creatinine was 1.7 at the time of admission and the patient seems to have a chronic stage III kidney disease with a GFR of 56. The procalcitonin level at time of admission was 1.2 and is currently down to 1.8. Superinfection with b acteria is felt to be less likely and the patient is being given empiric antibiotic coverage. The patient became symptomatic with COVID-19 approximately 2 weeks ago. He has received the original 2 series of vaccination. Objective - Vital Signs Vital signs: Vital Signs Temp 98.1 F 05/26/24 07:11 Pulse 63 05/26/24 07:11 Resp 20 05/26/24 07:11 BP 116/67 05/26/24 07:11 Pulse Ox 96 05/26/24 07:11 FiO2 Intake & Output 05/25/24 05/26/24 05/26/24 18:59 06:59 18:59 Other: Voiding Method Toilet Toilet # Voids 6 - Exam GENERAL EXAM: Alert, pleasant 63-year-old male, on 4 L nasal cannula, fairly comfortable in no apparent distress. HEAD: Normocephalic. EYES: Normal reaction of pupils, equal size. NOSE: Clear with pink turbinates. THROAT: No erythema or exudates. NECK: No masses, no JVD. CHEST: No chest wall deformity. LUNGS: Equal air entry with bilateral scattered rhonchi. CVS: S1 and S2 normal with no audible murmur, regular rhythm. ABDOMEN: No hepatosplenomegaly, normal bowel sounds, no guarding or rigidity. SPINE: No scoliosis or deformity SKIN: No rashes CENTRAL NERVOUS SYSTEM: No focal deficits, tone is normal in all 4 extremities. EXTREMITIES: There is no peripheral edema. No clubbing, no cyanosis. Peripheral pulses are intact. - Labs CBC & Chem 7: 05/26/24 03:17 05/26/24 03:17 Labs: Abnormal Lab Results - Last 24 Hours (Table) 05/25/24 05/25/24 05/26/24 Range/Units 17:00 21:28 03:17 WBC 10.42 H (4.50-10.00) X 10*3/uL RBC 4.10 L (4.40-5.60) X 10*6/uL Hgb 11.2 L (13.0-17.0) g/dL Hct 34.9 L (39.6-50.0) % Immature Gran # 0.16 H (0.00-0.04) X 10*3/uL Neutrophils # 8.48 H (1.80-7.70) X 10*3/uL Eosinophils # 0 L (0.04-0.35) X 10*3/uL BUN (9.0-27.0) mg/dL Est GFR (CKD-EPI) (>=60) BUN/Creatinine Ratio (12.00-20.00) Ratio Glucose (70-110) mg/dL POC Glucose (mg/dL) 291 H 305 H (70-110) mg/dL Calcium (8.7-10.3) mg/dL Total Bilirubin (0.3-1.2) mg/dL ALT (10-49) U/L C-Reactive Protein (0.00-0.80) mg/dL Total Protein (6.2-8.2) g/dL Albumin (3.8-4.9) g/dL 05/26/24 05/26/24 Range/Units 03:17 11:28 WBC (4.50-10.00) X 10*3/uL RBC (4.40-5.60) X 10*6/uL Hgb (13.0-17.0) g/dL Hct (39.6-50.0) % Immature Gran # (0.00-0.04) X 10*3/uL Neutrophils # (1.80-7.70) X 10*3/uL Eosinophils # (0.04-0.35) X 10*3/uL BUN 32.2 H (9.0-27.0) mg/dL Est GFR (CKD-EPI) 56 L (>=60) BUN/Creatinine Ratio 23.00 H (12.00-20.00) Ratio Glucose 205 H (70-110) mg/dL POC Glucose (mg/dL) 203 H (70-110) mg/dL Calcium 7.8 L (8.7-10.3) mg/dL Total Bilirubin 0.2 L (0.3-1.2) mg/dL ALT 50 H (10-49) U/L C-Reactive Protein 5.40 H (0.00-0.80) mg/dL Total Protein 4.7 L (6.2-8.2) g/dL Albumin 2.9 L (3.8-4.9) g/dL Microbiology - Last 24 Hours (Table) 05/23/24 19:00 Blood Culture - Preliminary Blood Assessment and Plan Plan: Acute hypoxemic respiratory failure secondary to COVID-19 infection, COVID-19 pneumonia and/or community-acquired bacterial pneumonia. Procalcitonin 1.22, with subsequent improvement in the procalcitonin level down to 0.8. Ne vertheless, the hypoxic respiratory failure is essentially felt to be related to COVID-19 infection. Procalcitonin is probably elevated to chronic kidney disease. Infection symptoms started approximately 2 weeks ago. The patient is outside the window for remdesivir and currently is on Decadron. Leukocytosis secondary to above, improving Chronic stage III kidney disease Diabetes mellitus Obesity Obstructive sleep apnea Hypertension Hyperlipidemia Benign prostatic hyperplasia Plan: Continue ceftriaxone and azithromycin Continue Symbicort, albuterol Continue Decadron Lovenox for DVT prophylaxis Titrate the FiO2 as tolerated Prone as tolerated Utilizing his home CPAP at night We will continue to follow The patient will likely need home O2 at time of discharge as this may be a prol onged recovery.
[2024-05-26 20:06] LABS: Glucose,Whole Blood 358 mg/dL (70-110)
[2024-05-27 06:40] LABS: Glucose,Whole Blood 115 mg/dL (70-110)
[2024-05-27 09:27] LABS: Basophils # (A) 0.09 X 10*3/uL (0.00-0.10); Eosinophils # (A) 0 X 10*3/uL (0.04-0.35); Eosinophils % (A) 0 %; HCT 36.8 % (39.6-50.0); HGB 11.7 g/dL (13.0-17.0); Lymphocytes # (A) 1.26 X 10*3/uL (0.90-5.00); Lymphocytes % (A) 13.5 %; MCH 27.7 pg (27.0-32.0); MCHC 31.8 g/dL (32.0-37.0); Mean Platelet Volume 11.5 FL (9.5-12.2); Monocytes # (A) 0.72 X 10*3/uL (0.20-1.00); Monocytes % (A) 7.7 %; NRBC Per 100 WBC 0 X 10*3/uL (0.00-0.01); Neutrophils # (A) 6.87 X 10*3/uL (1.80-7.70); Neutrophils % (A) 73.3 %; Platelet Count 252 X 10*3/uL (140-440); RBC 4.23 X 10*6/uL (4.40-5.60); RDW 13.6 % (11.5-14.5); WBC 9.36 X 10*3/uL (4.50-10.00)
[2024-05-27 09:29] LABS: ALT 72 U/L (10-49); AST 29 U/L (14-35); Albumin/Globulin Ratio 1.43 Ratio (1.60-3.17); Alkaline Phosphatase 95 U/L (41-126); BUN/Creat Ratio 22.77 Ratio (12.00-20.00); Blood Urea Nitrogen 29.6 mg/dL (9.0-27.0); Calcium 7.7 mg/dL (8.7-10.3); Chloride 108 mmol/L (96-109); Globulin 2.1 g/dL (1.6-3.3); Glucose 188 mg/dL (70-110); LDH 261 U/L (120-246); Potassium 4.6 mmol/L (3.5-5.5); Sodium 142 mmol/L (135-145); Total Bilirubin 0.3 mg/dL (0.3-1.2); Total Protein 5.1 g/dL (6.2-8.2)
--- NOTE | 2024-05-27 11:29 | P.PN ---
Subjective Progress Note Date: 05/27/24 Hospital Course: 63-year-old male with a past medical history of hypertension, type 2 diabetes, hyperlipidemia, GERD, BPH, JENIFFER who presents for progressive productive cough and shortness of breath. Initial lab work done in the ER showed WBC 15.7, hemoglobin 13.6, platelets 236, PT 12.8, INR 1.2, ABG findings of pH 7.47, pCO2 33, pO2 105 at FiO2 of 28, sodium 137, potassium 3.8, BUN 28, creatinine 1.71, glucose 125, calcium 7.8, magnesium 1.4, troponin negative, CRP 39.7, BNP 253, viral panel positive COVID, otherwise negative. Chest x-ray done independently interpreted in the ER showed bilateral mid and lower patchy opacities. Patient admitted for acute hypoxic respiratory failure secondary to acute COVID-19 pneumonia as well as superimposed bacterial pneumonia. Started on IV steroids and IV antibiotics. Pulmonology consulted. Subjective: Patient seen and examined at bedside. No acute events overnight. Pertinent positives and negatives as discussed above, a complete review of systems was performed and all other systems are negative. Vitals Signs Reviewed. General: [nontoxic], [no distress], [appears at stated age] Derm: [warm], [dry] Head: [atraumatic], [normocephalic], [symmetric] Eyes: [EOMI], [no lid lag], [anicteric sclera] Mouth: [no lip lesion], [mucus membranes moist] Cardiovascular: [S1S2 reg], [no murmur] Lungs: [Bibasilar rales] , [no accessory muscle use], supplemental oxygen Abdominal: [soft], [ nontender to palpation], [no guarding], [no appreciable organomegaly] Ext: [no gross muscle atrophy], [no edema], [no contractures] Neuro: [ CN II-XI grossly intact], [no focal neuro deficits] Psych: [Alert], [oriented], [appropriate affect] Data Reviewed Today: Pertinent Labs: WBC 9.36, hemoglobin 11.7, creatinine 1.3, blood sugars range between 115 09/15/1959 Imaging: No new imaging Assessment and Plan: Patient is severely ill. Needs close monitoring. Prognosis guarded. # Acute hypoxic respiratory failure #Acute COVID-19 pneumonia #Sepsis secondary to superimposed bacterial pneumonia #Respiratory alkalosis -Continue dexamethasone IV 6 mg daily -Status post azithromycin 500 mg IV daily, continue ceftriaxone 2 g IV daily -Blood and sputum culture no growth to date -Wean oxygen -Pulmonology following -Continue on Symbicort twice daily, albuterol 4 times daily -Holding antihypertensive for now -Continue to monitor #Hypomagnesemia, resolved Chronic medical problems: #Diabetes mellitus type 2 #Hyperglycemia, steroid-induced -Holding oral medications -Continue Accu-Cheks and low-dose sliding scale, monitor for hypoglycemia -Continue home long-acting insulin 30 units twice daily -HbA1c 7.4% #CKD stage IIIb -Near baseline creatinine -Continue to monitor #JENIFFER -Continue CPAP #Hypertension -Holding home medications for now #Hyperlipidemia -Continue Lipitor 80 mg at bedtime #GERD -Continue pantoprazole 40 mg #Seasonal allergies -Continue montelukast 10 mg F: P.o. E: Replete as needed N: Consistent carb E: None DVT ppx: Subq Lovenox Code status: Full code Anticipated discharge place: Pending clinical course Anticipated discharge time: Pending clinical course Objective - Vital Signs Vital signs: Vital Signs Temp 96.9 F L 05/27/24 02:32 Pulse 63 05/27/24 02:32 Resp 14 05/27/24 02:32 BP 131/67 05/27/24 02:32 Pulse Ox 93 L 05/27/24 08:43 FiO2 Intake & Output 05/26/24 05/27/24 05/27/24 18:59 06:59 18:59 Intake Total 50 540 560 Balance 50 540 560 Intake: Intake, IV Titration 50 Amount cefTRIAXone 2 gm In 50 Sodium Chloride 0.9% 50 ml @ 100 mls/hr IVPB Q24HR [facility] Rx#:[id number] Oral 540 560 Other: Voiding Method Toilet # Voids 3 - Labs CBC & Chem 7: 05/27/24 03:24 05/27/24 03:24 Labs: Abnormal Lab Results - Last 24 Hours (Table) 05/26/24 05/26/24 05/26/24 Range/Units 11:28 16:38 20:05 RBC (4.40-5.60) X 10*6/uL Hgb (13.0-17.0) g/dL Hct (39.6-50.0) % MCHC (32.0-37.0) g/dL Immature Gran # (0.00-0.04) X 10*3/uL Eosinophils # (0.04-0.35) X 10*3/uL BUN (9.0-27.0) mg/dL BUN/Creatinine Ratio (12.00-20.00) Ratio Glucose (70-110) mg/dL POC Glucose (mg/dL) 203 H 411 H 358 H (70-110) mg/dL Calcium (8.7-10.3) mg/dL ALT (10-49) U/L Lactate Dehydrogenase (120-246) U/L C-Reactive Protein (0.00-0.80) mg/dL Total Protein (6.2-8.2) g/dL Albumin (3.8-4.9) g/dL Albumin/Globulin Ratio (1.60-3.17) Ratio 05/27/24 05/27/24 05/27/24 Range/Units 03:24 03:24 06:37 RBC 4.23 L (4.40-5.60) X 10*6/uL Hgb 11.7 L (13.0-17.0) g/dL Hct 36.8 L (39.6-50.0) % MCHC 31.8 L (32.0-37.0) g/dL Immature Gran # 0.42 H (0.00-0.04) X 10*3/uL Eosinophils # 0 L (0.04-0.35) X 10*3/uL BUN 29.6 H (9.0-27.0) mg/dL BUN/Creatinine Ratio 22.77 H (12.00-20.00) Ratio Glucose 188 H (70-110) mg/dL POC Glucose (mg/dL) 115 H (70-110) mg/dL Calcium 7.7 L (8.7-10.3) mg/dL ALT 72 H (10-49) U/L Lactate Dehydrogenase 261 H (120-246) U/L C-Reactive Protein 2.50 H (0.00-0.80) mg/dL Total Protein 5.1 L (6.2-8.2) g/dL Albumin 3.0 L (3.8-4.9) g/dL Albumin/Globulin Ratio 1.43 L (1.60-3.17) Ratio Microbiology - Last 24 Hours (Table) 05/23/24 19:00 Blood Culture - Preliminary Blood
[2024-05-27 12:27] LABS: Glucose,Whole Blood 185 mg/dL (70-110)
--- NOTE | 2024-05-27 15:06 | P.PN ---
Subjective Progress Note Date: 05/27/24 This is a pleasant 63-year-old male patient with a known history of obesity, obstructive sleep apnea, diabetes mellitus, hypertension, hyperlipidemia, benign prostatic hyperplasia who follows at the [facility] for his primary care needs. Approximately 10 days ago he had developed shortness of breath cough and congestion and was diagnosed with COVID-19. He was here in the emergency department on 05/15/2024. He was given albuterol and prednisone and felt better for several days however on 05/23/2024 he started to feel worse again. He had coughing, dizziness and weakness. His chest x-ray revealed development of bilateral mid and lower lung patchy consolidative opacities concerning for pneumonia. Arterial blood gases on 2 L nasal cannula revealed a PaO2 of 105, pCO2 33 and a pH of 7.47. White count 15.7. Hemoglobin 13.6. INR 1.2. Sodium 140. Potassium 3.9. Bicarb 22. BUN 27. Creatinine 1.4. Glucose 230. LDH 279. C-reactive protein 40. Procalcitonin is high at 1.22. Positive for C OVID-19. He has been initiated on ceftriaxone and azithromycin along with Symbicort, albuterol and Decadron. Lovenox for DVT prophylaxis. He is seen today in consultation on the regular medical floor. He is currently awake and alert. He is coughing. He is short of breath with conversation and minimal activity. He is now requiring oxygen at 5 L/min per nasal cannula. His chest x-ray continues to show scattered multifocal airspace consolidative opacities. Unchanged compared to yesterday. The patient is seen today May 25, 2024 in follow-up on the regular medical floor. He is currently sitting up in bed. Awake and alert in no acute distress. He states he is feeling the same today compared to yesterday. No worse. He is maintaining O2 saturations in the 90s on 4 L/min per nasal cannula. He has tried proning for short periods of time. He is using his home CPAP unit at night. He is continued on Symbicort, albuterol, Decadron. Antibiotics in the form of ceftriaxone and azithromycin. Today's chest x-ray shows similar partially consolidated opacities. White count 14.5. Hemoglobin 11.4. Platelets 264. Glucose 160. 05/26/2024, the patient remains on 4 L of O2 nasal cannula. The patient is known to have JENIFFER, diabetes, hypertension hyperlipidemia and BPH. The patient is currently in the hospital with hypoxic respiratory failure with bilateral pulmonary filtrates consistent with COVID-19 infection/pneumonia. The patient is also on empiric antibiotic coverage. The patient is on Lovenox for DVT prophylaxis. Inflammatory markers including LDH has been declining. Clinically, the patient is stable on Decadron. The white cell count is at 10 with a hemoglobin of 11.2 and a platelet count of 257. BUN 32 with a creatinine of 1.4 and sodium levels of 140. The patient seems to have a component of chronic kidney disease. Creatinine was 1.7 at the time of admission and the patient seems to have a chronic stage III kidney disease with a GFR of 56. The procalcitonin level at time of admission was 1.2 and is currently down to 1.8. Superinfection with b acteria is felt to be less likely and the patient is being given empiric antibiotic coverage. The patient became symptomatic with COVID-19 approximately 2 weeks ago. He has received the original 2 series of vaccination. On 05/27/2024, the patient is being seen for a follow-up. The patient is f eeling somewhat improved compared to yesterday. Oxygen requirements have been fluctuating between 3 and 4 L. While on 3 L, he was able to maintain a pulse ox of 94%. Cough is subsided. The patient is feeling less short of breath compared to yesterday. The patient remains on Decadron 6 mg IV every 24 hours in addition to Symbicort and Ventolin HFA and the patient is also receiving Robitussin DM for cough and congestion. The white cell count is at 9.3 with hemoglobin of 11 and a platelet count of 252. The BUN is at 26 with a creatinine of 1.3 and a sodium levels at 142. No altered mentation. No nausea. No emesis. No chest pain. No other significant events overnight. No reported mental status change. Antibiotic coverage is empiric. Objective - Vital Signs Vital signs: Vital Signs Temp 96.9 F L 05/27/24 02:32 Pulse 63 05/27/24 02:32 Resp 14 05/27/24 02:32 BP 131/67 05/27/24 02:32 Pulse Ox 93 L 05/27/24 08:43 FiO2 Intake & Output 05/26/24 05/27/24 05/27/24 18:59 06:59 18:59 Intake Total 50 540 560 Balance 50 540 560 Intake: Intake, IV Titration 50 Amount cefTRIAXone 2 gm In 50 Sodium Chloride 0.9% 50 ml @ 100 mls/hr IVPB Q[facility]HR [facility] Rx#:[id number] Oral 540 560 Other: Voiding Method Toilet # Voids 3 - Exam GENERAL EXAM: Alert, pleasant 63-year-old male, on 3 L nasal cannula, fairly comfortable in no apparent distress. HEAD: Normocephalic. EYES: Normal reaction of pupils, equal size. NOSE: Clear with pink turbinates. THROAT: No erythema or exudates. NECK: No masses, no JVD. CHEST: No chest wall deformity. LUNGS: Equal air entry with bilateral scattered rhonchi. CVS: S1 and S2 normal with no audible murmur, regular rhythm. ABDOMEN: No hepatosplenomegaly, normal bowel sounds, no guarding or rigidity. SPINE: No scoliosis or deformity SKIN: No rashes CENTRAL NERVOUS SYSTEM: No focal deficits, tone is normal in all 4 extremities. EXTREMITIES: There is no peripheral edema. No clubbing, no cyanosis. Peripheral pulses are intact. - Labs CBC & Chem 7: 05/27/24 03:24 05/27/24 03:24 Labs: Abnormal Lab Results - Last 24 Hours (Table) 05/26/24 05/26/24 05/27/24 Range/Units 16:38 20:05 03:24 RBC 4.23 L (4.40-5.60) X 10*6/uL Hgb 11.7 L (13.0-17.0) g/dL Hct 36.8 L (39.6-50.0) % MCHC 31.8 L (32.0-37.0) g/dL Immature Gran # 0.42 H (0.00-0.04) X 10*3/uL Eosinophils # 0 L (0.04-0.35) X 10*3/uL BUN (9.0-27.0) mg/dL BUN/Creatinine Ratio (12.00-20.00) Ratio Glucose (70-110) mg/dL POC Glucose (mg/dL) 411 H 358 H (70-110) mg/dL Calcium (8.7-10.3) mg/dL ALT (10-49) U/L Lactate Dehydrogenase (120-246) U/L C-Reactive Protein (0.00-0.80) mg/dL Total Protein (6.2-8.2) g/dL Albumin (3.8-4.9) g/dL Albumin/Globulin Ratio (1.60-3.17) Ratio 05/27/24 05/27/24 Range/Units 03:24 06:37 RBC (4.40-5.60) X 10*6/uL Hgb (13.0-17.0) g/dL Hct (39.6-50.0) % MCHC (32.0-37.0) g/dL Immature Gran # (0.00-0.04) X 10*3/uL Eosinophils # (0.04-0.35) X 10*3/uL BUN 29.6 H (9.0-27.0) mg/dL BUN/Creatinine Ratio 22.77 H (12.00-20.00) Ratio Glucose 188 H (70-110) mg/dL POC Glucose (mg/dL) 115 H (70-110) mg/dL Calcium 7.7 L (8.7-10.3) mg/dL ALT 72 H (10-49) U/L Lactate Dehydrogenase 261 H (120-246) U/L C-Reactive Protein 2.50 H (0.00-0.80) mg/dL Total Protein 5.1 L (6.2-8.2) g/dL Albumin 3.0 L (3.8-4.9) g/dL Albumin/Globulin Ratio 1.43 L (1.60-3.17) Ratio Microbiology - Last 24 Hours (Table) 05/23/24 19:00 Blood Culture - Preliminary Blood Assessment and Plan Plan: Acute hypoxemic respiratory failure secondary to COVID-19 infection, COVID-19 pneumonia and/or community-acquired bacterial pneumonia. Procalcitonin 1.22, with subsequent improvement in the procalcitonin level down to 0.8. Nevertheless, the hypoxic respiratory failure is essentially felt to be related to COVID-19 infection. Procalcitonin is probably elevated to chronic kidney disease. Infection symptoms started approximately 2 weeks ago. The patient is outside the window for remdesivir and currently is on Decadron. Leukocytosis secondary to above, improving Chronic stage III kidney disease Diabetes mellitus Obesity Obstructive sleep apnea Hypertension Hyperlipidemia Benign prostatic hyperplasia Plan: Clinically improved compared to yesterday and the patient is currently on 3 L of O2 nasal cannula Cough is subsiding with antitussive medications Continue ceftriaxone and azithromycin Continue Symbicort, albuterol Continue Decadron Lovenox for DVT prophylaxis Titrate the FiO2 as tolerated Prone as tolerated Utilizing his home CPAP at night We will continue to follow The patient will likely need home O2 at time of discharge as this may be a prolonged recovery. Will monitor the patient for another 24 hours and consider a chest x-ray in the morning and possible discharge within the next 24 to 48 hours based on his progress.
[2024-05-27 16:59] LABS: Glucose,Whole Blood 317 mg/dL (70-110)
[2024-05-27 21:16] LABS: Glucose,Whole Blood 323 mg/dL (70-110)
[2024-05-28 06:48] LABS: Glucose,Whole Blood 139 mg/dL (70-110)
--- NOTE | 2024-05-28 07:33 | XR ---
EXAMINATION TYPE: XR chest 1V DATE OF EXAM: 05/28/2024 7:09 AM CLINICAL INDICATION: Male, 63 years old with history of FU pneumonia; H COMPARISON: Chest radiographs from 05/25/2024 TECHNIQUE: XR chest 1V Frontal view of the chest. FINDINGS: Lungs/Pleura: Similar multifocal airspace opacities. No evidence of pneumothorax or pleural effusion. Pulmonary vascularity: Unremarkable. Heart/mediastinum: Cardiomediastinal silhouette is unremarkable. Musculoskeletal: No acute osseous pathology. IMPRESSION: Improved aeration of the lungs [facility] Tony Bender, , 05/28/2024 7:30 AM
[2024-05-28 11:36] LABS: Glucose,Whole Blood 219 mg/dL (70-110)
--- NOTE | 2024-05-28 12:06 | P.DS ---
Providers Date of admission: 05/23/24 13:14 Expected date of discharge: 05/28/24 Attending physician: Ajay Mehta Consults: 05/23/24 14:07 Consult Physician Routine Consulting Provider: Jeremiah Abdi Consult Reason/Comments: COVID pna failed outpt tx Do you want consulting provider notified?: Yes Primary care physician: [facility] Hospital Course: Discharge Diagnosis: # Acute hypoxic respiratory failure #Acute COVID-19 pneumonia #Sepsis secondary to superimposed bacterial pneumonia #Respiratory alkalosis #Hypomagnesemia #Diabetes mellitus type 2 #Hyperglycemia, steroid-induced #CKD stage IIIb #JENIFFER #Hypertension #Hyperlipidemia #GERD #Seasonal allergies Hospital Course: 63-year-old male with a past medical history of hypertension, type 2 diabetes, hyperlipidemia, GERD, BPH, JENIFFER who presents for progressive productive cough and shortness of breath. Initial lab work done in the ER showed WBC 15.7, hemoglobin 13.6, platelets 236, PT 12.8, INR 1.2, ABG findings of pH 7.47, pCO2 33, pO2 105 at FiO2 of 28, sodium 137, potassium 3.8, BUN 28, creatinine 1.71, glucose 125, calcium 7.8, magnesium 1.4, troponin negative, CRP 39.7, BNP 253, viral panel positive COVID, otherwise negative. Chest x-ray done independently interpreted in the ER showed bilateral mid and lower patchy opacities. Patient admitted for acute hypoxic respiratory failure secondary to acute COVID-19 pneumonia as well as superimposed bacterial pneumonia. Started on IV steroids and IV antibiotics. Pulmonology consulted. Oxygen was weaned over the next few days. Patient being discharged on 2 L O2 per nasal cannula. Patient to follow-up with PCP and pulmonology. Adjustments made to his home antihypertensive regimen as well. Patient seen and examined at bedside. Vital signs reviewed and stable. General: Nontoxic, no distress, appears at stated age Derm: Warm, dry Head: Atraumatic, normocephalic, symmetric Eyes: EOMI, no lid lag, anicteric sclera Mouth: No lip lesion, mucus membranes moist Cardiovascular: S1S2 reg, no murmur Lungs: CTA bilateral, no rhonchi, no rales, no accessory muscle use Abdominal: Soft, nontender to palpation, no guarding, no appreciable organomegaly Ext: No gross muscle atrophy, no edema, no contractures Neuro: CN II-XI grossly intact, no focal neuro deficits Psych: Alert, oriented, appropriate affect A total of 32 minutes of time were spent preparing this complex discharge summary. Patient was discharged on 05/28/2024 at 1043. Patient Condition at Discharge: Stable Plan - Discharge Summary Discharge Rx Participant: Yes New Discharge Prescriptions: New Budesonide-Formot 160-4.5 Mcg [Symbicort 160-4.5 Mcg Inhaler] 2 puff INHAL ATION RT-BID #1 each dexAMETHasone [Decadron] 6 mg PO DAILY #4 tablet guaiFENesin-DM 100-10MG/5ML [Robitussin DM] 10 ml PO Q6HR PRN #90 ml PRN Reason: Cough Albuterol Inhaler [Ventolin Hfa Inhaler] 2 puff INHALATION RT-QID PRN #1 each PRN Reason: Shortness Of Breath Continue Omeprazole [PriLOSEC] 20 mg PO BID Aspirin [Adult Low Dose Aspirin EC] 81 mg PO DAILY Atorvastatin Calcium [Lipitor] 80 mg PO HS Losartan [Cozaar] 50 mg PO BID Loratadine [Claritin] 10 mg PO DAILY Montelukast Sodium 10 mg PO DAILY amLODIPine [Norvasc] 10 mg PO DAILY Insulin Aspart [NovoLOG Flexpen] 10 units SQ AC-TID Insulin Glargine,Hum.rec.anlog [Lantus Solostar Pen] 30 units SQ BID metFORMIN HCL ER [Glucophage XR] 500 mg PO BID Discontinued Naproxen 500 mg PO BID PRN PRN Reason: Pain Potassium Citrate [Potassium Citrate ER] 20 meq PO BID hydrALAZINE HCL 25 mg PO BID hydroCHLOROthiazide [Hydrodiuril] 25 mg PO DAILY Discharge Medication List Omeprazole [PriLOSEC] 20 mg PO BID 07/23/15 [History] Aspirin [Adult Low Dose Aspirin EC] 81 mg PO DAILY 04/19/16 [History] Atorvastatin Calcium [Lipitor] 80 mg PO HS 04/04/23 [History] Loratadine [Claritin] 10 mg PO DAILY 04/04/23 [History] Losartan [Cozaar] 50 mg PO BID 04/04/23 [History] amLODIPine [Norvasc] 10 mg PO DAILY 04/04/23 [History] Insulin Aspart [NovoLOG Flexpen] 10 units SQ AC-TID 05/23/24 [History] Insulin Glargine,Hum.rec.anlog [Lantus Solostar Pen] 30 units SQ BID 05/23/24 [History] Montelukast Sodium 10 mg PO DAILY 05/23/24 [History] metFORMIN HCL ER [Glucophage XR] 500 mg PO BID 05/23/24 [History] Albuterol Inhaler [Ventolin Hfa Inhaler] 2 puff INHALATION RT-QID PRN #1 each 05/28/24 [Rx] Budesonide-Formot 160-4.5 Mcg [Symbicort 160-4.5 Mcg Inhaler] 2 puff INHALATION RT-BID #1 each 05/28/24 [Rx] dexAMETHasone [Decadron] 6 mg PO DAILY #4 tablet 05/28/24 [Rx] guaiFENesin-DM 100-10MG/5ML [Robitussin DM] 10 ml PO Q6HR PRN #90 ml 05/28/24 [Rx] Follow up Appointment(s)/Referral(s): Meg Olvera MD [STAFF PHYSICIAN] - 06/18/24 9:15 am (With Dr. Abdi) [facility],Clinic [Primary Care Provider] - 1-2 days (Please call for follow-up appointment.) Patient Instructions/Handouts: Chronic Hypertension (DC), COVID-19 (Coronavirus Disease 2019) (DC) Activity/Diet/Wound Care/Special Instructions: *Patient will need indigent funds for meds at discharge - see employment case manager for form. Please see your PCP and pulmonology. Discharge Disposition: HOME WITH HOME HEALTH SERVICES
[2024-05-28 15:43] LABS: Glucose,Whole Blood 313 mg/dL (70-110)
[2024-05-28 16:51] LABS: Glucose,Whole Blood 329 mg/dL (70-110)
--- NOTE | 2024-05-28 18:17 | P.PN ---
Subjective Progress Note Date: 05/28/24 This is a pleasant 63-year-old male patient with a known history of obesity, obstructive sleep apnea, diabetes mellitus, hypertension, hyperlipidemia, benign prostatic hyperplasia who follows at the [facility] for his primary care needs. Approximately 10 days ago he had developed shortness of breath cough and congestion and was diagnosed with COVID-19. He was here in the emergency department on 05/15/2024. He was given albuterol and prednisone and felt better for several days however on 05/23/2024 he started to feel worse again. He had coughing, dizziness and weakness. His chest x-ray revealed development of bilateral mid and lower lung patchy consolidative opacities concerning for pneumonia. Arterial blood gases on 2 L nasal cannula revealed a PaO2 of 105, pCO2 33 and a pH of 7.47. White count 15.7. Hemoglobin 13.6. INR 1.2. Sodium 140. Potassium 3.9. Bicarb 22. BUN 27. Creatinine 1.4. Glucose 230. LDH 279. C-reactive protein 40. Procalcitonin is high at 1.22. Positive for C OVID-19. He has been initiated on ceftriaxone and azithromycin along with Symbicort, albuterol and Decadron. Lovenox for DVT prophylaxis. He is seen today in consultation on the regular medical floor. He is currently awake and alert. He is coughing. He is short of breath with conversation and minimal activity. He is now requiring oxygen at 5 L/min per nasal cannula. His chest x-ray continues to show scattered multifocal airspace consolidative opacities. Unchanged compared to yesterday. The patient is seen today May 25, 2024 in follow-up on the regular medical floor. He is currently sitting up in bed. Awake and alert in no acute distress. He states he is feeling the same today compared to yesterday. No worse. He is maintaining O2 saturations in the 90s on 4 L/min per nasal cannula. He has tried proning for short periods of time. He is using his home CPAP unit at night. He is continued on Symbicort, albuterol, Decadron. Antibiotics in the form of ceftriaxone and azithromycin. Today's chest x-ray shows similar partially consolidated opacities. White count 14.5. Hemoglobin 11.4. Platelets 264. Glucose 160. 05/26/2024, the patient remains on 4 L of O2 nasal cannula. The patient is known to have JENIFFER, diabetes, hypertension hyperlipidemia and BPH. The patient is currently in the hospital with hypoxic respiratory failure with bilateral pulmonary filtrates consistent with COVID-19 infection/pneumonia. The patient is also on empiric antibiotic coverage. The patient is on Lovenox for DVT prophylaxis. Inflammatory markers including LDH has been declining. Clinically, the patient is stable on Decadron. The white cell count is at 10 with a hemoglobin of 11.2 and a platelet count of 257. BUN 32 with a creatinine of 1.4 and sodium levels of 140. The patient seems to have a component of chronic kidney disease. Creatinine was 1.7 at the time of admission and the patient seems to have a chronic stage III kidney disease with a GFR of 56. The procalcitonin level at time of admission was 1.2 and is currently down to 1.8. Superinfection with b acteria is felt to be less likely and the patient is being given empiric antibiotic coverage. The patient became symptomatic with COVID-19 approximately 2 weeks ago. He has received the original 2 series of vaccination. On 05/27/2024, the patient is being seen for a follow-up. The patient is f eeling somewhat improved compared to yesterday. Oxygen requirements have been fluctuating between 3 and 4 L. While on 3 L, he was able to maintain a pulse ox of 94%. Cough is subsided. The patient is feeling less short of breath compared to yesterday. The patient remains on Decadron 6 mg IV every 24 hours in addition to Symbicort and Ventolin HFA and the patient is also receiving Robitussin DM for cough and congestion. The white cell count is at 9.3 with hemoglobin of 11 and a platelet count of 252. The BUN is at 26 with a creatinine of 1.3 and a sodium levels at 142. No altered mentation. No nausea. No emesis. No chest pain. No other significant events overnight. No reported mental status change. Antibiotic coverage is empiric. 05/28/2024, the patient's oxygenation is improved and the patient is currently on 2 L of oxygen by nasal cannula. The patient is more active. Cough is subsided. Repeat chest x-ray was done today and it showed improvement in aeration and some diminishment in the multifocal airspace disease that was noted earlier and this was attributed to COVID-19. The patient otherwise doing well on Decadron. He is on Symbicort. Blood cultures have been negative. No new labs are available from today and the labs from yesterday was noted. Clinically, much improved. Remains on Lovenox for DVT prophylaxis. Will arrange home O2. Possible discharge home today. Objective - Vital Signs Vital signs: Vital Signs Temp 97.8 F 05/28/24 09:49 Pulse 70 05/28/24 09:49 Resp 17 05/28/24 08:36 BP 121/73 05/28/24 09:49 Pulse Ox 95 05/28/24 09:49 FiO2 Intake & Output 05/27/24 05/28/24 05/28/24 18:59 06:59 18:59 Intake Total 1040 Balance 1040 Intake: Oral 1040 Other: Voiding Method Toilet # Voids 3 6 - Exam GENERAL EXAM: Alert, pleasant 63-year-old male, on 2 L nasal cannula, fairly comfortable in no apparent distress. HEAD: Normocephalic. EYES: Normal reaction of pupils, equal size. NOSE: Clear with pink turbinates. THROAT: No erythema or exudates. NECK: No masses, no JVD. CHEST: No chest wall deformity. LUNGS: Equal air entry with bilateral scattered rhonchi. CVS: S1 and S2 normal with no audible murmur, regular rhythm. ABDOMEN: No hepatosplenomegaly, normal bowel sounds, no guarding or rigidity. SPINE: No scoliosis or deformity SKIN: No rashes CENTRAL NERVOUS SYSTEM: No focal deficits, tone is normal in all 4 extremities. EXTREMITIES: There is no peripheral edema. No clubbing, no cyanosis. Peripheral pulses are intact. - Labs CBC & Chem 7: 05/27/24 03:24 05/27/24 03:24 Labs: Abnormal Lab Results - Last 24 Hours (Table) 05/27/24 05/27/24 05/28/24 Range/Units 16:58 21:11 06:46 POC Glucose (mg/dL) 317 H 323 H 139 H (70-110) mg/dL 05/28/24 Range/Units 11:34 POC Glucose (mg/dL) 219 H (70-110) mg/dL Microbiology - Last 24 Hours (Table) 05/23/24 19:00 Blood Culture - Preliminary Blood Assessment and Plan Plan: Acute hypoxemic respiratory failure secondary to COVID-19 infection, COVID-19 pneumonia and/or community-acquired bacterial pneumonia. Procalcitonin 1.22, with subsequent improvement in the procalcitonin level down to 0.8. Nevertheless, the hypoxic respiratory failure is essentially felt to be related to COVID-19 infection. Procalcitonin is probably elevated to chronic kidney disease. Infection symptoms started approximately 2 weeks ago. The patient is outside the window for remdesivir and currently is on Decadron. The patient is clinically improving. Oxygenation is improved. Chest x-ray is also showing improvement in aeration and conservative management of the multifocal airspace disease. Leukocytosis secondary to above, improving Chronic stage III kidney disease Diabetes mellitus Obesity Obstructive sleep apnea Hypertension Hyperlipidemia Benign prostatic hyperplasia Plan: Clinically improved compared to yesterday and the patient is currently on 2 L of oxygen nasal cannula Cough is subsiding with antitussive medications Cough is subsiding Oxygenation improving Continue Symbicort, albuterol Continue Decadron Lovenox for DVT prophylaxis Titrate the FiO2 as tolerated Prone as tolerated Utilizing his home CPAP at night We will continue to follow The patient will likely need home O2 at time of discharge as this may be a prolonged recovery. Will order home O2. Possible home today either today or within next 24 hours to be followed up on outpatient basis.
[2024-05-28 20:42] LABS: Glucose,Whole Blood 394 mg/dL (70-110)
[2024-05-29 06:39] LABS: Glucose,Whole Blood 172 mg/dL (70-110)
[2024-05-29 08:46] VITALS: RESP 16; TEMP 97.9
--- NOTE | 2024-05-29 11:44 | P.PN ---
Subjective Progress Note Date: 05/29/24 Discharge Diagnosis: # Acute hypoxic respiratory failure #Acute COVID-19 pneumonia #Sepsis secondary to superimposed bacterial pneumonia #Respiratory alkalosis #Hypomagnesemia #Diabetes mellitus type 2 #Hyperglycemia, steroid-induced #CKD stage IIIb #JENIFFER #Hypertension #Hyperlipidemia #GERD #Seasonal allergies Hospital Course: 63-year-old male with a past medical history of hypertension, type 2 diabetes, hyperlipidemia, GERD, BPH, JENIFFER who presents for progressive productive cough and shortness of breath. Initial lab work done in the ER showed WBC 15.7, hemoglobin 13.6, platelets 236, PT 12.8, INR 1.2, ABG findings of pH 7.47, pCO2 33, pO2 105 at FiO2 of 28, sodium 137, potassium 3.8, BUN 28, creatinine 1.71, glucose 125, calcium 7.8, magnesium 1.4, troponin negative, CRP 39.7, BNP 253, viral panel positive COVID, otherwise negative. Chest x-ray done independently interpreted in the ER showed bilateral mid and lower patchy opacities. Patient admitted for acute hypoxic respiratory failure secondary to acute COVID-19 pneumonia as well as superimposed bacterial pneumonia. Started on IV steroids and IV antibiotics. Pulmonology consulted. Oxygen was weaned over the next few days. Patient being discharged on 2 L O2 per nasal cannula. Patient to follow-up with PCP and pulmonology. Adjustments made to his home antihypertensive regimen as well. Patient was unable to be discharged yesterday on 05/28/2024 due to unavailability of oxygen at home. Will be discharged today. Patient seen and examined at bedside. Vital signs reviewed and stable. General: Nontoxic, no distress, appears at stated age Derm: Warm, dry Head: Atraumatic, normocephalic, symmetric Eyes: EOMI, no lid lag, anicteric sclera Mouth: No lip lesion, mucus membranes moist Cardiovascular: S1S2 reg, no murmur Lungs: CTA bilateral, no rhonchi, no rales, no accessory muscle use Abdominal: Soft, nontender to palpation, no guarding, no appreciable organomegaly Ext: No gross muscle atrophy, no edema, no contractures Neuro: CN II-XI grossly intact, no focal neuro deficits Psych: Alert, oriented, appropriate affect A total of 32 minutes of time were spent preparing this complex discharge summary. Patient was discharged on 05/29/2024 at 1014. Objective - Vital Signs Vital signs: Vital Signs Temp 97.9 F 05/29/24 07:35 Pulse 67 05/29/24 07:35 Resp 16 05/29/24 07:35 BP 128/78 05/29/24 07:35 Pulse Ox 96 05/29/24 07:35 FiO2 Intake & Output 05/28/24 05/29/24 05/29/24 18:59 06:59 18:59 Other: Voiding Method Toilet Toilet # Voids 3 2 - Labs CBC & Chem 7: 05/27/24 03:24 05/27/24 03:24 Labs: Abnormal Lab Results - Last 24 Hours (Table) 05/28/24 05/28/24 05/28/24 Range/Units 15:41 16:50 20:40 POC Glucose (mg/dL) 313 H 329 H 394 H (70-110) mg/dL 05/29/24 Range/Units 06:38 POC Glucose (mg/dL) 172 H (70-110) mg/dL
[2024-05-29 11:45] LABS: Glucose,Whole Blood 240 mg/dL (70-110)
[2024-05-29 14:10] VITALS: BMI 36.6
[2024-05-29 14:33] VITALS: BP 126/74; PULSE 72
--- NOTE | 2024-05-29 19:29 | P.PN ---
Subjective Progress Note Date: 05/29/24 This is a pleasant 63-year-old male patient with a known history of obesity, obstructive sleep apnea, diabetes mellitus, hypertension, hyperlipidemia, benign prostatic hyperplasia who follows at the [facility] for his primary care needs. Approximately 10 days ago he had developed shortness of breath cough and congestion and was diagnosed with COVID-19. He was here in the emergency department on 05/15/2024. He was given albuterol and prednisone and felt better for several days however on 05/23/2024 he started to feel worse again. He had coughing, dizziness and weakness. His chest x-ray revealed development of bilateral mid and lower lung patchy consolidative opacities concerning for pneumonia. Arterial blood gases on 2 L nasal cannula revealed a PaO2 of 105, pCO2 33 and a pH of 7.47. White count 15.7. Hemoglobin 13.6. INR 1.2. Sodium 140. Potassium 3.9. Bicarb 22. BUN 27. Creatinine 1.4. Glucose 230. LDH 279. C-reactive protein 40. Procalcitonin is high at 1.22. Positive for C OVID-19. He has been initiated on ceftriaxone and azithromycin along with Symbicort, albuterol and Decadron. Lovenox for DVT prophylaxis. He is seen today in consultation on the regular medical floor. He is currently awake and alert. He is coughing. He is short of breath with conversation and minimal activity. He is now requiring oxygen at 5 L/min per nasal cannula. His chest x-ray continues to show scattered multifocal airspace consolidative opacities. Unchanged compared to yesterday. The patient is seen today May 25, 2024 in follow-up on the regular medical floor. He is currently sitting up in bed. Awake and alert in no acute distress. He states he is feeling the same today compared to yesterday. No worse. He is maintaining O2 saturations in the 90s on 4 L/min per nasal cannula. He has tried proning for short periods of time. He is using his home CPAP unit at night. He is continued on Symbicort, albuterol, Decadron. Antibiotics in the form of ceftriaxone and azithromycin. Today's chest x-ray shows similar partially consolidated opacities. White count 14.5. Hemoglobin 11.4. Platelets 264. Glucose 160. 05/26/2024, the patient remains on 4 L of O2 nasal cannula. The patient is known to have JENIFFER, diabetes, hypertension hyperlipidemia and BPH. The patient is currently in the hospital with hypoxic respiratory failure with bilateral pulmonary filtrates consistent with COVID-19 infection/pneumonia. The patient is also on empiric antibiotic coverage. The patient is on Lovenox for DVT prophylaxis. Inflammatory markers including LDH has been declining. Clinically, the patient is stable on Decadron. The white cell count is at 10 with a hemoglobin of 11.2 and a platelet count of 257. BUN 32 with a creatinine of 1.4 and sodium levels of 140. The patient seems to have a component of chronic kidney disease. Creatinine was 1.7 at the time of admission and the patient seems to have a chronic stage III kidney disease with a GFR of 56. The procalcitonin level at time of admission was 1.2 and is currently down to 1.8. Superinfection with b acteria is felt to be less likely and the patient is being given empiric antibiotic coverage. The patient became symptomatic with COVID-19 approximately 2 weeks ago. He has received the original 2 series of vaccination. On 05/27/2024, the patient is being seen for a follow-up. The patient is f eeling somewhat improved compared to yesterday. Oxygen requirements have been fluctuating between 3 and 4 L. While on 3 L, he was able to maintain a pulse ox of 94%. Cough is subsided. The patient is feeling less short of breath compared to yesterday. The patient remains on Decadron 6 mg IV every 24 hours in addition to Symbicort and Ventolin HFA and the patient is also receiving Robitussin DM for cough and congestion. The white cell count is at 9.3 with hemoglobin of 11 and a platelet count of 252. The BUN is at 26 with a creatinine of 1.3 and a sodium levels at 142. No altered mentation. No nausea. No emesis. No chest pain. No other significant events overnight. No reported mental status change. Antibiotic coverage is empiric. 05/28/2024, the patient's oxygenation is improved and the patient is currently on 2 L of oxygen by nasal cannula. The patient is more active. Cough is subsided. Repeat chest x-ray was done today and it showed improvement in aeration and some diminishment in the multifocal airspace disease that was noted earlier and this was attributed to COVID-19. The patient otherwise doing well on Decadron. He is on Symbicort. Blood cultures have been negative. No new labs are available from today and the labs from yesterday was noted. Clinically, much improved. Remains on Lovenox for DVT prophylaxis. Will arrange home O2. Possible discharge home today. On 05/29/2024, the patient remains on 2 L of oxygen. Discharge was held yesterday the patient was unable to get his home O2. Today, he has no specific complaints. Arrangements are being made for discharge for this patient. No nausea no vomiting. No chest pain. He will be completing a course of Decadron on outpatient basis. He is also utilizing his on CPAP machine from . Objective - Vital Signs Vital signs: Vital Signs Temp 97.9 F 05/29/24 07:35 Pulse 67 05/29/24 07:35 Resp 16 05/29/24 07:35 BP 128/78 05/29/24 07:35 Pulse Ox 96 05/29/24 07:35 FiO2 Intake & Output 05/28/24 05/29/24 05/29/24 18:59 06:59 18:59 Other: Voiding Method Toilet Toilet # Voids 3 2 - Exam GENERAL EXAM: Alert, pleasant 63-year-old male, on 2 L nasal cannula, fairly comfortable in no apparent distress. HEAD: Normocephalic. EYES: Normal reaction of pupils, equal size. NOSE: Clear with pink turbinates. THROAT: No erythema or exudates. NECK: No masses, no JVD. CHEST: No chest wall deformity. LUNGS: Equal air entry with bilateral scattered rhonchi. CVS: S1 and S2 normal with no audible murmur, regular rhythm. ABDOMEN: No hepatosplenomegaly, normal bowel sounds, no guarding or rigidity. SPINE: No scoliosis or deformity SKIN: No rashes CENTRAL NERVOUS SYSTEM: No focal deficits, tone is normal in all 4 extremities. EXTREMITIES: There is no peripheral edema. No clubbing, no cyanosis. Peripheral pulses are intact. - Labs CBC & Chem 7: 05/27/24 03:24 05/27/24 03:24 Labs: Abnormal Lab Results - Last 24 Hours (Table) 05/28/24 05/28/24 05/28/24 Range/Units 15:41 16:50 20:40 POC Glucose (mg/dL) 313 H 329 H 394 H (70-110) mg/dL 05/29/24 05/29/24 Range/Units 06:38 11:44 POC Glucose (mg/dL) 172 H 240 H (70-110) mg/dL Assessment and Plan Plan: Acute hypoxemic respiratory failure secondary to COVID-19 infection, COVID-19 pneumonia and/or community-acquired bacterial pneumonia. Procalcitonin 1.22, with subsequent improvement in the procalcitonin level down to 0.8. Nevertheless, the hypoxic respiratory failure is essentially felt to be related to COVID-19 infection. Procalcitonin is probably elevated to chronic kidney disease. Infection symptoms started approximately 2 weeks ago. The patient is outside the window for remdesivir and currently is on Decadron. The patient is clinically improving. Oxygenation is improved. Chest x-ray is also showing improvement in aeration and conservative management of the multifocal airspace disease. Leukocytosis secondary to above, improving Chronic stage III kidney disease Diabetes mellitus Obesity Obstructive sleep apnea Hypertension Hyperlipidemia Benign prostatic hyperplasia Plan: Clinically improved compared to yesterday and the patient is currently on 2 L of oxygen nasal cannula Cough is subsiding with antitussive medications Cough is subsiding Oxygenation improving Continue Symbicort, albuterol Continue Decadron to be completed on outpatient basis Lovenox for DVT prophylaxis Titrate the FiO2 as tolerated Prone as tolerated Utilizing his home CPAP at night We will continue to follow The patient will have home O2 arranged and the patient will be discharged home today
== END 2024-05-29 16:09 | disposition home health service (06) | DRG 871 ==
LOC: EC 10:02 → 4SSUR 13:14
PROVIDERS: ADMIT Student in an Organized Health Care Education/Training Program; ATTEND Student in an Organized Health Care Education/Training Program
DX: A41.9 Sepsis, unspecified organism (principal); J12.82 Pneumonia due to coronavirus disease 2019; J96.01 Acute respiratory failure with hypoxia; U07.1 COVID-19; J15.9 Unspecified bacterial pneumonia; E87.3 Alkalosis; N17.9 Acute kidney failure, unspecified; I12.9 Hypertensive chronic kidney disease with stage 1 through stage 4 chronic kidney disease, or unspecified chronic kidney disease; E11.22 Type 2 diabetes mellitus with diabetic chronic kidney disease; E11.65 Type 2 diabetes mellitus with hyperglycemia; N18.32 Chronic kidney disease, stage 3b; Z79.4 Long term (current) use of insulin; E66.9 Obesity, unspecified; E86.0 Dehydration; E78.5 Hyperlipidemia, unspecified; G47.33 Obstructive sleep apnea (adult) (pediatric); N40.0 Benign prostatic hyperplasia without lower urinary tract symptoms; E83.42 Hypomagnesemia; K21.9 Gastro-esophageal reflux disease without esophagitis; T38.0X5A Adverse effect of glucocorticoids and synthetic analogues, initial encounter; Z79.84 Long term (current) use of oral hypoglycemic drugs; Z79.899 Other long term (current) drug therapy; Z79.82 Long term (current) use of aspirin
CPT/HCPCS: 36415; 36600; 71045; 71046; 80053; 82805; 83036; 83605; 83615; 83735; 83880; 84100; 84145; 84484; 85025; 85610; 85730; 86140; 87040; 87636; 93005; 94640; 94760; 96361; 96365; 96367; 96368; 96372; 96375; 99285

== ENCOUNTER → 2024-07-23 | Outpatient (CLI) | payer MEDICARE, OTHER ==
[2024-07-23 16:19] LABS: ALT 45 U/L (10-49); AST 31 U/L (14-35); Albumin 4.2 g/dL (3.8-4.9); Albumin/Globulin Ratio 1.62 Ratio (1.60-3.17); Alkaline Phosphatase 113 U/L (41-126); Calcium 9.3 mg/dL (8.7-10.3); Carbon Dioxide 27.4 mmol/L (21.6-31.8); Chloride 103 mmol/L (96-109); Chol/HDL Ratio 4.73 Ratio; Globulin 2.6 g/dL (1.6-3.3); Glucose 236 mg/dL (70-110); LDL Cholesterol,Calculated 78.8 mg/dL (0.0-131.0); Sodium 142 mmol/L (135-145); Total Bilirubin 0.5 mg/dL (0.3-1.2); Total Protein 6.8 g/dL (6.2-8.2)
== END | disposition home or self-care (01) ==
LOC: LABWHC1 10:41
PROVIDERS: ATTEND Internal Medicine Endocrinology, Diabetes & Metabolism
DX: E11.65 Type 2 diabetes mellitus with hyperglycemia (principal)
CPT/HCPCS: 36415; 80053; 80061; 82043; 82570; 83036; 84443

== ENCOUNTER → 2025-01-20 | Outpatient (CLI) | payer OTHER ==
--- NOTE | 2025-01-20 13:18 | CT ---
EXAMINATION TYPE: CT chest wo con DATE OF EXAM: 01/20/2025 COMPARISON: None CLINICAL INDICATION: Male, 64 years old with history of J84.9 INTERSTITIAL PULMONARY DISEASE, UNSPECI FIED; PHH, INTERSTITIAL LUNG DISEASE TECHNIQUE: CT scan of the thorax is performed without IV contrast. CT DLP: [address] CTDI: mGy Automated exposure control for dose reduction was used. FINDINGS: There are mild scattered reticular densities in the lung bases and within the right middle lobe and t he lingula with mild bronchiectasis but no significant peribronchial cuffing. There is no honeycomb l nahid, significant groundglass opacity or nodular densities. There is no airspace consolidation. There is no pleural effusion or pneumothorax. There is no mediastinal, hilar or axillary adenopathy. The main pulmonary artery is mildly prominent at 3.1 cm which could indicate pulmonary hypertension. There is no thoracic aneurysm. The heart size is normal. Limited scanning through the upper abdomen reveals no gross abnormality. IMPRESSION: 1. Mild scattered chronic interstitial changes in the lung bases, right middle lobe and lingula with mild bronchiectasis. Mild dilatation of the main pulmonary artery which could indicate mild pulmonary hypertension. Findings not classic for UIP or IPF. 2. No acute cardiopulmonary disease. [facility], , 01/20/2025 1:15 PM
== END | disposition home or self-care (01) ==
LOC: RADCTMAIN 12:23
PROVIDERS: ATTEND Internal Medicine Critical Care Medicine
DX: J84.9 Interstitial pulmonary disease, unspecified (principal); J47.9 Bronchiectasis, uncomplicated; J98.4 Other disorders of lung
CPT/HCPCS: 71250